=== PATIENT | male | born 1950 | race Caucasian/White ===

== ENCOUNTER → 2017-07-27 17:06 | Outpatient (CLI) | payer MEDICARE, OTHER, SELFPAY ==
--- NOTE | 2017-07-27 17:15 | RAD_ITS ---
STUDY: X-RAY - RIGHT FOOT CLINICAL: Male, 66 years old. Fell off a ladder in April, never had foot looked at, pt has been using that foot at work a lot more and it is now swelling TECHNIQUE: 3 view(s) of the foot. COMPARISON: None. FINDINGS: There is a plantar calcaneal spur. Normal visualized subtalar, talonavicular, calcaneocuboid, tarsal and tarsometatarsal articulations. Healing fractures of the distal second third and fourth metacarpal bone. Healed fracture of the fifth proximal phalanx. There is degenerative arthrosis of the metatarsophalangeal joint of the hallux with a hallux valgus deformity. Normal tibial and fibular sesamoid bones. Normal interphalangeal joint of the great toe. Normal phalanges of the great toe. Normal second through fifth metatarsophalangeal joints. Normal interphalangeal joints and phalanges of the lesser toes. There is soft tissue swelling around the foot. RAD/Foot min 3 Views IMPRESSION: There is soft tissue swelling around the foot. Healing fractures of the distal second third and fourth metacarpal bone. Healed fracture of the fifth proximal phalanx. Electronically Signed: Jorge A Espinoza MD at 18:31 EDT , Service support ,
== END ==
PROVIDERS: Family Provider Family Medicine; PCP Family Medicine; Visit Provider Family Medicine
DX: M79.89 Other specified soft tissue disorders (principal)
CPT/HCPCS: 73630

== ENCOUNTER → 2018-08-08 07:32 | Outpatient (CLI) | payer MEDICARE, OTHER, SELFPAY ==
[2018-08-08 10:02] LABS: Absolute Lymphocyte Count 2.29 X10^3/ul (0.83-4.51); Basophil# 0.03 X10^3/uL; Basophil% 0.6 % (0-1); Eosinophil# 0.21 X10^3/uL; Eosinophils% 4.2 % (0-5); Hematocrit 39.7 % (40-54); Hemoglobin 13.4 g/dl (13.0-16.5); Lymphocyte # 2.29 X10^3/ul (4.0); Lymphocyte % 45.5 % (19-41); Mean Corp Hgb Conc 33.8 g/gl (32-36); Mean Corpuscular Hgb 32.4 pg (27.0-32.0); Mean Corpuscular Volume 95.9 fL (80-94); Mean Platelet Vol. 10.1 fl (6.2-12.0); Monocyte# 0.44 X10^3/uL; Monocyte% 8.7 % (0-10); Neutrophil # 2.04 X10^3/uL (2.7-7.7); Neutrophil % 40.6 % (47-70); Platelet Count 120 K/mm3 (150-450); RBC Distribution Width CV 16.1 % (11.6-14.6); RBC Distribution Width SD 55.4 fl (35.1-43.9); Red Blood Count 4.14 M/mm3 (4.6-6.2)
[2018-08-08 10:08] LABS: POSITIVE COUNT NO; POSITIVE DIFFERENTIAL NO; POSITIVE MORPHOLOGY NO
[2018-08-08 10:15] LABS: Microalbumin,Random Urine 48.8 mg/L (NO RANGE EST.); Microalbumin:Creatinine Ratio 29.2 mg/g CRE (<30 mg/g CRE)
[2018-08-08 10:32] LABS: BUN 11 mg/dL (7-18); Creatinine, Serum 1.13 mg/dL (0.70-1.30); Glucose 112 mg/dL (74-106)
[2018-08-08 10:33] LABS: ALB/GLOB Ratio 1.1 RATIO (0.9-2.4); AST(SGOT) 87 U/L (15-37); Alanine Aminotransfer ALT/SGPT 69 U/L (16-61); Albumin, Serum 3.6 g/dL (3.2-5.0); Alkaline Phosphatase 91 U/L (45-117); Anion Gap 12 (5-15); BUN/Creat Ratio 9.7 RATIO (10-20); Calcium,Total 8.3 mg/dL (8.5-10.1); Chloride 104 mmol/L (98-107); Cholesterol 175 mg/dL (200); EST Glomerular Filtration Rate 68 mL/min (>60); Est Glom Filt Rate - Afr Amer 83 mL/min (>60); Globulin 3.2 g/dL (2.2-4.2); High Density Lipoprotein 41 mg/dL; PSA,Total - Annual Screen 7.91 ng/mL (0.00-4.00); Protein, Total 6.8 g/dL (6.4-8.2); Sodium Level 138 mmol/L (136-145); Triglycerides 770 mg/dL
== END ==
PROVIDERS: Family Provider Family Medicine; PCP Family Medicine; Referring Provider Family Medicine; Visit Provider Family Medicine
DX: E78.5 Hyperlipidemia, unspecified (principal); I10 Essential (primary) hypertension; J44.9 Chronic obstructive pulmonary disease, unspecified; Z12.5 Encounter for screening for malignant neoplasm of prostate
CPT/HCPCS: 36415; 80053; 80061; 82043; 82570; 84153; 85025; G0103

== ENCOUNTER → 2018-11-30 07:27 | Outpatient (CLI) | payer MEDICARE, OTHER, SELFPAY ==
[2018-11-30 08:27] LABS: Absolute Lymphocyte Count 2.25 X10^3/uL (0.83-4.51); Absolute Neutrophil Count 3.1 X10^3/uL (2.0-7.7); Basophil# 0.06 X10^3/uL; Basophil% 0.9 % (0-1); Eosinophil# 0.47 X10^3/uL; Eosinophils% 7.3 % (0-5); Hematocrit 40.9 % (40-54); Hemoglobin 13.5 g/dL (13.0-16.5); Lymphocyte # 2.25 X10^3/ul (4.0); Lymphocyte % 34.9 % (19-41); Mean Corpuscular Hgb 32.1 pg (27.0-32.0); Mean Corpuscular Volume 97.1 fL (80-94); Mean Platelet Vol. 10.1 fl (6.2-12.0); Monocyte# 0.54 X10^3/uL; Monocyte% 8.4 % (0-10); NRBC Flagged by Analyzer 0 % (0-5); Neutrophil # 3.05 X10^3/uL (2.7-7.7); Neutrophil % 47.3 % (47-70); Platelet Count 127 K/mm3 (150-450); RBC Distribution Width CV 15.5 % (11.6-14.6); RBC Distribution Width SD 53.3 fl (35.1-43.9); Red Blood Count 4.21 M/mm3 (4.6-6.2); White Blood Count 6.5 K/mm3 (4.4-11.0)
[2018-11-30 08:51] LABS: Glucose GTT-30 minutes 215 mg/dL (110-170)
[2018-11-30 08:54] LABS: Anion Gap 6 (5-15); BUN 16 mg/dL (7-18); BUN/Creat Ratio 13.6 RATIO (10-20); Calcium,Total 9.1 mg/dL (8.5-10.1); Chloride 106 mmol/L (98-107); Creatinine, Serum 1.18 mg/dL (0.70-1.30); EST Glomerular Filtration Rate 65 mL/min (>60); Est Glom Filt Rate - Afr Amer 78 mL/min (>60); Glucose 111 mg/dL (74-106); Lipase 186 U/L (73-393); Potassium 3.9 mmol/L (3.5-5.1); Sodium Level 138 mmol/L (136-145)
[2018-11-30 08:56] LABS: Glucose GTT- Fasting 112 mg/dL (74-106)
[2018-11-30 09:57] LABS: Glucose GTT- 1 Hour 228 mg/dL (120-170)
[2018-11-30 11:05] LABS: Glucose GTT- 2 Hour 153 mg/dL (70-120)
[2018-11-30 12:18] LABS: Glucose GTT- 4 Hour 88 mg/dL (74-106)
[2018-11-30 12:35] LABS: Glucose GTT- 3 Hour 73 mg/dL (74-106)
== END ==
LOC: LAB.FUTURE 07:30 → LAB 07:44
PROVIDERS: Family Provider Family Medicine; PCP Family Medicine; Referring Provider Family Medicine; Visit Provider Family Medicine
DX: I10 Essential (primary) hypertension (principal)
CPT/HCPCS: 36415; 80048; 82951; 82952; 83690; 85025

== ENCOUNTER → 2019-07-15 08:00 | Outpatient (CLI) | payer MEDICARE, OTHER, SELFPAY ==
[2019-07-15 12:35] LABS: ALB/GLOB Ratio 1.4 RATIO (0.9-2.4); AST(SGOT) 29 U/L (15-37); Alanine Aminotransfer ALT/SGPT 41 U/L (16-61); Albumin, Serum 4.3 g/dL (3.2-5.0); Alkaline Phosphatase 46 U/L (45-117); Anion Gap 9 (5-15); BUN 14 mg/dL (7-18); Calcium,Total 9.7 mg/dL (8.5-10.1); Chloride 104 mmol/L (98-107); Cholesterol 169 mg/dL (200); Creatinine, Serum 0.94 mg/dL (0.70-1.30); EST Glomerular Filtration Rate 85 mL/min (>60); Est Glom Filt Rate - Afr Amer 102 mL/min (>60); Glucose 103 mg/dL (74-106); High Density Lipoprotein 71 mg/dL; Potassium 4.1 mmol/L (3.5-5.1); Protein, Total 7.3 g/dL (6.4-8.2); Sodium Level 139 mmol/L (136-145); Thyroid Stim Hormone (TSH) 2.55 uIU/mL (0.358-3.74); Triglycerides 99 mg/dL; Very Low Density Lipoprotein 20 mg/dL (5-40)
[2019-07-15 12:51] LABS: Microalbumin,Random Urine 47.6 mg/L (NO RANGE EST.); Microalbumin:Creatinine Ratio 64.9 mg/g CRE (<30 mg/g CRE)
== END ==
PROVIDERS: PCP Family Medicine; Referring Provider Family Medicine; Visit Provider Family Medicine
DX: E11.9 Type 2 diabetes mellitus without complications (principal)
CPT/HCPCS: 36415; 80053; 80061; 82043; 82570; 84443

== ENCOUNTER → 2019-10-21 10:01 | Outpatient (CLI) | payer MEDICARE, OTHER, SELFPAY ==
[2019-10-21 12:14] LABS: Absolute Lymphocyte Count 1.87 X10^3/uL (0.83-4.51); Absolute Neutrophil Count 3.5 X10^3/uL (2.0-7.7); Basophil# 0.06 X10^3/uL; Basophil% 0.9 % (0-1); Eosinophil# 0.25 X10^3/uL; Eosinophils% 3.8 % (0-5); Hematocrit 37.9 % (40-54); Hemoglobin 12.9 g/dL (13.0-16.5); Lymphocyte # 1.87 X10^3/ul (4.0); Lymphocyte % 28.7 % (19-41); Mean Corpuscular Hgb 33.5 pg (27.0-32.0); Mean Corpuscular Volume 98.4 fL (80-94); Mean Platelet Vol. 10.7 fl (6.2-12.0); Monocyte# 0.69 X10^3/uL; Monocyte% 10.6 % (0-10); NRBC Flagged by Analyzer 0 % (0-5); Neutrophil # 3.54 X10^3/uL (2.7-7.7); Neutrophil % 54.3 % (47-70); Platelet Count 123 K/mm3 (150-450); RBC Distribution Width CV 15.3 % (11.6-14.6); RBC Distribution Width SD 54.9 fl (35.1-43.9); Red Blood Count 3.85 M/mm3 (4.6-6.2); White Blood Count 6.5 K/mm3 (4.4-11.0)
[2019-10-21 12:49] LABS: ALB/GLOB Ratio 1.2 RATIO (0.9-2.4); AST(SGOT) 31 U/L (15-37); Alanine Aminotransfer ALT/SGPT 61 U/L (16-61); Albumin, Serum 3.9 g/dL (3.2-5.0); Alkaline Phosphatase 54 U/L (45-117); Anion Gap 5 (5-15); BUN 13 mg/dL (7-18); BUN/Creat Ratio 13.1 RATIO (10-20); Calcium,Total 9.3 mg/dL (8.5-10.1); Chloride 104 mmol/L (98-107); EST Glomerular Filtration Rate 79 mL/min (>60); Est Glom Filt Rate - Afr Amer 95 mL/min (>60); Globulin 3.2 g/dL (2.2-4.2); Glucose 111 mg/dL (74-106); Potassium 3.8 mmol/L (3.5-5.1); Protein, Total 7.1 g/dL (6.4-8.2); Sodium Level 137 mmol/L (136-145)
== END ==
PROVIDERS: PCP Family Medicine; Referring Provider Family Medicine; Visit Provider Family Medicine
DX: I10 Essential (primary) hypertension (principal)
CPT/HCPCS: 36415; 80053; 85025

== ENCOUNTER 2020-04-01 14:26 | Outpatient (RCR) | payer MEDICARE, OTHER, SELFPAY | END 2020-04-01 23:59 | LOC: IMMUN 14:26 | PROVIDERS: PCP Family Medicine; Visit Provider Family Medicine | DX: Z23 Encounter for immunization (principal) | CPT/HCPCS: 0011A; 0012A; 91301 ==

== ENCOUNTER → 2020-05-22 11:50 | Outpatient (CLI) | payer MEDICARE, OTHER, SELFPAY ==
[2020-05-22 15:40] LABS: Absolute Lymphocyte Count 1.87 X10^3/uL (0.83-4.51); Basophil# 0.07 X10^3/uL; Basophil% 0.9 % (0-1); Eosinophil# 0.58 X10^3/uL; Eosinophils% 7.9 % (0-5); Hematocrit 38.6 % (40-54); Hemoglobin 12.7 g/dL (13.0-16.5); Lymphocyte # 1.87 X10^3/ul (0.83-4.51); Lymphocyte % 25.4 % (19-41); Mean Corp Hgb Conc 32.9 g/dL (32-36); Mean Corpuscular Hgb 33.2 pg (27.0-32.0); Mean Corpuscular Volume 100.8 fL (80-94); Mean Platelet Vol. 10.5 fl (6.2-12.0); Monocyte# 0.78 X10^3/uL; Monocyte% 10.6 % (0-10); NRBC Flagged by Analyzer 0 % (0-5); Neutrophil # 3.97 X10^3/uL (2.7-7.7); Neutrophil % 53.8 % (47-70); Platelet Count 116 K/mm3 (150-450); RBC Distribution Width CV 14.8 % (11.6-14.6); RBC Distribution Width SD 54.8 fl (35.1-43.9); Red Blood Count 3.83 M/mm3 (4.6-6.2); White Blood Count 7.4 K/mm3 (4.4-11.0)
[2020-05-22 16:01] LABS: Microalbumin:Creatinine Ratio 264.4 mg/g CRE (<30 mg/g CRE)
[2020-05-22 16:08] LABS: Hemoglobin A1c 5.1 % (3.8-5.6)
[2020-05-22 16:33] LABS: ALB/GLOB Ratio 1.4 RATIO (0.9-2.4); AST(SGOT) 35 U/L (15-37); Alanine Aminotransfer ALT/SGPT 73 U/L (16-61); Albumin, Serum 4.3 g/dL (3.2-5.0); Alkaline Phosphatase 58 U/L (45-117); Anion Gap 6 (5-15); BUN 15 mg/dL (7-18); Calcium,Total 9.7 mg/dL (8.5-10.1); Chloride 100 mmol/L (98-107); Creatinine, Serum 1.07 mg/dL (0.70-1.30); EST Glomerular Filtration Rate 72 mL/min (>60); Est Glom Filt Rate - Afr Amer 87 mL/min (>60); Globulin 3.1 g/dL (2.2-4.2); Glucose 105 mg/dL (74-106); Potassium 3.9 mmol/L (3.5-5.1); Protein, Total 7.4 g/dL (6.4-8.2); Sodium Level 132 mmol/L (136-145); Uric Acid 4.5 mg/dL (3.5-7.2)
== END ==
PROVIDERS: PCP Family Medicine; Referring Provider Family Medicine; Visit Provider Family Medicine
DX: I10 Essential (primary) hypertension (principal); J44.9 Chronic obstructive pulmonary disease, unspecified; E11.69 Type 2 diabetes mellitus with other specified complication; M10.9 Gout, unspecified; R97.20 Elevated prostate specific antigen [PSA]
CPT/HCPCS: 36415; 80053; 82043; 82570; 83036; 84153; 84550; 85025

== ENCOUNTER → 2020-06-03 14:35 | Outpatient (CLI) | payer MEDICARE, OTHER, SELFPAY ==
--- NOTE | 2020-06-03 14:40 | CT_ITS ---
STUDY: CT CHEST WITHOUT CONTRAST REASON FOR EXAM: Male, 69 years old. PLEURAL PLAQUE. Hypertension. RADIATION DOSAGE (If Supplied By Facility): CTDIvol = ( 17.03 ) mGy, DLP = ( 651.25 ) mGycm TECHNIQUE: Transaxial imaging was performed without the administration of intravenous contrast material. Multiplanar coronal and sagittal images were reformatted. Individualized dose optimization techniques were used for this CT. COMPARISON: Comparison is made with prior study dated 06/16/2015. FINDINGS: The lungs are normal. Calcified pleural plaques at the lung bases more prominent on the right side. There are calcifications of the coronary arteries. There are multiple small lymph nodes within the mediastinum, which are normal in size and morphology most compatible with reactive lymph hyperplasia. Calcified right hilar lymph nodes. Normal unenhanced pulmonary arteries. There is atherosclerotic calcification of the aortic arch with tortuosity and elongation of the aortic arch and descending thoracic aorta. There are multi-level degenerative changes of the thoracic spine. Calcified splenic granulomas. CT/Chest without Contrast IMPRESSION: Stable calcified pleural plaques at the lung bases worse on the right side. Electronically Signed: Joey Ramirez MD at 15:13 EDT , Service support ,
== END ==
PROVIDERS: PCP Family Medicine; Referring Provider Family Medicine; Visit Provider Family Medicine
DX: J92.9 Pleural plaque without asbestos (principal); J44.9 Chronic obstructive pulmonary disease, unspecified
CPT/HCPCS: 71250; 94060; 94726; 94729

== ENCOUNTER → 2020-09-15 11:14 | Outpatient (CLI) | payer MEDICARE, OTHER, SELFPAY | PROVIDERS: PCP Family Medicine; Referring Provider Nurse Practitioner Adult Health; Visit Provider Nurse Practitioner Adult Health | DX: R97.20 Elevated prostate specific antigen [PSA] (principal) | CPT/HCPCS: 36415; 84153; G0103 ==

== ENCOUNTER → 2020-10-15 11:46 | Outpatient (CLI) | payer MEDICARE, OTHER, SELFPAY ==
[2020-10-15 15:05] LABS: ALB/GLOB Ratio 1.1 RATIO (0.9-2.4); AST(SGOT) 38 U/L (15-37); Alanine Aminotransfer ALT/SGPT 66 U/L (16-61); Albumin, Serum 3.9 g/dL (3.2-5.0); Alkaline Phosphatase 54 U/L (45-117); Anion Gap 6 (5-15); BUN 14 mg/dL (7-18); BUN/Creat Ratio 13.1 RATIO (10-20); Calcium,Total 9.6 mg/dL (8.5-10.1); Chloride 103 mmol/L (98-107); Creatinine, Serum 1.07 mg/dL (0.70-1.30); EST Glomerular Filtration Rate 72 mL/min (>60); Est Glom Filt Rate - Afr Amer 87 mL/min (>60); Globulin 3.4 g/dL (2.2-4.2); Glucose 114 mg/dL (74-106); Magnesium 1.9 mg/dL (1.6-2.6); Potassium 4.3 mmol/L (3.5-5.1); Protein, Total 7.3 g/dL (6.4-8.2); Sodium Level 135 mmol/L (136-145)
[2020-10-15 15:13] LABS: Hemoglobin A1c 5.3 % (3.8-5.6)
== END ==
PROVIDERS: PCP Family Medicine; Referring Provider Family Medicine; Visit Provider Family Medicine
DX: E11.69 Type 2 diabetes mellitus with other specified complication (principal)
CPT/HCPCS: 36415; 80053; 83036; 83735

== ENCOUNTER → 2020-11-16 15:21 | Outpatient (CLI) | payer MEDICARE, OTHER, SELFPAY ==
--- NOTE | 2020-11-17 | IMM_PTH ---
PATIENT: JULIANA SADLER LOC: [facility] U#:[id number] AGE/SX: 74/M ROOM: RE11/16/[address]: Dr. Kendall Adnrade MD : 1950 BED: DIS: SPEC #: [id number] RECD: 11/18/20 11:45 STATUS: MAIN REShira #: [id number] MELISSA: 11/17/20 00:[address]: Kendall Andrade DEPT: IMMUNOHISTOCHEMISTRY RECD BY: Jazmine Butler ENTERED: 11/18/20 11:47 SP TYPE: IMMUNO OTHR DR: Dr. Pérez Marx MD Tissues: D - PROSTATE LEFT E - PROSTATE LEFT Procedures: 34BE12 (add) P40 (add) 34BE12 (initial) PHYSICIAN & INSTITUTION [place] [address] SPECIMEN INFORMATION: Tissue Source: D - Left prostate, apex, core biopsy, E - Left prostate, mid, core biopsy Clinical Info: R97.20 Specimen Number: [id number] D & E CPT code: 04529, 09157 x3 METHODOLOGY: Deparaffinized sections of prefer/formalin-fixed tissue or PAP/DQ stained slides are incubated with monoclonal/polyclonal antibodies/oligonucleotide probes. Localization is made via biotin free immunoperoxidase method. Appropriate controls are performed and reacted as expected. Results on target cell population are indicated in the following table: RESULTS: ANTIBODY / CLONE RESULT Block D P40 (BC28) negative 34BE12 (34BE12) negative Block E P40 (BC28) negative 34BE12 (34BE12) negative These tests were developed and their performance characteristics determined by [facility]. They may not have been cleared or approved by the U.S. Food and Drug Administration. The FDA has determined that such clearance or approval is not necessary. The above immunohistochemical/dualISH markers are ordered and reviewed by the Pathologist. INTERPRETATION: D. Left prostate, apex, core biopsy: Adenocarcinoma. E. Left prostate, mid, core biopsy: Adenocarcinoma. SJ:moon 11/19/2020
--- NOTE | 2020-11-17 | PROSBIL_PTH ---
PATIENT: JULIANA SADLER [facility] U[facility][id number] AGE/SX: 74/M ROOM: RE11/16/[address]: Dr. Kendall Andrade MD : 1950 BED: DIS: SPEC #: [id number] RECD: 11/17/20 13:00 STATUS: MAIN [place] DELIA #: [id number] MELISSA: 11/17/20 00:[address]: Kendall Andrade DEPT: SURGICAL PATHOLOGY RECD BY: Nick Arredondo ENTERED: 11/17/20 13:01 SP TYPE: PROST BX JESSICA DR: Dr. Pérez Marx MD Tissues: A - PROSTATE RIGHT B - PROSTATE RIGHT C - PROSTATE RIGHT D - PROSTATE LEFT E - PROSTATE LEFT F - PROSTATE LEFT Procedures: PROSTATE BX HEADER OPERATION: Prostate biopsy PRE-OP DIAGNOSIS: R97.20 TISSUE SUBMITTED: A - Right apex, B - Right mid, C - Right base, D - Left apex, E - Left mid, F - Left base MICROSCOPIC DIAGNOSIS A. Right prostate, apex, core biopsy: Prostatic adenocarcinoma. Daquan grade: 3+3=6 Number of cores involved: 2/2 Proportion of tissue involved: ~15% Perineural invasion: Not identified. Greatest tumor length: 0.3 cm, discontinuous B. Right prostate, mid, core biopsy: Prostatic adenocarcinoma. Jordan grade: 3+4=7 Number of cores involved: 2/2 Proportion of tissue involved: ~40% Perineural invasion: Not identified. Greatest tumor length: 0.6 cm Focal high-grade prostatic intraepithelial neoplasia (HGPIN). C. Right prostate, base, core biopsy: Prostatic adenocarcinoma. Daquan grade: 4+3=7 Number of cores involved: 2/2 Proportion of tissue involved: >95% Perineural invasion: Not identified. Greatest tumor length: 0.8 cm D. Left prostate, apex, core biopsy: Prostatic adenocarcinoma. Daquan grade: 3+3=6 Number of cores involved: 1/2 Proportion of tissue involved: ~15% Perineural invasion: Not identified. Greatest tumor length: 1.3 cm, discontinuous See comment. E. Left prostate, mid, core biopsy: Prostatic adenocarcinoma. Jordan grade: 3+3=6 Number of cores involved: 1/1 Proportion of tissue involved: ~10% Perineural invasion: Not identified. Greatest tumor length: 0.2 cm Focal high-grade prostatic intraepithelial neoplasia (HGPIN). See comment. F. Left prostate, base, core biopsy: Prostatic adenocarcinoma. Daquan grade: 3+4=7 Number of cores involved: 2/2 Proportion of tissue involved: ~30% Perineural invasion: Not identified. Greatest tumor length: 0.4 cm Focal high-grade prostatic intraepithelial neoplasia (HGPIN). Focal acute and chronic inflammation. SJ:moon 11/18/2020 COMMENT D & E. Immunohistochemistry ([id number]) supports the above diagnosis. MICROSCOPIC DESCRIPTION Slides are reviewed. GROSS DESCRIPTION A - Received is one container designated prostate, right apex. The specimen consists of two elongated fragments of light crabtree-white soft tissue each measuring 0.7 cm in length and 0.1 cm in diameter. The specimen is totally submitted in one cassette. B - Received is one container designated prostate, right mid. The specimen consists of two elongated fragments of light crabtree-white soft tissue each measuring 0.7 cm in length and 0.1 cm in diameter. The specimen is totally submitted in one cassette. C - Received is one container designated prostate, right base. The specimen consists of two elongated fragments of light crabtree-white soft tissue measuring 0.7 and 1.4 cm in length and 0.1 cm in diameter. The specimen is totally submitted in one cassette. D - Received is one container designated prostate, left apex. The specimen consists of two elongated fragments of light crabtree-white soft tissue measuring 1.2 and 1.5 cm in length and 0.1 cm in diameter. The specimen is totally submitted in one cassette. E - Received is one container designated prostate, left mid. The specimen consists of one elongated fragment of light crabtree-white soft tissue measuring 1.3 cm in length and 0.1 cm in diameter. The specimen is totally submitted in one cassette. F - Received is one container designated prostate, left base. The specimen consists of two elongated fragments of light crabtree-white soft tissue measuring 0.6 and 1 cm in length and 0.1 cm in diameter. The specimen is totally submitted in one cassette. / SJ:moon 11/17/20 TC:0 CPT: G0146
== END ==
PROVIDERS: PCP Family Medicine; Referring Provider Urology; Visit Provider Urology
DX: R97.20 Elevated prostate specific antigen [PSA] (principal)
CPT/HCPCS: 88305; 88341; 88342; G0416

== ENCOUNTER → 2020-11-27 13:36 | Outpatient (CLI) | payer MEDICARE, OTHER, SELFPAY ==
--- NOTE | 2020-11-27 13:10 | CT_ITS ---
STUDY: CT ABDOMEN AND PELVIS WITH CONTRAST REASON FOR EXAM: Male, 70 years old. NEOPLASM OF PROSTATE RADIATION DOSAGE (If Supplied By Facility): CTDIvol = ( 15.66 ) mGy, DLP = ( 1805.76 ) mGycm TECHNIQUE: Transaxial images were obtained from the dome of the diaphragm to the symphysis pubis without oral contrast. IV 100ML ISOVUE 300 was administered. Sagittal and coronal images were reconstructed. Individualized dose optimization techniques were used for this CT. COMPARISON: None. 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 The visualized portions of the heart are within normal limits. Multiple small subcentimeter hepatic cysts. Normal gallbladder and extrahepatic biliary system. Normal spleen. Normal pancreas. Normal bilateral adrenal glands. Normal right kidney. Normal left kidney. Normal visualized stomach. Normal small intestine. Normal colon. The appendix is visualized and appears normal. Normal abdominal aorta. Normal inferior vena cava. Normal retroperitoneum. Diffuse bladder wall thickening with mild ureteral dilatation bilaterally consistent with a degree of bladder outlet obstruction. There is enlargement of the prostate gland. There is a small umbilical hernia containing fat. Mild dextroscoliosis of the lumbar spine with degenerative disc disease. CT/Abdomen/Pelvis W IV Cont ONLY IMPRESSION: Enlarged prostate consistent with known prostatic carcinoma with suspected mild amount of bladder outlet obstruction with bladder wall thickening and mild ureteral dilatation bilaterally. No CT evidence of metastatic disease. Electronically Signed: Umair Crowder MD at 8:28 EDT Tel , Service support ,
[2020-11-27 14:00] LABS: CREATININE FINGERSTICK 1.1 mg/dL (0.70-1.30); EGFR FINGERSTICK > 60.0000 mL/min (>60)
== END ==
PROVIDERS: PCP Family Medicine; Referring Provider Urology; Visit Provider Urology
DX: C61 Malignant neoplasm of prostate (principal)
CPT/HCPCS: 74177; Q9967

== ENCOUNTER → 2020-11-30 08:10 | Outpatient (CLI) | payer MEDICARE, OTHER, SELFPAY ==
--- NOTE | 2020-11-30 08:17 | NM_ITS ---
CLINICAL: 70-year-old male with reported history of carcinoma of the prostate. WHOLE BODY 99m Tc MDP RADIONUCLIDE BONE SCINTIGRAPHY COMPARISON: CT of the abdomen-pelvis report 11/27/2020 FINDINGS: Following the intravenous administration of 25.0 mCi of 99m Tc MDP, whole body bone images reveal: 1. Increased radiopharmaceutical concentration is defined in the glenohumeral compartment of the right shoulder-right proximal humeral metaphysis. 2. Facilitated uptake is observed in the acromioclavicular and sternoclavicular compartments of both shoulders, glenohumeral compartment of the left shoulder, bilateral hands, the right wrist, patellofemoral compartments of both knees, first, eighth-ninth and 12th thoracic, first-fifth lumbar vertebra, the left midfoot. 3. The remaining skeletal structures are scintigraphically unremarkable with normal-appearing renal images and urinary bladder activity identified. Mild increased tracer uptake is defined in the medial femoral components of the bilateral and medial tibial compartment of the right presumably asymptomatic knee arthroplasties most consistent with normal postsurgical change. NM/Bone Scan Whole Body IMPRESSION: 1. The increase in tracer uptake observed in the right proximal humerus likely represents severe degenerative arthritis and/or synovial inflammation, and may be further investigated with plain film radiography secondary to the intensity of uptake. 2. Degenerative arthritis appears expressed in the bilateral shoulders and hands, right wrist, thoracic and lumbar spine, left midfoot, the patellofemoral compartments of both knees (in the absence of patellar hardware placement). 3. There is no definitive typical scintigraphic evidence of diffuse axial skeletal metastatic disease on the current examination. Electronically Signed: Umair Belcher DO at 16:08 EDT Tel , Service support ,
== END ==
PROVIDERS: PCP Family Medicine; Referring Provider Urology; Visit Provider Urology
DX: C61 Malignant neoplasm of prostate (principal)
CPT/HCPCS: 78306; A9503

== ENCOUNTER 2021-02-10 05:53 | Day surgery (SDC) | payer MEDICARE, OTHER, SELFPAY ==
--- NOTE | 2021-02-04 14:08 | EKG12_ITS ---
Test Reason : PREOP Blood Pressure : / mmHG Vent. Rate : 095 BPM Atrial Rate : 095 BPM P-R Int : 214 ms QRS Dur : 138 ms QT Int : 378 ms P-R-T Axes : 042 -15 025 degrees QTc Int : 475 ms Sinus rhythm with 1st degree A-V block Right bundle branch block Abnormal ECG Confirmed by MAGGIE FLOOD, NEHAL ([id number]), film editor supervisor ITZ JACOB ([id number]) on 02/10/2021 12:08:08 PM Referred By: Kendall Andrade Confirmed By:NEHAL SERRANO MD
[2021-02-04 15:55] LABS: Hematocrit 36.2 % (40-54); Hemoglobin 12.5 g/dL (13.0-16.5); Mean Corp Hgb Conc 34.5 g/dL (32-36); Mean Corpuscular Hgb 34.4 pg (27.0-32.0); Mean Corpuscular Volume 99.7 fL (80-94); Mean Platelet Vol. 10.1 fl (6.2-12.0); Platelet Count 122 K/mm3 (150-450); RBC Distribution Width CV 14.8 % (11.6-14.6); RBC Distribution Width SD 53.8 fl (35.1-43.9); Red Blood Count 3.63 M/mm3 (4.6-6.2); White Blood Count 7.2 K/mm3 (4.4-11.0)
[2021-02-10] VITALS (11 sets, daily range): BP systolic 142–190; BP diastolic 72–99; PULSE 62–105; RESP 16–18; TEMP 36.1–37.1; O2SAT 93–98; BMI 31.4
--- NOTE | 2021-02-10 | IMM_PTH ---
PATIENT: JULIANA SADLER LOC: [facility] U#:[id number] AGE/SX: 70/M ROOM: RE02/10/[address]: Dr. Kendall Andrade MD : 1950 BED: DIS: 02/11/2021 SPEC #: [id number] RECD: 02/12/21 13:47 STATUS: MAIN REQ #: [id number] MELISSA: 02/10/21 00:[address]: Kendall Andrade DEPT: IMMUNOHISTOCHEMISTRY RECD BY: Jazmine Butler ENTERED: 02/12/21 13:49 SP TYPE: IMMUNO OTHR DR: MD Dr. Pérez Moya MD Tissues: B - Lymph node of pelvis, NOS C - Lymph node of pelvis, NOS Procedures: CK7 (add) Pankeratin (add) CK7 (initial) PHYSICIAN & INSTITUTION [place] [address] SPECIMEN INFORMATION: Tissue Source: B ? Right pelvic lymph nodes, C ? Left pelvic lymph node Clinical Info: Elevated PSA, malignant neoplasm of prostate, nodular prostate Specimen Number: [id number] B1, B2, C1, C2 CPT code: 68916 x2, 27687 x6 METHODOLOGY: Deparaffinized sections of prefer/formalin-fixed tissue or PAP/DQ stained slides are incubated with monoclonal/polyclonal antibodies/oligonucleotide probes. Localization is made via biotin free immunoperoxidase method. Appropriate controls are performed and reacted as expected. Results on target cell population are indicated in the following table: RESULTS: ANTIBODY / CLONE RESULT Block B1 CK7 (OV-TL12/30) negative AE1-3 (AE1/AE3/PCK26) negative Block B2 CK7 (OV-TL12/30) negative AE1-3 (AE1/AE3/PCK26) negative Block C1 CK7 (OV-TL12/30) negative AE1-3 (AE1/AE3/PCK26) negative Block C2 CK7 (OV-TL12/30) negative AE1-3 (AE1/AE3/PCK26) negative These tests were developed and their performance characteristics determined by [facility]. They may not have been cleared or approved by the U.S. Food and Drug Administration. The FDA has determined that such clearance or approval is not necessary. The above immunohistochemical/dualISH markers are ordered and reviewed by the Pathologist. INTERPRETATION: B. Right pelvic lymph nodes, biopsy: Three out of three lymph nodes negative for carcinoma. C. Left pelvic lymph node, biopsy: One out of one lymph node negative for carcinoma. AM:moon 02/15/2021
[2021-02-10] MEDS: Lactated Ringers 1,000 ML 15 ML IV (06:10)
[2021-02-10] MEDS: Lubricating Jelly 60 GM Tube 30 GM (07:30)
--- NOTE | 2021-02-10 07:30 | PROST_PTH ---
PATIENT: JULIANA SADLER LOC: [facility] [place] U#:[id number] AGE/SX: 70/M ROOM: RE02/10/[address]: Dr. Kendall Andrade MD : 1950 BED: DIS: 02/11/2021 SPEC #: [id number] RECD: 02/10/21 14:18 STATUS: MAIN RE #: [id number] MELISSA: 02/10/21 07:[address]: Kendall Andrade DEPT: SURGICAL PATHOLOGY RECD BY: Nick Arredondo ENTERED: 02/11/21 10:38 SP TYPE: PROSTATE OTHR DR: MD Dr. Pérez Moya MD Tissues: A - Adipose tissue B - Lymph node of pelvis, NOS C - Lymph node of pelvis, NOS D - Prostate, NOS Procedures: Surgery Specimen Level IV Surgery Specimen Level V Surgery Specimen Level HEADER OPERATION: Lap robotic radical prostatectomy with nerve sparing and monitor PRE-OP DIAGNOSIS: Elevated PSA, malignant neoplasm of prostate, nodular prostate TISSUE SUBMITTED: A ? Fat over prostate, B ? Right pelvic lymph nodes, C ? Left pelvic lymph node, D - Prostate MICROSCOPIC DIAGNOSIS A. Fat over prostate, biopsy: Mature adipose tissue. No evidence of carcinoma. B. Right pelvic lymph nodes, regional lymphadenectomy: Three out of three lymph nodes negative for carcinoma. See comment. C. Left pelvic lymph node, regional lymphadenectomy: One out of one lymph node negative for carcinoma. See comment. D. Prostate, radical prostatectomy: Adenocarcinoma. See cancer synoptic report below. AM:moon 02/12/2021 COMMENT B & C. Immunohistochemistry ([id number]) supports the above diagnosis. D. PROSTATE CANCER (RADICAL) SUMMARY: Procedure: Radical Prostatectomy Prostate Size: Weight: 98 gm Size: 5.7 x 5 x 4 cm Histologic Type: Adenocarcinoma Histologic Grade: 7 (3+4) Percent of Pattern 4: 30% Percent of Pattern 5: 0 Intraductal Carcinoma: Not identified Tumor Quantitation: 4.5 x 3 x 0.8 cm Extraprostatic Extension: Not identified Urinary Bladder Neck Invasion: Not identified Seminal Vesicle Invasion: Not identified Lymphvascular Invasion: Not identified Perineural Invasion: Present (frequent) Margins: Free of carcinoma Regional Lymph Nodes: Number of lymph nodes involved by carcinoma: 0 Total number of lymph nodes examined: 3 (see specimens B & C) Treatment Effect: Unknown Additional Pathologic Findings: Extensive prostatic intraepithelial neoplasia, benign nodular hyperplasia, glandular and stromal types and minimal chronic inflammation. PATHOLOGIC STAGE: T2 N0 Mx The above summary is in compliance with [employer] (CAP) Cancer Protocols Checklist and [place] Joint Committee on Cancer (AJCC), Staging Manual, 8th Ed. Immunohistochemistry ([id number]) supports the above diagnosis. Case has been reviewed in consultation with Dr. Jimenez who concurs with the above diagnosis. IDC:SJ MICROSCOPIC DESCRIPTION Slides are reviewed. GROSS DESCRIPTION A - Received in fixative is one container labeled with the patient's name and designated fat over prostate. The specimen consists of an irregular fragment of yellow fatty tissue measuring 4 x 3.5 x 1 cm. Serial sections do not reveal mass lesions. Monogram And Letter Paster sections are submitted in one cassette. B - Received in fixative is one container labeled with the patient's name and designated right pelvic lymph nodes. The specimen consists of multiple irregular fragments of yellow-crabtree soft tissue that in aggregate measure 3.5 x 3 x 0.6 cm. Dissection reveals three nodules ranging in size from 1 to 2.2 cm. The nodules are submitted in their entirety in two cassettes as follows: 1 - one nodule, bisected, 2 - two nodules. C - Received in fixative is one container labeled with the patient's name and designated left pelvic lymph node. The specimen consists of multiple irregular fragments of yellow-crabtree soft tissue that in aggregate measure 4 x 3.5 x 0.8 cm. Dissection reveals a single elongated crabtree nodule measuring 3.3 x 1 x 0.8 cm. The nodule is serially sectioned and totally submitted in two cassettes. D - Received in fixative is one container labeled with the patient's name and designated prostate. The specimen consists of a prostate with attached right and left seminal vesicles and vas deferens. The specimen weighs 98 gm. The prostate measures 5.7 cm transversely, 5 cm superior-inferiorly and 4 cm anterior-posteriorly. The specimen is differentially inked as follows: anterior - red, posterior surface - black, right half - blue and left half - green. The prostate is cut from apex to base at 3-4 mm intervals. Serial sections do not reveal distinct mass lesions. Monogram And Letter Paster sections are submitted as follows: 1??bladder shave, 2 - distal urethral margin, 3 - seminal vesicles, 4 - most basal section, 5-8 - apex, 914?- mid portion of prostate, 15-20 - basal portion of prostate. / AM:moon 02/11/21 TC:0 CPT: 19798, 37671 x2, 83275
[2021-02-10] MEDS: Bupivacaine Mpf 0.5% 30 ML VIAL (08:15)
--- NOTE | 2021-02-10 13:08 | PCM.HP.STD ---
HPI - General HPI Narrative JULIANA SADLER, is a 70 M who presents for a radical prostatectomy with bilateral nerve sparing and bilateral pelvic dissection were also going to do nerve monitoring of the pelvic nerves and the suture suspension the urethra. [facility] Medical History (Updated 02/10/21 @ 13:[address] Kendall Andrade MD) Alcohol use Arthritis Asthma Back pain Cancer Diabetes Former smoker High cholesterol History of edema History of stress test Hypertension Loss of hearing Prostate disease Wears glasses Home Medications calcium carbonate [Caltrate 600] 600 mg PO DAILY@0800 01/14/13 [History Last Taken Unknown] coenzyme Q10 [Co Q-10] 60 mg PO DAILY 01/14/13 [History Last Taken Unknown] multivitamin with folic acid [Thera] 1 tab PO DAILY 01/14/13 [History Last Taken Unknown] allopurinol 300 mg PO DAILY 02/03/21 [History Last Taken Unknown] atorvastatin 10 mg PO QHS 02/03/21 [History Last Taken Unknown] clindamycin HCl [Cleocin HCl] 300 mg PO PRN PRN 02/03/21 [History Last Taken Unknown] irbesartan 75 mg PO QHS 02/03/21 [History Last Taken Unknown] metformin 500 mg PO BID 02/03/21 [History Last Taken Unknown] docusate sodium [Colace] 100 mg PO BID #20 cap 02/10/21 [Rx Last Taken Unknown] oxycodone-acetaminophen 1 tab PO Q6H PRN 7 Days #14 tab 02/10/21 [Rx Last Taken Unknown] sulfamethoxazole-trimethoprim [Bactrim DS] 1 tab PO BID #20 tab 02/10/21 [Rx Last Taken Unknown] Allergy/AdvReac Type Severity Reaction Status Date / Time Penicillins Allergy Swelling Verified 02/10/21 06:10 Surgical History (Updated 02/03/21 @ 11:18 by Elena Guan) Hx of appendectomy Hx of lymph node excision Hx of total knee arthroplasty Social History Smoking Status: Former smoker Vital Signs Vital Signs Vital Signs: 02/10/21 06:41 Temperature 97.9 F Temperature Source Temporal Pulse Rate 104 H Respiratory Rate 16 Respiratory Pattern Normal Blood Pressure 174/85 H Blood Pressure Mean 114 Blood Pressure Source Monitor Blood Pressure Position Semi-Fowlers Blood Pressure Location Right Arm Pulse Ox 94 Oxygen Delivery Method Room Air Weight Weight: 102 kg Body Mass Index (BMI) 31.4 Results Lab / Micro Data Result Diagrams: 02/04/21 14:30
--- NOTE | 2021-02-10 13:09 | PCM.DC ---
Discharge Instructions Diet Discharge Diet: Light diet - advance as tolerated and Soft diet Activity Discharge Activity: Return to Normal Activity and May Not Drive (while taking narcotic pain medications.) Dressing / Incision Call your doctor if you observe: Fever of 101 or Higher Catheter: German to leg bag and German to large bag Drain: [place] Follow Up Care Please Follow Up With: Kendall Andrade MD When: Call [phone] for an appointment Test Results: Test results from this visit will be discussed in further detail at your follow-up appointment, if applicable. Discharge Plan Admission Primary Reason for Your Visit: prostate cancer Attending Provider: Kendall Andrade Primary Care Provider: Pérez Marx Consulting Providers: Urbano James Discharge Orders/Prescriptions Prescriptions: New sulfamethoxazole-trimethoprim [Bactrim DS] 800-160 mg tablet 1 tab PO BID Qty: 20 RF: 0 docusate sodium [Colace] 100 mg capsule 100 mg PO BID Qty: 20 RF: 0 oxycodone-acetaminophen 5-325 mg tablet 1 tab PO Q6H PRN (Reason: pain) 7 Days Qty: 14 RF: 0 Continued calcium carbonate [Caltrate 600] 600 MG tablet 600 mg PO DAILY@0800 RF: 0 coenzyme Q10 [Co Q-10] 100 MG capsule 60 mg PO DAILY RF: 0 multivitamin with folic acid [Thera] 1 TABLET tablet 1 tab PO DAILY RF: 0 metformin 500 mg Tablet 500 mg PO BID RF: 0 atorvastatin 10 mg Tablet 10 mg PO QHS RF: 0 irbesartan 75 mg Tablet 75 mg PO QHS RF: 0 allopurinol 300 mg Tablet 300 mg PO DAILY RF: 0 clindamycin HCl [Cleocin HCl] 300 MG capsule 300 mg PO PRN PRN (Reason: DENTAL WORK) RF: 0 Referrals / Follow Up: Pérez Marx MD [Primary Care Provider] - Disposition Disposition (needs filled in before D/C Order can be placed): Home, Self Care
--- NOTE | 2021-02-10 13:10 | PCM.OPRPT ---
Report of Operation Date of Procedure: 02/10/21 Pre-Operative Diagnosis: Prostate cancer, frequency urgency, incontinence mixed, Post-Operative Diagnosis: The same Surgery/Procedure Performed:: Laparoscopic robotic assisted radical prostatectomy, bilateral pelvic lymph node dissection, EMG monitoring of pelvic and sphincter nerves, suture suspension of the urethra Description of Surgical Findings:: Patient presented to the hospital for treatment of his prostate cancer with radical prostatectomy. In the preoperative setting we discussed the options of management for his prostate cancer including active surveillance, radiation treatments, radioactive seeds, and radical robotic prostatectomy. We discussed the side effects of surgery including the potential to lose erections. We discussed the potential to have bladder control problems with stress incontinence which can be temporary or permanent. We discussed the risk of the surgery including the risk of general anesthetic, risk of bleeding, risk of infection, and risk of formation of hernia either incisional hernia or inguinal hernia. After long discussion with the patient the preoperative setting and also reviewed this in the preop area patient signed the consent form and we proceeded with a radical prostatectomy. Patient was taken back to the operating room he was identified, time out procedure was performed and he was placed supine on the table he underwent general anesthesia with intubation. The abdomen was shaved prepped and draped in usual sterile fashion as well as the penis and testicles. A 16 Yemeni catheter was placed into the bladder with clear return of urine. I then made an incision in the umbilicus and dissected down to the fascia advance a Veress needle into the peritoneal cavity and insufflated the peritoneal cavity with CO2 gas. I then placed a 12 mm trocar above the umbilicus. I then visualized the placement of the rest of the trochars, I placed a right arm robotic trocar, and air seal trocar, a suction port 5 mm trocar. And on the left side I placed 2 robotic arms. Once all the trochars were in placed the patient was put in steep Trendelenburg. And the robot was docked the arms were docked and then I placed the 0 degree camera through the robotic arm and also used a 30 degree camera during certain parts of the case. I used scissors in the right arm, prograsp in the third arm, and a bipolar in the second arm. Initial dissection was to free the sigmoid colon off the lateral wall this was done by meticulously dissecting off the peritoneum and the sigmoid colon off the left lateral wall. This then allowed the prograsp to retract the sigmoid colon out of the pelvis. I then went below the bladder and identified the vas deferens incised the peritoneum over the vas deferens and traced the vas deferens below the bladder to the prostate and identified the right and left vasa deferens. Below behind the vas deferens then the seminal vesicles were identified. I then dissected the seminal vesicle free using pinpoint electrocautery and then we identified the other seminal vesicle and then dissected this using pinpoint electrocautery I then elevated the vas deferens and several vesicles off the prostate and was able to sweep the Denonvilliers' fascia off the prostate posteriorly all the way up to the apex of the prostate. Working laterally I made sure I went as lateral as possible to sweep the Denonilliers' fascia off the posterior aspect of the prostate and worked my way back, I then transected the vas deferens and the left and right side the seminal vesicles were then dissected free. And then I pulled out of the pelvis. At this point the bladder was dropped creating the space of Retzius with the bladder on traction with the fourth arm. Using electrocautery I dissected in the anterior peritoneal fascia and then created the space of Retzius dissecting towards the prostate. The pelvic lymph node dissection was then performed both on the left and the right pelvic lymph nodes the nodes that were taken on the right side extended from the right iliac artery lateral pelvic sidewall up to the junction of the artery and the lymph nodes and down to the obturator nerve and then also below the tractor operator laser leveling nerve all the lymph nodes were removed during to remove those lymph nodes we used clips and electrocautery to control small blood vessels and also the control lymphatic. I then went to the left side and again did an extensive lymph node dissection starting of the left iliac artery extending the left iliac vein on the lateral sidewall down to the obturator nerve and the left side beyond the tractor operator laser leveling nerve down further behind it cleaning out all the lymphatic tissue all this tissue was sent off as a specimen we use clips and electrocautery during the dissection. At the end we cleaned out all the lymphatic tissue on the right pelvic wall and no lymphatic tissue in the left pelvic wall. The prostate was then cleaned of the fat over the prostate and the fourth arm was used to retract the bladder and place traction. I then identified the endopelvic fascia that was overlying the prostate on the right side I incised endopelvic fascia and swept the levator muscles off the prostate all the way to the apex on the right side, I then worked my way anterior to the prostate then transected to the puboprostatic ligament and the underlying dorsal vein complex was not injured. I then went to the other side and identified the endopelvic fascia in the left side incised in a fashion the left side and swept the levator muscles off the prostate on the left side all the way up to the apex the puboprostatic ligament on the left side was then dissected and transected I then freed up the fascia overlying the dorsal vein complex. I then used the prograsp to encircled the dorsal vein complex with the prograsp and then switched over to the right and left needle fork truck driver and suture ligated the dorsal vein complex above the prograsp. The prograsp was then placed back in the bladder and put back on traction I then identified the junction between the bladder and the prostate and dissected down between the bladder and the prostate untilI came across the catheter. After the prostate was freed from the bladder we then put in the EMG electrodes through the kit provided coming through the lower abdomen, put the first electrode through the fat to supported against the abdominal wall and then in the pelvic levator muscles on the right side and then pulled the second electrode same thing on the left side and then we stimulated the electrodes we used the action potential did have identified the neurovascular bundle running on the lateral side of the pelvis on the both both the left and right side during the entire case as is like dissecting out the pedicle in the right side and the neurovascular bundle during intermittent fashion I would check the electrodes to make sure that they were still firing and during the entire time both the right side and the left side was still positive with good electrode response and good action potential demonstration that the nerves were spared on both the right and left side. At the completion of the case then the electrodes were then removed.. We then dissected posteriorly to the bladder and prostate to free the prostate and the bladder off each other and the muscles between the bladder and the prostate was then cauterized to free up the bladder. I then went on top of the prostate and identified the endopelvic fascia on top of the prostate this was incised all the way to the apex and then we swept the endopelvic fascia off the prostate laterally and then identified the plane between endopelvic fascia and the prosthetic pseudocapsule and swept the fascia laterally until reaching the course of the neurovascular bundles and then released the neurovascular bundles off the prostate laterally all the way back in a retrograde fashion back to the junction of the pedicles then the prostate was placed on traction with the fourth arm pulling the prostate laterally identified the pedicle to the prostate between the seminal vesicles and the and the neurovascular bundle and this was taken using sequential small hemolocks. After the pedicle was taken the I then dissected underneath the prostate sweeping the neurovascular bundle off the prostate we able to follow the nice smooth plane between the neurovascular bundle and the pseudocapsule all the way to the apex once this was identified we swept this up all the way up to the apex and there was perfect nerve sparing on the right side. Then went to the left side the prostate identified the endopelvic fascia over the left side of the prostate I incised the endopelvic fascia all the way to the apex and then swept this off laterally I then released the neurovascular bundles on the left side of the prostate sweeping him off the prostate laterally I then elevated the prostate up up with the prostate and traction identified the pedicle to the prostate on the left side and then the pedicles taken with sequential Hem-o-augustina clips I then was able to dissected the neurovascular bundle off the left posterior aspect the prostate this was a perfect dissection all the way up on the left side following the pseudocapsule all the way up the left side until we reached the apex of the prostate. After the both the neurovascular bundles has been swept off the posterior to the prostate I then went above and transected the dorsal vein complex there was minimal to no bleeding but then dissected down to the urethra and circumferencial dissected around the urethra I then switched the right and left arm with the needle drivers and I suture-ligated the dorsal vein complex again just to ensure that there was no bleeding from the dorsal vein complex. I then transected through the urethra with scissors and the prostate was then freed and released off the prostate bed and put an Endo Catch bag. At this point the bladder neck was reconstructed and then an anastomosis was performed between the prostate and the bladder with a 3 oh V-Loc stitch in a running fashion starting from the bladder neck at the 6 o'clock position working to the 12 o'clock position with continuous stitches to complete a perfect anastomosis between the bladder and the prostate. I then placed a new catheter into the bladder, an 18 [place]i [place] tip catheter flushed the bladder and there was no leakage from the anastomosis I put 10 cc in the balloon and pulled it up pulled back gently. I then ensured that there was no bleeding from the dorsal vein complex no bleeding from the neurovascular bundles FloSeal was placed as necessary once hemostasis was ensured and adequate then I placed the bladder back in position in the pelvis the prostate was exchanged to the camera port I closed the air seal port with a 10 12 Manny [place] stitch. And the extracted the prostate through the umbilicus. The robot was undocked all the ports were removed under direct visualization then closed the extraction site with 0 Vicryl with a CT1 needle once the extraction site was closed. I then closed all the incision with subcuticular stitches with 4-0 Monocryl and then bandages were placed on the incisions catheter was flushed to make sure it was draining well there was no clots and it was crystal clear patient's anesthetic was reversed he was extubated and taken back to the PACU in stable condition all the needles and sponges and instruments were accounted for. Blood loss was minimal and the drain was a 18 [place]i Carrasquillo catheter. No other surgical drain was left. I was present during the entire case. Surgeon: blas Type of Anesthesia: General Drains: 20 fr [place] Tip carrasquillo Admit VTE Documentation VTE Present on Admission: No VTE Mechan Device Prophylaxis: SCD's VTE Pharm Prophylaxis ordered?: No
--- NOTE | 2021-02-10 14:41 | PCS.PANDOC ---
PANDEMIC DOCUMENTATION INITIATED: Date: 09/21/2020 Time: 190
[2021-02-10] MEDS: Lactated Ringers 1,000 ML 150 ML IV ×2 (14:46→21:09)
[2021-02-10] MEDS: metFORMIN HCl 500 MG Tablet PO (16:46)
[2021-02-10] MEDS: Smz/Tmp Ds Tablet 1 TABLET PO (16:46)
[2021-02-10] MEDS: Losartan Potassium 25 MG Tablet PO (21:09)
[2021-02-10] MEDS: Atorvastatin Calcium 10 MG Tablet PO (21:09)
[2021-02-11 02:24] VITALS: BP 161/75; PULSE 99; RESP 18; TEMP 36.8; O2SAT 96
[2021-02-11] MEDS: Lactated Ringers 1,000 ML 150 ML IV (02:31)
[2021-02-11 07:33] VITALS: BP 130/71; PULSE 105; RESP 16; TEMP 36.9; O2SAT 95
--- NOTE | 2021-02-11 07:40 | PCM.PN.BLA ---
Progress Note Status post radical prostatectomy, up out of bed doing well sitting up in a chair having breakfast Physical Exam Const alert and oriented x3 General Appearance: cooperative HEENT normocephalic and head/scalp atraumatic Eyes PERRL and EOMs intact bilaterally Neck supple, no JVD and no carotid bruits Resp normal respiratory effort, normal air movement and clear to auscultation bilaterally Cardio regular rate and no murmurs GI normal to inspection, nondistended, normoactive bowel sounds and soft to palpation Extremity normal capillary refill General Extremity: no tenderness to palpation of joints or extremities; Negative for edema Skin no rashes or lesions noted and no wounds General Skin Exam: no breakdown Neuro CN's II-XII intact bilaterally Psych affect normal Appearance: appropriate Assessment & Plan Assessment/Plan (1) Malignant neoplasm of prostate: PLAN: Home this morning after breakfast.
[2021-02-11] MEDS: Smz/Tmp Ds Tablet 1 TABLET PO (07:42)
[2021-02-11] MEDS: metFORMIN HCl 500 MG Tablet PO (07:42)
[2021-02-11] MEDS: Multivitamins,Ther W-Minerals Tablet 1 TABLET PO (07:42)
[2021-02-11] MEDS: Calcium (Elemental) 500 MG Tablet PO (07:43)
== END 2021-02-11 10:48 | disposition home or self-care (01) ==
LOC: SDC 05:54 → AC 05:55 → MS2 13:03
PROVIDERS: Anesthesiology; PCP Family Medicine; Referring Provider Urology; Visit Provider Urology
PROC: 0VT04ZZ Resection of Prostate, Percutaneous Endoscopic Approach (ICD-10-PCS; CPT 55866; principal; 2021-02-10 07:10)
DX: C61 Malignant neoplasm of prostate (principal); E11.9 Type 2 diabetes mellitus without complications; N39.46 Mixed incontinence; E78.00 Pure hypercholesterolemia, unspecified; N40.3 Nodular prostate with lower urinary tract symptoms; R35.0 Frequency of micturition; I10 Essential (primary) hypertension; I44.0 Atrioventricular block, first degree; I45.10 Unspecified right bundle-branch block; M19.90 Unspecified osteoarthritis, unspecified site; R97.20 Elevated prostate specific antigen [PSA]; Z23 Encounter for immunization; Z79.84 Long term (current) use of oral hypoglycemic drugs; Z79.899 Other long term (current) drug therapy; Z87.891 Personal history of nicotine dependence
CPT/HCPCS: 55866; 51990; 00865; 36415; 85027; 86850; 86900; 86901; 88304; 88305; 88307; 88309; 88341; 88342; 93005; G0008; J7120; 90686; J2405

== ENCOUNTER 2021-03-26 15:05 | Outpatient (CLI) | payer MEDICARE, OTHER, SELFPAY ==
[2021-03-26 17:41] LABS: Absolute Lymphocyte Count 2.54 X10^3/uL (0.83-4.51); Absolute Neutrophil Count 3.5 X10^3/uL (2.0-7.7); Basophil# 0.03 X10^3/uL; Basophil% 0.4 % (0-1); Eosinophil# 0.36 X10^3/uL; Lymphocyte # 2.54 X10^3/ul (0.83-4.51); Lymphocyte % 35.4 % (19-41); Mean Corp Hgb Conc 33.3 g/dL (32-36); Mean Corpuscular Hgb 33.5 pg (27.0-32.0); Mean Corpuscular Volume 100.6 fL (80-94); Mean Platelet Vol. 10.1 fl (6.2-12.0); Monocyte% 9.8 % (0-10); NRBC Flagged by Analyzer 0 % (0-5); Neutrophil # 3.48 X10^3/uL (2.7-7.7); Neutrophil % 48.6 % (47-70); Platelet Count 123 K/mm3 (150-450); RBC Distribution Width CV 14.9 % (11.6-14.6); RBC Distribution Width SD 55.8 fl (35.1-43.9); Red Blood Count 3.58 M/mm3 (4.6-6.2); White Blood Count 7.2 K/mm3 (4.4-11.0)
[2021-03-26 17:58] LABS: Cholesterol 199 mg/dL (200); High Density Lipoprotein 51 mg/dL; PSA,Total- Diagnostic 0.01 ng/mL (0.0-4.0)
[2021-03-26 18:06] LABS: Microalbumin,Random Urine 93.1 mg/L (NO RANGE EST.); Microalbumin:Creatinine Ratio 115.1 mg/g CRE (<30 mg/g CRE)
== END 2021-03-26 23:59 | disposition home or self-care (01) ==
LOC: MFPLAB 15:10
PROVIDERS: PCP Family Medicine; Referring Provider Family Medicine; Visit Provider Family Medicine
DX: E11.69 Type 2 diabetes mellitus with other specified complication (principal); J44.9 Chronic obstructive pulmonary disease, unspecified; C61 Malignant neoplasm of prostate; I10 Essential (primary) hypertension
CPT/HCPCS: 36415; 82043; 82465; 82570; 83036; 83718; 84153; 85025

== ENCOUNTER → 2021-08-03 | Outpatient (CLI) | payer MEDICARE, OTHER, SELFPAY ==
[2021-08-03 10:22] LABS: PSA,Total- Diagnostic < 0.01 ng/mL (0.0-4.0)
== END | disposition home or self-care (01) ==
LOC: LAB 09:37
PROVIDERS: PCP Family Medicine; Referring Provider Urology; Visit Provider Urology
DX: C61 Malignant neoplasm of prostate (principal)
CPT/HCPCS: 36415; 84153

== ENCOUNTER → 2021-12-06 | Outpatient (CLI) | payer MEDICARE, OTHER, SELFPAY ==
[2021-12-06 11:58] LABS: PSA,Total- Diagnostic < 0.01 ng/mL (0.0-4.0)
== END | disposition home or self-care (01) ==
LOC: LAB 09:37
PROVIDERS: PCP Family Medicine; Referring Provider Urology; Visit Provider Urology
DX: C61 Malignant neoplasm of prostate (principal)
CPT/HCPCS: 36415; 84153

== ENCOUNTER → 2022-06-07 | Outpatient (CLI) | payer MEDICARE, OTHER, SELFPAY ==
[2022-06-07 12:01] LABS: PSA,Total- Diagnostic < 0.01 ng/mL (0.0-4.0)
== END | disposition home or self-care (01) ==
LOC: LAB 10:35
PROVIDERS: PCP Family Medicine; Referring Provider Urology; Visit Provider Urology
DX: C61 Malignant neoplasm of prostate (principal)
CPT/HCPCS: 36415; 84153

== ENCOUNTER 2022-07-07 15:29 | Outpatient (CLI) | payer MEDICARE, OTHER, SELFPAY ==
[2022-07-07 18:24] LABS: Absolute Lymphocyte Count 1.65 X10^3/uL (0.83-4.51); Absolute Neutrophil Count 3.8 X10^3/uL (2.0-7.7); Basophil# 0.07 X10^3/uL; Basophil% 1.1 % (0-1); Eosinophil# 0.28 X10^3/uL; Eosinophils% 4.2 % (0-5); Hematocrit 36.8 % (40-54); Hemoglobin 12.4 g/dL (13.0-16.5); Lymphocyte # 1.65 X10^3/ul (0.83-4.51); Lymphocyte % 24.9 % (19-41); Mean Corp Hgb Conc 33.7 g/dL (32-36); Mean Corpuscular Hgb 34.1 pg (27.0-32.0); Mean Corpuscular Volume 101.1 fL (80-94); Mean Platelet Vol. 10.2 fl (6.2-12.0); Monocyte# 0.74 X10^3/uL; Monocyte% 11.2 % (0-10); NRBC Flagged by Analyzer 0 % (0-5); Neutrophil % 57.2 % (47-70); Platelet Count 135 K/mm3 (150-450); RBC Distribution Width CV 15.3 % (11.6-14.6); RBC Distribution Width SD 56.5 fl (35.1-43.9); Red Blood Count 3.64 M/mm3 (4.6-6.2); White Blood Count 6.6 K/mm3 (4.4-11.0)
[2022-07-07 18:58] LABS: ALB/GLOB Ratio 1.2 RATIO (0.9-2.4); AST(SGOT) 29 U/L (15-37); Alanine Aminotransfer ALT/SGPT 43 U/L (16-61); Alkaline Phosphatase 60 U/L (45-117); Anion Gap 11 (5-15); BUN 18 mg/dL (7-18); BUN/Creat Ratio 17.3 RATIO (10-20); Calcium,Total 9.7 mg/dL (8.5-10.1); Chloride 102 mmol/L (98-107); Creatinine, Serum 1.04 mg/dL (0.70-1.30); EST Glomerular Filtration Rate 74 mL/min (>60); Est Glom Filt Rate - Afr Amer 90 mL/min (>60); Globulin 3.4 g/dL (2.2-4.2); Glucose 125 mg/dL (74-106); Protein, Total 7.4 g/dL (6.4-8.2); Sodium Level 135 mmol/L (136-145); Thyroid Stim Hormone (TSH) 2.42 uIU/mL (0.358-3.74); Uric Acid 4.8 mg/dL (3.5-7.2)
[2022-07-07 20:13] LABS: Microalbumin,Random Urine 71.9 mg/L (NO RANGE EST.); Microalbumin:Creatinine Ratio 186.3 mg/g CRE (<30 mg/g CRE)
[2022-07-08 11:05] LABS: Ferritin 256 ng/mL (26-388); Iron 96 ug/dL (65-175); Iron Binding Capacity,Total 300 ug/dL (250-450)
[2022-07-08 13:17] LABS: Vitamin B12 584 pg/mL (211-911)
== END 2022-07-07 23:59 | disposition home or self-care (01) ==
LOC: MFPLAB 15:30
PROVIDERS: PCP Family Medicine; Visit Provider Family Medicine
DX: M10.9 Gout, unspecified (principal); J44.9 Chronic obstructive pulmonary disease, unspecified; I10 Essential (primary) hypertension; D64.9 Anemia, unspecified
CPT/HCPCS: 36415; 80053; 82043; 82570; 82607; 82728; 83540; 83550; 84443; 84550; 85025

== ENCOUNTER → 2022-08-08 | Outpatient (CLI) | payer MEDICARE, OTHER, SELFPAY ==
--- NOTE | 2022-08-08 15:51 | CT_ITS ---
INDICATION: pleural plaques, COPD EXAMINATION: CT CHEST WITHOUT CONTRAST - CT Chest W/O Contrast Injection TECHNIQUE: Helically acquired images were obtained of the chest. A radiation dose optimization technique was used for this scan. IV Contrast dosage and agent: None. RADIATION DOSAGE (If Supplied By Facility): CTDIvol = ( 17.37 ) mGy, DLP = ( 608.51 ) mGycm COMPARISON: CT chest 06/03/2020 FINDINGS: LUNGS: No consolidation. Mild reticular changes subpleural in the lung bases, unchanged. LARGE AIRWAYS: Unremarkable. PLEURA: No pleural effusion. Calcified pleural plaques fairly diffusely bilaterally, unchanged. No pneumothorax. MEDIASTINUM: Calcified mediastinal and right hilar lymph nodes. HEART: Not enlarged. CORONARY ARTERIES: Coronary artery calcification is seen. AORTA/VESSELS: No aortic aneurysm. ESOPHAGUS: Unremarkable. UPPER ABDOMEN: No acute findings. BONES/SOFT TISSUES: Degenerative changes of the spine. OTHER/LINES: None. CT/Chest without Contrast IMPRESSION: Stable bilateral calcified pleural plaques. Electronically Signed: Hazel Baldwin MD at 21:22 EDT ,
== END | disposition home or self-care (01) ==
PROVIDERS: PCP Family Medicine; Referring Provider Family Medicine; Visit Provider Family Medicine
DX: J44.9 Chronic obstructive pulmonary disease, unspecified (principal)
CPT/HCPCS: 71250

== ENCOUNTER → 2023-01-09 | Outpatient (CLI) | payer MEDICARE, OTHER, SELFPAY ==
[2023-01-09 13:15] LABS: PSA,Total- Diagnostic < 0.01 ng/mL (0.0-4.0)
== END | disposition home or self-care (01) ==
LOC: LAB 11:37
PROVIDERS: PCP Family Medicine; Referring Provider Nurse Practitioner; Visit Provider Nurse Practitioner
DX: C61 Malignant neoplasm of prostate (principal)
CPT/HCPCS: 36415; 84153

== ENCOUNTER → 2023-01-10 | Outpatient (CLI) | payer MEDICARE, OTHER, SELFPAY ==
[2023-01-10 15:33] LABS: Absolute Lymphocyte Count 1.55 X10^3/uL (0.83-4.51); Absolute Neutrophil Count 3.3 X10^3/uL (2.0-7.7); Basophil# 0.05 X10^3/uL; Basophil% 0.8 % (0-1); Eosinophil# 0.52 X10^3/uL; Eosinophils% 8.2 % (0-5); Hematocrit 38.8 % (40-54); Hemoglobin 12.6 g/dL (13.0-16.5); Lymphocyte # 1.55 X10^3/ul (0.83-4.51); Lymphocyte % 24.4 % (19-41); Mean Corp Hgb Conc 32.5 g/dL (32-36); Mean Corpuscular Hgb 33.1 pg (27.0-32.0); Mean Corpuscular Volume 101.8 fL (80-94); Mean Platelet Vol. 10.4 fl (6.2-12.0); Monocyte# 0.85 X10^3/uL; Monocyte% 13.4 % (0-10); NRBC Flagged by Analyzer 0 % (0-5); Neutrophil # 3.29 X10^3/uL (2.7-7.7); Neutrophil % 51.6 % (47-70); Platelet Count 130 K/mm3 (150-450); RBC Distribution Width CV 16.1 % (11.6-14.6); RBC Distribution Width SD 59.7 fl (35.1-43.9); Red Blood Count 3.81 M/mm3 (4.6-6.2); White Blood Count 6.4 K/mm3 (4.4-11.0)
[2023-01-10 15:45] LABS: Vitamin B12 579 pg/mL (211-911)
[2023-01-10 15:54] LABS: ALB/GLOB Ratio 1.2 RATIO (0.9-2.4); AST(SGOT) 22 U/L (15-37); Alanine Aminotransfer ALT/SGPT 38 U/L (16-61); Albumin, Serum 3.8 g/dL (3.2-5.0); Alkaline Phosphatase 57 U/L (45-117); Anion Gap 5 (5-15); BUN 18 mg/dL (7-18); BUN/Creat Ratio 13.6 RATIO (10-20); Calcium,Total 9.9 mg/dL (8.5-10.1); Chloride 102 mmol/L (98-107); Creatinine, Serum 1.32 mg/dL (0.70-1.30); EST Glomerular Filtration Rate 56 mL/min (>60); Est Glom Filt Rate - Afr Amer 68 mL/min (>60); Ferritin 194 ng/mL (26-388); Globulin 3.3 g/dL (2.2-4.2); Glucose 115 mg/dL (74-106); Potassium 4.6 mmol/L (3.5-5.1); Protein, Total 7.1 g/dL (6.4-8.2); Sodium Level 134 mmol/L (136-145)
[2023-01-10 16:00] LABS: Microalbumin:Creatinine Ratio 117.5 mg/g CRE (<30 mg/g CRE)
== END | disposition home or self-care (01) ==
LOC: MFPLAB 12:03
PROVIDERS: PCP Family Medicine; Visit Provider Family Medicine
DX: I10 Essential (primary) hypertension (principal); D64.9 Anemia, unspecified
CPT/HCPCS: 36415; 80053; 82043; 82570; 82607; 82728; 82746; 85025

== ENCOUNTER → 2023-02-16 | Outpatient (CLI) | payer MEDICARE, OTHER, SELFPAY ==
[2023-02-17 17:07] LABS: PROEL- A/G Ratio 1.4 (0.7-1.7); PROEL- Albumin 3.9 g/dL (2.9-4.4); PROEL- Alpha-1 Globulin 0.2 g/dL (0.0-0.4); PROEL- Alpha-2 Globulin 0.7 g/dL (0.4-1.0); PROEL- Beta Globulin 1.1 g/dL (0.7-1.3); PROEL- Gamma Globulin 0.7 g/dL (0.4-1.8); PROEL- Globulin, Total 2.7 g/dL (2.2-3.9); PROEL- TOTAL PROTEIN 6.6 g/dL (6.0-8.5); PROEL-M-Spike Not Observed g/dL (Not Observed)
== END | disposition home or self-care (01) ==
LOC: MFPLAB 11:12
PROVIDERS: PCP Family Medicine; Visit Provider Family Medicine
DX: N28.9 Disorder of kidney and ureter, unspecified (principal)
CPT/HCPCS: 36415; 84165

== ENCOUNTER → 2023-07-10 | Outpatient (CLI) | payer MEDICARE, OTHER, SELFPAY ==
[2023-07-10 13:41] LABS: Vitamin B12 469 pg/mL (211-911)
[2023-07-10 14:40] LABS: Ferritin 239 ng/mL (26-388); Iron 119 ug/dL (65-175); Iron Binding Capacity,Total 325 ug/dL (250-450); PSA,Total- Diagnostic < 0.01 ng/mL (0.0-4.0)
== END | disposition home or self-care (01) ==
LOC: LAB 11:50
PROVIDERS: PCP Family Medicine; Referring Provider Urology; Visit Provider Urology
DX: C61 Malignant neoplasm of prostate (principal)
CPT/HCPCS: 36415; 82607; 82728; 82746; 83540; 83550; 84153

== ENCOUNTER → 2024-01-18 | Outpatient (CLI) | payer MEDICARE, OTHER, SELFPAY ==
[2024-01-18 15:25] LABS: Absolute Lymphocyte Count 2.09 X10^3/uL (0.83-4.51); Absolute Neutrophil Count 4.6 X10^3/uL (2.0-7.7); Basophil# 0.08 X10^3/uL; Basophil% 0.9 % (0-1); Eosinophil# 0.21 X10^3/uL; Eosinophils% 2.5 % (0-5); Hematocrit 39.5 % (40-54); Hemoglobin 12.9 g/dL (13.0-16.5); Lymphocyte # 2.09 X10^3/ul (0.83-4.51); Lymphocyte % 24.8 % (19-41); Mean Corp Hgb Conc 32.7 g/dL (32-36); Mean Corpuscular Hgb 33.2 pg (27.0-32.0); Mean Corpuscular Volume 101.8 fL (80-94); Mean Platelet Vol. 11.7 fl (6.2-12.0); Monocyte# 1.16 X10^3/uL; Monocyte% 13.7 % (0-10); NRBC Flagged by Analyzer 0 % (0-5); Neutrophil # 4.59 X10^3/uL (2.7-7.7); Neutrophil % 54.4 % (47-70); Platelet Count 136 K/mm3 (150-450); RBC Distribution Width CV 16.7 % (11.6-14.6); Red Blood Count 3.88 M/mm3 (4.6-6.2); White Blood Count 8.4 K/mm3 (4.4-11.0)
[2024-01-18 16:08] LABS: ALB/GLOB Ratio 1.1 RATIO (0.9-2.4); AST(SGOT) 42 U/L (15-37); Alanine Aminotransfer ALT/SGPT 77 U/L (16-61); Albumin, Serum 3.6 g/dL (3.2-5.0); Alkaline Phosphatase 72 U/L (45-117); Anion Gap 9 (5-15); BUN 27 mg/dL (7-18); Calcium,Total 9.7 mg/dL (8.5-10.1); Chloride 103 mmol/L (98-107); EST Glomerular Filtration Rate 48 mL/min (>60); Est Glom Filt Rate - Afr Amer 59 mL/min (>60); Globulin 3.2 g/dL (2.2-4.2); Glucose 121 mg/dL (74-106); Magnesium 1.9 mg/dL (1.6-2.6); PSA,Total- Diagnostic < 0.01 ng/mL (0.0-4.0); Potassium 4.6 mmol/L (3.5-5.1); Protein, Total 6.8 g/dL (6.4-8.2); Sodium Level 134 mmol/L (136-145)
== END | disposition home or self-care (01) ==
LOC: MFPLAB 12:09
PROVIDERS: PCP Family Medicine; Referring Provider Family Medicine; Visit Provider Family Medicine
DX: I48.91 Unspecified atrial fibrillation (principal); Z90.79 Acquired absence of other genital organ(s)
CPT/HCPCS: 36415; 80053; 83735; 84153; 84443; 85025

== ENCOUNTER 2024-02-15 13:41 | Inpatient (IN) | payer MEDICARE, OTHER, SELFPAY ==
[2024-02-15] VITALS (15 sets, daily range): BP systolic 99–184; BP diastolic 70–113; PULSE 83–136; RESP 16–24; TEMP 36.4–36.6; O2SAT 93–98; BMI 34.8; BMI 36.8; BMI 36.4
--- NOTE | 2024-02-15 14:00 | EKG12_ITS ---
Test Reason : PALP Blood Pressure : */* mmHG Vent. Rate : 135 BPM Atrial Rate : * BPM P-R Int : * ms QRS Dur : 126 ms QT Int : 302 ms P-R-T Axes : * 18 -10 degrees QTcB Int : 453 ms Atrial fibrillation with rapid ventricular response Right bundle branch block Abnormal ECG Confirmed by Marquis Bautista ([id number]), editorial project manager FRANCIS TAVERAS ([id number]) on 02/16/2024 9:35:56 AM Referred By: Michele Gonsales Confirmed By: Marquis Bautista
--- NOTE | 2024-02-15 14:01 | EX.ED.DYSGE1 ---
HPI History of Present Illness Chief Complaint: Palpitations Narrative Narrative: 73-year-old male presents with his because of atrial fibrillation and palpitations. They state that he was initially diagnosed with atrial fibrillation and started Eliquis on January 17 of last year, almost a month ago. He has had bilateral lower extremity leg swelling and shortness of breath as well. His shortness of breath and dyspnea on exertion actually started in December of last year a month prior to his diagnosis. He was getting an echocardiogram today because he supposed to see Dr. Bautista with cardiology next week, and they state that they were sent down here because of some of the radiologic technologist's findings on the echocardiogram. He is unsure if they completed the entire examination. He denies any recent fevers or chills but he has a cough of white sputum production and leg swelling. No chest pain. [facility] Medical History COPD (chronic obstructive pulmonary disease) Atrial fibrillation Palpitations Gouty arthropathy Erectile dysfunction Essential tremor Lymphedema of leg Hyperlipidemia Loss of hearing Wears glasses Cancer Alcohol use Diabetes Arthritis Prostate disease High cholesterol Back pain Asthma Former smoker History of edema History of stress test Hypertension Home Medications ?Medication ?Instructions ?Recorded ?Last Taken ?Type calcium carbonate (Caltrate 600) 600 mg PO DAILY@0800 01/14/13 Unknown History coenzyme Q10 100 mg capsule (Co 60 mg PO DAILY 01/14/13 Unknown History Q-10) multivitamin with folic acid 400 1 tab PO DAILY 01/14/13 Unknown History mcg tablet (Thera) allopurinol 300 mg tablet 300 mg PO DAILY 02/03/21 Unknown History atorvastatin 10 mg tablet 10 mg PO QHS 02/03/21 Unknown History clindamycin HCl 300 mg capsule 300 mg PO PRN PRN DENTAL WORK 02/03/21 Unknown History (Cleocin HCl) metformin 500 mg tablet 500 mg PO BID 02/03/21 Unknown History docusate sodium 100 mg capsule 100 mg PO BID #20 caps 02/10/21 Unknown Rx (Colace) oxycodone-acetaminophen 5 mg-325 1 tab PO Q6H PRN pain 7 days #14 02/10/21 Unknown Rx mg tablet tabs sulfamethoxazole 800 1 tab PO BID #20 tabs 02/10/21 Unknown Rx mg-trimethoprim 160 mg tablet (Bactrim DS) albuterol sulfate 90 mcg/actuation 2 puff inhalation Q4-6H PRN 02/08/24 Unknown History aerosol inhaler apixaban 5 mg tablet (Eliquis) 5 mg PO BID 02/08/24 Unknown History ipratropium bromide 21 mcg (0.03 intranasal 02/08/24 Unknown History %) nasal spray irbesartan 75 mg tablet 150 mg PO QHS 02/08/24 Unknown History lutein 40 mg-zeaxanthin 1,600 mcg cap PO DAILY 02/08/24 Unknown History capsule metoprolol succinate 25 mg 25 mg PO BID 02/08/24 Unknown History tablet,extended release 24 hr omega 5-yru-loy-fish oil 300 1 cap PO QDAY 02/08/24 Unknown History mg-1,000 mg capsule (Fish Oil) saw palmetto 80 mg capsule 80 mg PO QDAY 02/08/24 Unknown History Allergy/AdvReac Type Severity Reaction Status Date / Time Penicillins Allergy Swelling Verified 02/15/24 13:44 Family History Brother , GI bleed No problems noted. Mother Sudden cardiac Father Hypertension Dementia Carotid artery disease Grandfather Cancer Surgical History History of prostatectomy Hx of appendectomy Hx of lymph node excision Hx of total knee arthroplasty Social History Smoking Status: Former smoker ROS ROS ED ROS Narrative Constitutional: No fever, no chills. HEENT: No sore throat. No neck pain. No loss of vision. No rhinorrhea. Cardiovascular: No chest pain. No palpitations. Positive bilateral pedal edema. Respiratory: Positive cough, positive dyspnea on exertion/shortness of breath. Abdominal: No abdominal pain. No nausea. No vomiting. Genitourinary: No dysuria. No hematuria. Musculoskeletal: No myalgias. No arthralgias. Neurologic: No headaches. No dizziness. No lightheadedness. Skin: No rash. No change in color. EXAM Physical Exam Narrative Exam Narrative: Afebrile. Vital signs noted. Nontoxic-appearing. Cardiovascular examination reveals an irregularly irregular tachycardia. Lungs are clear to auscultation bilaterally. Moving a good amount of air. Abdomen soft and nontender with positive bowel sounds. Neurological examination nonfocal, nonlateralizing. Bilateral trace to +1 pedal edema. Const Vital Signs: 02/15/24 13:42 02/15/24 14:18 Temperature 97.6 F L Temperature Source Oral Pulse Rate 136 H Respiratory Rate 16 Respiratory Effort Short of Breath Blood Pressure 184/111 H Blood Pressure Mean 135 Pulse Ox 98 Oxygen Delivery Method Room Air MDM MDM MDM Narrative Medical decision making narrative: Differential diagnosis includes but not limited to sinus tachycardia versus A-fib with RVR versus CHF versus COPD. EKG was obtained and interpreted by myself independently as A-fib at [address] changes. No STEMI. Patient and his relate history that he started Eliquis on January 17 which was approximately a month ago if not just shy. He did miss 1 dose in the morning on February 04, 2010 days ago. Regarding rate control, his metoprolol had been increased to 25 mg twice a day but he could not tolerate it. Given his A-fib with RVR, for rate control, he will be bolused Cardizem 10 mg intravenously. He had resultant heart rate between 104 and 118 initially. I reviewed his laboratory work and WBC count normal at 9.3 with hemoglobin 13.5, hematocrit 40.1, platelet count is low at 126. When comparing prior laboratories, he has a chronic thrombocytopenia. Review of his electrolyte panel shows hyponatremia of 127. Although he has had chronic hyponatremia with his last few labs this is the lowest it has been, chloride 94. BUN of 32 and creatinine is slowly rising to its high today of 1.67 in comparison to previous labs. While high-sensitivity troponin is 80, I do feel this is more of a troponin leak from his A-fib with RVR. Additionally his BNP is elevated at 434. Chest x-ray in 1 view interpreted by myself does not show CHF or an infiltrate, or pneumothorax. I reviewed the radiology report which confirms my independent interpretation. In discussion with the patient, he was not tolerating his beta-fawad because of other side effects including fatigue. It was not dropping his heart rate significantly. Additionally, he states that he was not on furosemide so I am unsure as to the cause of his hyponatremia. I discussed patient with Dr. Bautista with cardiology. Patient cannot be cardioverted because he has not been anticoagulated for 6 weeks and additionally he missed a dose recently. He suggested further rate control with the diltiazem drip. This was started at 5 mg/h. Additionally, I discussed the patient with Dr. Marquis Bautista with cardiology in person who is seeing the patient in the emergency department. Given the hyponatremia, patient discussed with the hospitalist for admission. Patient discussed with Dr. Leeann Garza. Disposition is admit to PCU. Patient is in stable condition. History & Record Review Discussion w/independent historian: Patient and Family Additional record(s) reviewed:: Prior labs Lab Data Attestation: I reviewed the patient's lab results. Labs: Laboratory Results - last 24 hr 02/15/24 14:00 WBC 9.3 RBC 3.97 L Hgb 13.5 Hct 40.1 MCV 101.0 H MCH 34.0 H MCHC 33.7 RDW Std Deviation 57.5 H RDW Coeff of Zuhair 15.9 H Plt Count 126 L MPV 11.4 Immature Gran % (Auto) 2.100 H Neut % (Auto) 55.9 Lymph % (Auto) 22.3 Gray % (Auto) 13.6 H Eos % (Auto) 4.9 Baso % (Auto) 1.2 H Absolute Neuts (auto) 5.2 Absolute Lymphs (auto) 2.06 Nucleated RBC % 0 Sodium 127 L Potassium 4.6 Chloride 94 L Carbon Dioxide 22.0 Anion Gap 11 BUN 32 H Creatinine 1.67 H Estim Creat Clear Calc 48.94 Est GFR (MDRD) Af Amer 52 L Est GFR (MDRD) Non-Af 43 L BUN/Creatinine Ratio 19.2 Glucose 122 H Calcium 9.3 Troponin I High Sens 80 H B-Natriuretic Peptide 434.2 H Radiography Chest X-Ray - ED: Read by ED Physician and Read by Radiologist Diagnostic Testing: Clinical Impression(s) from Imaging Studies Chest X-Ray 02/15/24 14:35 IMPRESSION: No acute cardiopulmonary pathology considering limited inspiratory effort. Electronically Signed: Michele Dougherty MD at 14:58 EST , Management Discussion w/another healthcare provider: Hospitalist (Dr. Leeann Garza) and Optometry Teacher (Dr. Marquis Bautista, cardiology) Discharge Plan Dx/Rx/DC Orders Clinical Impression: Atrial fibrillation with rapid ventricular response, Acute on chronic kidney failure, Elevated troponin, Elevated brain natriuretic peptide (BNP) level, Hyponatremia Disposition Disposition: Acute Care Hospital [facility]
[2024-02-15] MEDS: dilTIAZem 25 MG/5 ML Vial 10 MG IV BOLUS (14:16)
[2024-02-15 14:22] LABS: Absolute Lymphocyte Count 2.06 X10^3/uL (0.83-4.51); Absolute Neutrophil Count 5.2 X10^3/uL (2.0-7.7); Basophil# 0.11 X10^3/uL; Basophil% 1.2 % (0-1); Eosinophil# 0.45 X10^3/uL; Eosinophils% 4.9 % (0-5); Hematocrit 40.1 % (40-54); Hemoglobin 13.5 g/dL (13.0-16.5); Lymphocyte # 2.06 X10^3/ul (0.83-4.51); Lymphocyte % 22.3 % (19-41); Mean Corp Hgb Conc 33.7 g/dL (32-36); Mean Platelet Vol. 11.4 fl (6.2-12.0); Monocyte# 1.26 X10^3/uL; Monocyte% 13.6 % (0-10); NRBC Flagged by Analyzer 0 % (0-5); Neutrophil # 5.18 X10^3/uL (2.7-7.7); Neutrophil % 55.9 % (47-70); Platelet Count 126 K/mm3 (150-450); RBC Distribution Width CV 15.9 % (11.6-14.6); RBC Distribution Width SD 57.5 fl (35.1-43.9); Red Blood Count 3.97 M/mm3 (4.6-6.2); White Blood Count 9.3 K/mm3 (4.4-11.0)
--- NOTE | 2024-02-15 14:35 | RAD_ITS ---
EXAM: XR CHEST, 1 VIEW CLINICAL INDICATION: Shortness of breath TECHNIQUE: Frontal view of the chest. COMPARISON: CT chest without contrast 04/25/2022. FINDINGS: LUNGS AND PLEURAL SPACES: Pulmonary hypoinflation. No suspicious interstitial infiltrates, consolidation or edema. No pneumothorax. No effusion. HEART: Mild cardiomegaly. MEDIASTINUM: Central airways and mediastinal contour are unremarkable. BONES/JOINTS: Unremarkable. No acute fracture. SOFT TISSUES: Unremarkable. RAD/Chest 1 View (Portable) IMPRESSION: No acute cardiopulmonary pathology considering limited inspiratory effort. Electronically Signed: Michele Dougherty MD at 14:58 EST ,
[2024-02-15 14:38] LABS: Anion Gap 11 (5-15); BUN 32 mg/dL (7-18); BUN/Creat Ratio 19.2 RATIO (10-20); Calcium,Total 9.3 mg/dL (8.5-10.1); Chloride 94 mmol/L (98-107); Creatinine, Serum 1.67 mg/dL (0.70-1.30); EST Glomerular Filtration Rate 43 mL/min (>60); Est Glom Filt Rate - Afr Amer 52 mL/min (>60); Estimated Creatinine Clearance 48.94 ml/min; Glucose 122 mg/dL (74-106); Potassium 4.6 mmol/L (3.5-5.1); Sodium Level 127 mmol/L (136-145); Troponin-I HS 80 pg/mL (3.0-78.0)
[2024-02-15 14:53] LABS: BNP,B-Type NATRIURETIC PEPTIDE 434.2 pg/mL (0-100)
--- NOTE | 2024-02-15 15:31 | HP.PCM.HOS_ITS ---
HPI - General General Date of Admission: 02/15/24 Date of Service: 02/15/24 Chief Complaint: Tachycardia, BL LE edema. HPI Narrative The patient is a 73 y/o M w/ PMHx: Heavier EtOH intake, Obesity, CKD stage III per GFR trending, Chronic Hyponatremia, Chronic Thrombocytopenia, Hx Prostate CA s/p prostatectomy, COPD/Asthma, PAF, HTN, HLD, Essential tremor, Former tobacco use, Diabetes mellitus type II who presents to the [facility] ED on 02/15/2024 with history of recent diagnosis of A-fib and earlier January started on Eliquis and metoprolol at that time with on day of ED presentation planned echocardiogram prior to planned upcoming cardiology visit the following week however he had significantly elevated heart rate and they were concerned prompting the pharmacy technician per diem to refer him to the ED for evaluation. He has had chronic dyspnea, worse with exertion that started in December and chronic lower extremity swelling. He does report persistent leg swelling and occasional cough with white sputum but no fevers or chills nor any chest discomfort. Workup in the ED included T97.6, heart rate 136, BP 184/111, respiratory rate 16, 98% on room air, CBC with WBC 9.3, hemoglobin 13.5, platelet 126 with increased immature granulocyte, BMP with sodium 127, chloride 94, BUN/creatinine 32/1.67, GFR 43, glucose 122, initial troponin 80, BNP 434.2, chest x-ray with no acute cardiopulmonary findings, EKG with atrial fibrillation with RVR. In the ED patient administered 10 mg diltiazem IV bolus x 1 and eventually placed on a diltiazem drip in addition to IV fluids. ED discussed case with cardiology Dr. Bautista. [facility] Medical History COPD (chronic obstructive pulmonary disease) Atrial fibrillation Palpitations Gouty arthropathy Erectile dysfunction Essential tremor Lymphedema of leg Hyperlipidemia Loss of hearing Wears glasses Cancer Alcohol use Diabetes Arthritis Prostate disease High cholesterol Back pain Asthma Former smoker History of edema History of stress test Hypertension Home Medications ?Medication ?Instructions ?Recorded ?Last Taken ?Type calcium carbonate (Caltrate 600) 600 mg PO DAILY@0800 01/14/13 Unknown History coenzyme Q10 100 mg capsule (Co 60 mg PO DAILY 01/14/13 Unknown History Q-10) allopurinol 300 mg tablet 300 mg PO DAILY 02/03/21 Unknown History atorvastatin 10 mg tablet 10 mg PO QHS 02/03/21 Unknown History clindamycin HCl 300 mg capsule 300 mg PO PRN PRN DENTAL WORK 02/03/21 Unknown History (Cleocin HCl) metformin 500 mg tablet 500 mg PO BID 02/03/21 Unknown History docusate sodium 100 mg capsule 100 mg PO BID #20 caps 02/10/21 Unknown Rx (Colace) albuterol sulfate 90 mcg/actuation 2 puff inhalation Q4-6H PRN 02/08/24 Unknown History aerosol inhaler shortness of breath or wheezing apixaban 5 mg tablet (Eliquis) 5 mg PO BID 02/08/24 Unknown History ipratropium bromide 21 mcg (0.03 intranasal PRN allergy symptoms 02/08/24 Unknown History %) nasal spray lutein 40 mg-zeaxanthin 1,600 mcg cap PO DAILY visison 02/08/24 Unknown History capsule metoprolol succinate 25 mg 25 mg PO DAILY 02/08/24 Unknown History tablet,extended release 24 hr omega 6-rih-ssl-fish oil 300 1 cap PO QDAY 02/08/24 Unknown History mg-1,000 mg capsule (Fish Oil) irbesartan 150 mg tablet 150 mg PO DAILY 02/15/24 Unknown History Allergy/AdvReac Type Severity Reaction Status Date / Time Penicillins Allergy Swelling Verified 02/15/24 13:44 Family History Brother , GI bleed No problems noted. Mother Sudden cardiac Father Hypertension Dementia Carotid artery disease Grandfather Cancer Surgical History History of prostatectomy Hx of appendectomy Hx of lymph node excision Hx of total knee arthroplasty Social History (Updated 02/15/24 @ 17:[address] Leeann Garza MD) household members: spouse Smoking Status: Former smoker alcohol intake: current alcohol intake frequency: 3 or more drinks per day Alcohol type: beer and hard liquor details: Notes shot vodka daily as well as 2 beers daily. substance use type: does not use ROS ROS Narrative Admission Review of Systems: CONSTITUTIONAL: No weight loss, fever, chills, + weakness or fatigue. HEENT: Eyes: No visual loss, blurred vision, double vision or yellow sclerae. Ears, Nose, Throat: No hearing loss, sneezing, congestion, runny nose or sore throat. SKIN: No rash or itching, lesions, wounds except + bilateral lower extremity venous stasis skin changes, occasional abrasion, occasional ecchymoses CARDIOVASCULAR: + Increasing weight gain, edema, palpitations/racing heart. No chest pain, chest pressure or chest discomfort, palpitations, orthopnea, syncopal events. RESPIRATORY: + Dyspnea, worse with exertion, occasional cough with white sputum. No wheezing, hemoptysis. GASTROINTESTINAL: No anorexia, nausea, vomiting or diarrhea, abdominal pain, melena, BRBPR. GENITOURINARY: No dysuria, frequency, urgency or retention. NEUROLOGICAL: No headache, dizziness, syncope, paralysis, ataxia, numbness or tingling in the extremities, focal weakness, change in bowel or bladder control, seizure. MUSCULOSKELETAL: + muscle, back pain, joint pain or stiffness. HEMATOLOGIC: No anemia. + easy bleeding/bruising. LYMPHATICS: No enlarged nodes. No history of splenectomy. PSYCHIATRIC: No history of depression or anxiety. ENDOCRINOLOGIC: No reports of sweating, cold or heat intolerance. No polyuria or polydipsia. ALLERGIES:+ History of asthma, rhinitis. Vital Signs Vital Signs Vital Signs: 02/15/24 13:42 02/15/24 14:18 Temperature 97.6 F L Temperature Source Oral Pulse Rate 136 H Respiratory Rate 16 Respiratory Effort Short of Breath Blood Pressure 184/111 H Blood Pressure Mean 135 Pulse Ox 98 Oxygen Delivery Method Room Air Weight Weight: 250 lb Body Mass Index (BMI) 34.8 Physical Exam Narrative Physical Examination: General: Awake, alert, oriented x 3 and cooperative, seated upright in the ED bed, fatigued otherwise no acute distress, Cardizem drip going however rate is still variable. Skin: Normal color, normal turgor, no icterus, no cyanosis except occasional stage ecchymoses, abrasion, bilateral lower extremity venous stasis skin changes. HEENT: AT/NC, EOMI, PERRLA, MMM, no carotid bruits, difficult to discern JVD given thickened neck and dobbs. Lungs: Diminished, greater bases, mildly increased respiratory rate but no distress, no marked rales, ronchi or wheezing. Heart: Irregular irregular; no gallop, rub audible. Abdomen: Soft, obese, NTTP, ND, distant normal BS, no appreciated HSM. Extremities: No cyanosis, no clubbing, pedal to proximal cao edema, see skin. Neurological: Patient awake, alert, oriented as noted, cognitive function intact; pupils equally reactive to light and accommodation, cranial nerves gross normal, moving all 4 extremities, no focal deficits, strength moderately globally decreased Psychiatric: Affect appears fatigued, no acute evidence of depressive or anxiety feelings. Results Lab / Micro Data 02/15/24 14:00 02/15/24 14:00 Labs: Laboratory Results - last 24 hr 02/15/24 14:00: WBC 9.3, RBC 3.97 L, Hgb 13.5, Hct 40.1, MCV 101.0 H, MCH 34.0 H , MCHC 33.7, RDW Std Deviation 57.5 H, RDW Coeff of Zuhair 15.9 H, Plt Count 126 L, MPV 11.4, Immature Gran % (Auto) 2.100 H, Neut % (Auto) 55.9, Lymph % (Auto) 22.3, [place] % (Auto) 13.6 H, Eos % (Auto) 4.9, Baso % (Auto) 1.2 H, Absolute Neuts (auto) 5.2, Absolute Lymphs (auto) 2.06, Nucleated RBC % 0, Sodium 127 L, Potassium 4.6, Chloride 94 L, Carbon Dioxide 22.0, Anion Gap 11, BUN 32 H, C reatinine 1.67 H, Estim Creat Clear Calc 48.94, Est GFR (MDRD) Af Amer 52 L, Est GFR (MDRD) Non-Af 43 L, BUN/Creatinine Ratio 19.2, Glucose 122 H, Calcium 9.3, T roponin I High Sens 80 H, B-Natriuretic Peptide 434.2 H Imaging Radiology Impression Chest X-Ray 02/15/24 14:35 IMPRESSION: No acute cardiopulmonary pathology considering limited inspiratory effort. Electronically Signed: Michele Dougherty MD at 14:58 EST , Assessment & Plan Assessment/Plan (1) Atrial fibrillation with rapid ventricular response: PLAN: Plan The patient is a 73 y/o M w/ PMHx: Heavier EtOH intake, Obesity, CKD stage III per GFR trending, Chronic Hyponatremia, Chronic Thrombocytopenia, Hx Prostate CA s/p prostatectomy, COPD/Asthma, PAF, HTN, HLD, Essential tremor, Former tobacco use, Diabetes mellitus type II who presents to the [facility] ED on 02/15/2024 with history of recent diagnosis of A-fib and earlier January started on Eliquis and metoprolol at that time with on day of ED presentation planned echocardiogram prior to planned upcoming cardiology visit the following week however he had significantly elevated heart rate and they were concerned prompting the pharmacy technician per diem to refer him to the ED for evaluation. He has had chronic dyspnea, worse with exertion that started in December and chronic lower extremity swelling. #1. Paroxsymal atrial fibrillation w/ RVR with concern for possible associated overload/HF unclear type acutely/#2 secondary to persistent RVR: EKG in ED w/ atrial fibrillation w/ RVR. Patient administered Cardizem bolus and transition to drip in ED. Will admit to PCU, will post dose with Lasix 40 mg IV x 1 although may require further diuresis, will maintain on telemetry, obtain cardiac enzyme serial set, clarify if echocardiogram was obtained or not and if not we will obtain now or potentially may need to repeat given his rate with initial attempts, obtain TSH level and magnesium level, continue home Eliquis regimen, continue cardiology consultation, maintain on Cardizem drip, continue metoprolol although given patient's significant fatigue with this medication may need to be altered but will defer to cardiology discretion. #2. Acute on chronic hyponatremia, hypochloremia, higher suspicion for potentially hypovolemic component given recent increase peripheral swelling in the setting of RVR: Admission sodium 127, chloride 94, baseline sodium usually from prior lab review 132-135, given concern for overload in the setting of RVR will actually pulse dose with Lasix 40 mg IV x 1 and continue to closely monitor with repeat CMP in AM. #3. Acute Renal Insufficiency/Elevated Cr on CKD stage II versus progressing disease to Chronic Kidney Disease Stage III, unclear subtype based on previous GFR trending although data only available from 01/2023 onward with a gap in between with GFR earlier more consistent with stage II: Admission BUN/Cr 32/1.67, GFR 43, baseline renal function more recently primarily 1.3-1.5, last noted 01/18/2024 creatinine 1.50, repeat BMP in AM. #4. Chronic COPD/asthma: Will maintain on ATC budesonide therapy, PRN albuterol, HOB, IS parameters. #5. Diabetes mellitus type II: Hold oral home regimen, ADA diet, accu checks w/ ISS. #6. History of prostate cancer: Status post prostatectomy, considered in remission. #7. Former tobacco usage: Encourage continued tobacco cessation. #8. Chronic thrombocytopenia: Unclear etiology, admission platelets 126, baseline similar, continue to trend. #9. Hypertension: Will continue metoprolol, temporally hold irbesartan as utilizing Cardizem drip, add if blood pressure will tolerate, as needed IV hydralazine. #10. Hyperlipidemia: We will continue patient on statin therapy. #11. Obesity: Weight loss and lifestyle changes encouraged. #12. Gout: Will continue patient home allopurinol regimen. #13. Heavier alcohol consumption: Patient notes routine consumption of 1 shot of vodka and 2 beers per day. Discussed appropriate alcohol intake level for his sex. Encouraged decreasing this amount and limiting the number of times weekly. He denies any previous withdrawal symptoms but he has been drinking in this manner for many years although previously heavier he notes. Will maintain on CIWA protocol, MVI, thiamine and folic acid. Magnesium and phosphorus levels requested. #14. DVT prophylaxis: Continue patient home Eliquis regimen. #15. CODE status: Patient ZOË is his who is present and living will is currently in place. Discussed CODE status at length including difference between FULL code, DNR-CCA and DNR-CC status. Following discussions about the differences in these status, requested Full Code status. Advanced Care Planning Face to Face Time: 16 minutes. Charges/Coding Visit Charges Inpatient E&M: 66983 Init Hosp L3 Procedures Hospitalists Procedures: 40466 Advncd Care Plan 30 Min
[2024-02-15] MEDS: Diltiazem 125 MG in Dextrose 5%-Water (100mL Bag) 100 ML IV (15:44)
--- NOTE | 2024-02-15 15:59 | CON.PCM.CA_ITS ---
Assessment & Plan Assessment/Plan (1) Atrial fibrillation with rapid ventricular response: PLAN: The patient by history appears to have gone in atrial fibrillation probably in early December around December 16, 2023 when he first had his profound sudden onset of dyspnea on exertion. He was originally documented January 17, 2024 on EKG with a heart rate of 140. The patient has been on Eliquis since January 18, 2024 he missed 1 dose since that point in time. Since that point in time the patient has deteriorated with retaining fluid with lower extremity edema and then increasing abdominal girth. He has progressively lost his exercise tolerance to the point he can minimally get around in the house to do any activities. The patient has been started on diltiazem drip. A 2D echocardiogram was done earlier today and results are pending. 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 There is no previous history of viral illness are other sickness that pre-dated the December 15 event. He does have a history of COPD which could predispose him to atrial fibrillation. The patient denies any anginal type symptoms although his troponins were elevated he does have a history of hypertension and his heart rate has been in the 140s for some time. He also has renal insufficiency. His EKG does not show any acute ischemic changes and is unchanged from the EKG January 17, 2024. The plan is to admit the patient for aggressive rate control and treatment of his heart failure. He will be treated with IV diltiazem if his rate is not coming under control with IV Cardizem we will add IV amiodarone to attempt chemical cardioversion as well as rate control. The patient has been anticoagulated for 4 weeks. If we are unsuccessful at conversion with amiodarone consideration will be given for direct-current cardioversion later in the hospitalization. Would recommend repeating a limited echocardiogram to reevaluate the LV function in 24 hours once his rate is better controlled. (2) Acute on chronic kidney failure: QUALIFIERS: Acute renal failure type: unspecified Chronic kidney disease stage: stage 3 (moderate) Chronic kidney disease stage 3 subtype: stage 3b (GFR 30-44) Qualified Code(s): N17.9 - Acute kidney failure, unspecified; N18.32 - Chronic kidney disease, stage 3b PLAN: Patient's creatinine has increased from 1.5-1.67 since January 18, 2024. Prior to that he had creatinines in the 1.3-1.5 range. The patient's sodium is also dropped from 134 down to 127. All of this points to low output syndrome probably related to a new onset heart failure. The patient be treated with Lasix 40 mg as a one-time dose. We also need to monitor him to make sure there is no obstruction given his history of prostatectomy and recent history of problems with urine output which may be related to his hypoperfusion as well. The patient is on ARB therapy in his home environment. (3) Elevated troponin: PLAN: The patient's troponin of 80 is consistent with what 1 would expect with the patient with heart failure, renal insufficiency, and atrial fibrillation with a tachycardic rate in the 140 range. The patient has no known history of ischemia he has no previous history of atherosclerotic disease and his EKG does not show any ischemic changes and is unchanged from January 18, 2024. (4) Hyponatremia: PLAN: Patient sodium of 127 down from 134 is consistent with heart failure and this given picture. He has not been on any diuretic therapy in the past 2 months. (5) Elevated brain natriuretic peptide (BNP) level: PLAN: His BNP is elevated at 49 this may be artificially elevated but it is consistent with his physical exam. He does have atrial fibrillation which can elevate the BNP. (6) Hypertension: QUALIFIERS: Hypertension type: primary hypertension Qualified Code(s): I10 - Essential (primary) hypertension PLAN: Patient's blood pressure is currently adequately controlled on his current medical therapy. PLAN: Plan 1. Patient be treated with IV diltiazem and will add amiodarone IV for rate control as needed. 2. We will continue with beta-fawad therapy metoprolol 25 mg daily for the time being. Would recommend switching this to Coreg depending on the cardiac LV function. 3. Continue with ARB therapy. 4. Will monitor response to Lasix and his creatinine and sodium. 5. Once electrolytes and creatinine are maximally treated and heart rate controlled if remains in atrial fibrillation would consider direct-current cardioversion attempt. 6. I will follow along with you in the hospital and we will consider starting amiodarone later today pending the results of his response to the diltiazem. HPI Consult Data Date of Consult: 02/15/24 HPI Narrative Reason for Consultation: A.Fib with RVR and presumed CHF HPI Narrative: JULIANA VIKTORIYA, is a 73 M who presents with a history of a sudden onset of profound dyspnea on exertion that started December 16, 2023 when he was going to visit an art [employer]. He was evaluated and treated for COPD exacerbation initially. He went to [place] to visit family over and had a tough time getting in and out of the airport in [place]. This was due to dyspnea on exertion. The patient returned to the [employer] and followed up with his primary care physician where an EKG on January 17, 2024 revealed him to be in atrial fibrillation with a rapid ventricular sponsor in the 140 bpm range. He had a right bundle branch block and could not rule out an old septal infarct. The patient was started on Eliquis on January 18, 2024. He was placed on metoprolol 25 mg twice daily but several days later started to have swelling in his lower extremities. He felt this was probably related to the metoprolol and it was cut back to 25 mg once a day. The patient was scheduled to see me in the office next . He actually came in for a 2D echocardiogram that had been planned today and upon evaluation was found to be in atrial fibs with a heart rate in the 140 bpm range. He was having shortness of breath and progressive abdominal girth increase as well as bilateral lower extremity edema. He was sent to the emergency room where he was evaluated. The patient was initially given 10 mg bolus of diltiazem which transiently slowed his heart rate from 140 down in the 1 teens. It subsequently drifted back up. The patient had blood work done January 17 which showed a hemoglobin of 12.9 hematocrit 39.5 and platelet count of 136,000 his sodium was 134 potassium 4.6 chloride 103 bicarb 22 BUN 27 and creatinine 1.5 glucose was 121. Estimated GFR was 48. Patient's LFTs were AST was minimally elevated at 42 otherwise they were on unremarkable patient's lipids showed a total cholesterol of 199 HDL was 51 but did not see a print out of the LDL or TSH. Patient does have a history of prostate cancer and his PSA was measured at 0.01. Patient is EKG currently shows atrial fibrillation with a heart rate of 135 bpm with a right bundle branch block is really unchanged from his EKG done 01/18/2024. It appears that the patient initial event occurred December 15 this is probably when he went into atrial fibrillation. He is topically deteriorated with a rapid ventricular response after he was in [place] and then following addition of metoprolol continued to deteriorate with volume retention. This is suggestive of a tachycardia mediated cardiomyopathy. The patient's formal 2D echocardiogram is pending at this time. It was done with a heart rate of 140 which may need to be repeated once we get his heart rate better controlled. The patient's past medical history significant for COPD, palpitations, hyperlipidemia, Lyme's disease, this was manifested by visual changes and neurology neuropathy. He also has a history of prostate disease status post prostatectomy he has a history of hypertension. The patient has no prior history of atherosclerotic disease to his knowledge. He has no family history of early coronary artery disease he has 2 brothers and a sister that have no cardiac events. The patient is not diabetic. He does not smoke. Up until December he had been very active hiking with his routinely. [facility] Medical History COPD (chronic obstructive pulmonary disease) Atrial fibrillation Palpitations Gouty arthropathy Erectile dysfunction Essential tremor Lymphedema of leg Hyperlipidemia Loss of hearing Wears glasses Cancer Alcohol use Diabetes Arthritis Prostate disease High cholesterol Back pain Asthma Former smoker History of edema History of stress test Hypertension Home Medications ?Medication ?Instructions ?Recorded ?Last Taken ?Type calcium carbonate (Caltrate 600) 600 mg PO DAILY@0800 01/14/13 Unknown History coenzyme Q10 100 mg capsule (Co 60 mg PO DAILY 01/14/13 Unknown History Q-10) allopurinol 300 mg tablet 300 mg PO DAILY 02/03/21 Unknown History atorvastatin 10 mg tablet 10 mg PO QHS 02/03/21 Unknown History clindamycin HCl 300 mg capsule 300 mg PO PRN PRN DENTAL WORK 02/03/21 Unknown History (Cleocin HCl) metformin 500 mg tablet 500 mg PO BID 02/03/21 Unknown History docusate sodium 100 mg capsule 100 mg PO BID #20 caps 02/10/21 Unknown Rx (Colace) albuterol sulfate 90 mcg/actuation 2 puff inhalation Q4-6H PRN 02/08/24 Unknown History aerosol inhaler shortness of breath or wheezing apixaban 5 mg tablet (Eliquis) 5 mg PO BID 02/08/24 Unknown History ipratropium bromide 21 mcg (0.03 intranasal PRN allergy symptoms 02/08/24 Unknown History %) nasal spray lutein 40 mg-zeaxanthin 1,600 mcg cap PO DAILY visison 02/08/24 Unknown History capsule metoprolol succinate 25 mg 25 mg PO DAILY 02/08/24 Unknown History tablet,extended release 24 hr omega 1-hjg-cov-fish oil 300 1 cap PO QDAY 02/08/24 Unknown History mg-1,000 mg capsule (Fish Oil) irbesartan 150 mg tablet 150 mg PO DAILY 02/15/24 Unknown History Allergy/AdvReac Type Severity Reaction Status Date / Time Penicillins Allergy Swelling Verified 02/15/24 13:44 Family History Brother , GI bleed No problems noted. Mother Sudden cardiac Father Hypertension Dementia Carotid artery disease Grandfather Cancer Surgical History History of prostatectomy Hx of appendectomy Hx of lymph node excision Hx of total knee arthroplasty Social History Smoking Status: Former smoker ROS Constitutional Constitutional: Reports as per HPI Eyes Eyes: Reports as per HPI ENT HEENT: Reports systems reviewed and no addt'l complaints, except as documented Cardiovascular Cardiovascular: Reports as per HPI Respiratory/Chest Respiratory/Chest: Reports as per HPI Gastrointestinal Gastrointestinal: Reports systems reviewed and no addt'l complaints, except as documented Genitourinary Genitourinary: Reports as per HPI, change in urinary stream and difficulty urinating Musculoskeletal Musculoskeletal: Reports as per HPI Integumentary Integumentary: Reports systems reviewed and no addt'l complaints, except as documented Neurologic Neurologic: Reports as per HPI Psychiatric Psychiatric: Reports systems reviewed and no addt'l complaints, except as documented Endocrine Endocrinology: Reports as per HPI Hematologic/Lymphatic Hematologic/Lymphatic: Reports systems reviewed and no addt'l complaints, except as documented Allergic/Immunologic Allergic/Immunologic: Reports systems reviewed and no addt'l complaints, except as documented Physical Exam Const alert and oriented x3 HEENT normocephalic HEENT Narrative: Naeem skin complexion Eyes EOMs intact bilaterally Neck no JVD Chest inspection of chest normal Resp normal respiratory effort Auscultation: crackles bilateral (Mostly is clear with scant crackles in the bases.) Cardio Cardio Narrative: Distant heart tones due to body habitus and COPD. Rate: tachycardic Rhythm: abnormal rhythm irregularly irregular Heart Sounds: S1 normal and S2 normal; Negative for click, gallop or murmur GI non-tender and no bruits Extremity General Extremity: edema bilateral lower extremity Details: moderate Neuro Neuro Narrative: Alert and oriented x 3 Psych mental status grossly normal Risk Stratification Risk Stratification Applicable: Yes Age >/= 65: Yes >/= 3 CAD Risk Factors (HTN, HLD, DM, family hx of CAD, or current smoker): No Aspirin Use in the Past 7 Days: No Severe Angina (>/= episodes in 24 hours): No EKG ST Changes >/= 0.5mm: No Positive Cardiac Marker: Yes HARJIT Risk Stratification Score: 2 HARJIT % Risk: 8% Risk Charges/Coding Visit Charges Inpatient E&M: 54281 Init Hosp L3 Objective Data Vital Signs: Vital Signs Temp Pulse Resp BP Pulse Ox O2 Del Method 97.6 F L 133 H 17 133/105 H 93 Room Air 02/15/24 13:42 02/15/24 15:45 02/15/24 15:45 02/15/24 15:45 02/15/24 15:45 02/15/24 13:42 Oxygen Delivery Method Room Air Weight: 250 lb Body Mass Index (BMI) 34.8 Lab / Micro Data Attestation: I reviewed the patient's lab results. 02/15/24 14:00 02/15/24 14:00 Labs: Laboratory Results - last 24 hr 02/15/24 14:00: WBC 9.3, RBC 3.97 L, Hgb 13.5, Hct 40.1, MCV 101.0 H, MCH 34.0 H , MCHC 33.7, RDW Std Deviation 57.5 H, RDW Coeff of Zuhair 15.9 H, Plt Count 126 L, MPV 11.4, Immature Gran % (Auto) 2.100 H, Neut % (Auto) 55.9, Lymph % (Auto) 22.3, [place] % (Auto) 13.6 H, Eos % (Auto) 4.9, Baso % (Auto) 1.2 H, Absolute Neuts (auto) 5.2, Absolute Lymphs (auto) 2.06, Nucleated RBC % 0, Sodium 127 L, Potassium 4.6, Chloride 94 L, Carbon Dioxide 22.0, Anion Gap 11, BUN 32 H, C reatinine 1.67 H, Estim Creat Clear Calc 48.94, Est GFR (MDRD) Af Amer 52 L, Est GFR (MDRD) Non-Af 43 L, BUN/Creatinine Ratio 19.2, Glucose 122 H, Calcium 9.3, T roponin I High Sens 80 H, B-Natriuretic Peptide 434.2 H Rhythm Strip Rhythm Strip: A-fib Rate: 135 Cardiology Labs/Tests 02/15/24 14:00: WBC 9.3, RBC 3.97 L, Hgb 13.5, Hct 40.1, MCV 101.0 H, MCH 34.0 H , MCHC 33.7, Plt Count 126 L, MPV 11.4, Immature Gran % (Auto) 2.100 H, Neut % (Auto) 55.9, Lymph % (Auto) 22.3, [place] % (Auto) 13.6 H, Eos % (Auto) 4.9, Baso % (Auto) 1.2 H, Absolute Neuts (auto) 5.2, Nucleated RBC % 0, Sodium 127 L, Potassium 4.6, Chloride 94 L, Carbon Dioxide 22.0, Anion Gap 11, BUN 32 H, C reatinine 1.67 H, Est GFR (MDRD) Af Amer 52 L, Est GFR (MDRD) Non-Af 43 L, BUN/Creatinine Ratio 19.2, Glucose 122 H, Calcium 9.3, B-Natriuretic Peptide 434.2 H Rhythm: EKG: ECHO: Stress Test: Cardiac Cath: PCI: CT Surgery: Holter monitor: EPS: PPM: CXR: Chest CT Scan: Radiography Diagnostic Testing: Radiology Impression Chest X-Ray 02/15/24 14:35 IMPRESSION: No acute cardiopulmonary pathology considering limited inspiratory effort. Electronically Signed: Michele Dougherty MD at 14:58 EST ,
[2024-02-15 16:58] LABS: Magnesium 2.1 mg/dL (1.6-2.6)
--- NOTE | 2024-02-15 17:34 | ECHOL_ITS ---
Reason For Study: A. fib, Re-assess LV function Procedure This was a limited 2D transthoracic echocardiogram. Exam performed portable in patient room. Left Ventricle Normal LV size. The estimated ejection fraction is 45 %. Global hypokinesis. There is also significant [id number] variation in contractility and ejection fraction due to variation in R-R interval due to A-fib. Right Ventricle Normal RV size. Normal systolic function. Atria There is mild biatrial dilatation. MMode/2D Measurements & Calculations LVIDd: 5.2 cm IVSd: 1.3 cm LAV(MOD-bp): 95.1 ml LVIDs: 4.2 cm LVPWd: 1.4 cm LAV(MOD-bp) Indexed: 41.0 ml/m2 FS: 18.6 % LAV(MOD-sp2): 88.0 ml LAV(MOD-sp4): 102.4 ml SV(MOD-sp4): 39.4 ml LVAd ap4: 34.4 cm2 LVAd ap2: 35.0 cm2 LVLd ap4: 9.1 cm LVLd ap2: 9.7 cm SI(MOD-sp4): 17.0 ml/m2 EDV(MOD-sp4): 108.7 ml EDV(MOD-sp2): 105.2 ml EDV(sp4-el): 111.1 ml EDV(sp2-el): 107.8 ml LVAs ap4: 26.1 cm2 LVAs ap2: 26.6 cm2 LVLs ap4: 8.2 cm LVLs ap2: 9.0 cm ESV(MOD-sp4): 69.3 ml ESV(MOD-sp2): 65.9 ml ESV(sp4-el): 70.8 ml ESV(sp2-el): 67.0 ml EF(MOD-sp4): 36.2 % EF(MOD-sp2): 37.3 % EF(sp4-el): 36.3 % SV(MOD-sp2): 39.3 ml SV(sp4-el): 40.3 ml LA A4 area: 28.6 cm2 SI(MOD-sp2): 16.9 ml/m2 LA dimension(2D): 5.0 cm RA A4 area: 27.6 cm2 ECHO/Echo, Limited Study Interpretation Summary The estimated ejection fraction is 45 %. Ordering Physician: Leeann Garza Referring Physician: Michele Gonsales Performed By: Shala Damon RDCS
[2024-02-15 17:36] LABS: Phosphorus 3.9 mg/dL (2.5-4.9)
[2024-02-15 18:34] LABS: Troponin-I HS 66 pg/mL (3.0-78.0)
[2024-02-15] MEDS: Furosemide 40 MG/4 ML Vial IV (18:45)
[2024-02-15] MEDS: 0.9% Saline Lock 10 ML Syringe IV (18:45)
[2024-02-15 18:48] LABS: Bedside Glucose 116 mg/dL (74-106)
[2024-02-15] MEDS: Budesonide Respules 0.5 MG/2 ML AMPUL.NEB. INHALATION (19:05)
[2024-02-15 20:00] LABS: Troponin-I HS 72 pg/mL (3.0-78.0)
[2024-02-15] MEDS: Metoprolol(XL)Succ 25 MG Tablet PO (21:22)
[2024-02-15] MEDS: Docusate Sodium 100 MG Capsule PO (21:22)
[2024-02-15] MEDS: APIXABAN 5 MG TABLET PO (21:22)
[2024-02-15] MEDS: Atorvastatin Calcium 10 MG Tablet PO (21:23)
[2024-02-15 21:47] LABS: Bedside Glucose 124 mg/dL (74-106)
--- NOTE | 2024-02-15 22:51 | NURSING ---
Bladderscanned for 524 ml. pt states he could void. assisted to bathroom voided 600ml in hat. re bladderscanned after voiding for 295 ml
[2024-02-16] VITALS (17 sets, daily range): BP systolic 99–134; BP diastolic 63–117; PULSE 80–107; RESP 14–20; TEMP 35.7–36.8; O2SAT 93–98; BMI 36.1
[2024-02-16] MEDS: Diltiazem 125 MG in Dextrose 5%-Water (100mL Bag) 100 ML 10 MG CONT INF (00:41)
[2024-02-16 00:46] LABS: Troponin-I HS 78 pg/mL (3.0-78.0)
[2024-02-16 06:38] LABS: Bedside Glucose 102 mg/dL (74-106)
[2024-02-16] MEDS: Budesonide Respules 0.5 MG/2 ML AMPUL.NEB. INHALATION (07:56)
--- NOTE | 2024-02-16 08:13 | PCM.PN.CARD ---
Subjective Subjective Patient resting comfortably at 30 degrees in the bed. He is on room air. The patient had 1200 cc diuresis with the 40 mg of Lasix last p.m. His heart rate is come under much better control is now in the 80-110 bpm range on IV diltiazem and metoprolol 25 mg twice daily. Patient is already on ARB therapy his home environment with irbesartan. The patient's weight is down 3 pounds by his bed scale overnight. Objective Data Vital Signs: Vital Signs Temp Pulse Resp BP Pulse Ox O2 Del Method 98 F 80 14 132/117 H 98 Room Air 02/16/24 06:35 02/16/24 06:35 02/16/24 06:35 02/16/24 06:35 02/16/24 06:35 02/16/24 06:35 Oxygen Delivery Method Room Air Weight: 251 lb 15.814 oz Body Mass Index (BMI) 36.1 Intake & Output: Intake and Output for Last 24 Hours 02/14/24 02/15/24 02/16/24 23:59 23:59 23:59 Intake Total 204.67 / 204.67 221.42 / 221.42 Output Total 1200 / 1200 Balance 204.67 / -995.33 -978.58 / -978.58 Lab / Micro Data Attestation: I reviewed the patient's lab results. 02/15/24 14:00 02/15/24 14:00 Labs: Laboratory Results - last 24 hr 02/15/24 14:00: WBC 9.3, RBC 3.97 L, Hgb 13.5, Hct 40.1, MCV 101.0 H, MCH 34.0 H, MCHC 33.7, RDW Std Deviation 57.5 H, RDW Coeff of Zuhair 15.9 H, Plt Count 126 L, MPV 11.4, Immature Gran % (Auto) 2.100 H, Neut % (Auto) 55.9, Lymph % (Auto) 22.3, [place] % (Auto) 13.6 H, Eos % (Auto) 4.9, Baso % (Auto) 1.2 H, Absolute Neuts (auto) 5.2, Absolute Lymphs (auto) 2.06, Nucleated RBC % 0, Sodium 127 L, Potassium 4.6, Chloride 94 L, Carbon Dioxide 22.0, Anion Gap 11, BUN 32 H, Creatinine 1.67 H, Estim Creat Clear Calc 48.94, Est GFR (MDRD) Af Amer 52 L, Est GFR (MDRD) Non-Af 43 L, BUN/Creatinine Ratio 19.2, Glucose 122 H, Calcium 9.3, Phosphorus 3.9, Magnesium 2.1, Troponin I High Sens 80 H, B-Natriuretic Peptide 434.2 H 02/15/24 18:04: Troponin I High Sens 66 02/15/24 18:10: POC Glucose 116 H 02/15/24 19:35: Troponin I High Sens 72 02/15/24 21:19: POC Glucose 124 H 02/16/24 00:10: Troponin I High Sens 78 02/16/24 06:19: POC Glucose 102 Rhythm Strip Rhythm Strip: A-fib Rate: 93 Cardiology Labs/Tests 02/15/24 14:00: WBC 9.3, RBC 3.97 L, Hgb 13.5, Hct 40.1, MCV 101.0 H, MCH 34.0 H, MCHC 33.7, Plt Count 126 L, MPV 11.4, Immature Gran % (Auto) 2.100 H, Neut % (Auto) 55.9, Lymph % (Auto) 22.3, [place] % (Auto) 13.6 H, Eos % (Auto) 4.9, Baso % (Auto) 1.2 H, Absolute Neuts (auto) 5.2, Nucleated RBC % 0, Sodium 127 L, Potassium 4.6, Chloride 94 L, Carbon Dioxide 22.0, Anion Gap 11, BUN 32 H, Creatinine 1.67 H, Est GFR (MDRD) Af Amer 52 L, Est GFR (MDRD) Non-Af 43 L, BUN/Creatinine Ratio 19.2, Glucose 122 H, Calcium 9.3, Phosphorus 3.9, Magnesium 2.1, B-Natriuretic Peptide 434.2 H Rhythm: EKG: ECHO: Stress Test: Cardiac Cath: PCI: CT Surgery: Holter monitor: EPS: PPM: CXR: Chest CT Scan: Radiography Diagnostic Testing: Radiology Impression Chest X-Ray 02/15/24 14:35 IMPRESSION: No acute cardiopulmonary pathology considering limited inspiratory effort. Electronically Signed: Michele Dougherty MD at 14:58 EST , Physical Exam Const alert and oriented x3 HEENT normocephalic Neck no JVD Chest inspection of chest normal Resp normal respiratory effort Auscultation: diminished lung sounds right lower Cardio Rate: regular rate Rhythm: abnormal rhythm irregularly irregular Heart Sounds: S1 normal, S2 normal and murmur systolic I/ soft left sternal border; Negative for click or gallop GI non-tender and no bruits GI Narrative: Distended Extremity General Extremity: edema bilateral lower extremity Details: moderate Skin no rashes or lesions noted Neuro Neuro Narrative: Alert and oriented x 3 Psych mental status grossly normal Assessment & Plan Assessment/Plan (1) Heart failure with reduced ejection fraction: PLAN: Patient's echocardiogram done yesterday as an outpatient was with a heart rate of 140 bpm with rapid atrial fibrillation. His EF at that time was estimated 15%. The patient's symptoms progressive since December 15 are suggestive of atrial fibrillation with rapid ventricular response deteriorating his LV function to where he has become edematous but is not overtly congested. His lung levine remain clear his O2 sats 98% on room air. We will continue to titrate the medications we will reinstitute his ARB therapy and start him on Lasix 40 mg daily p.o. We will add metoprolol to tartrate 50 mg twice daily and discontinue the diltiazem. But also like to reevaluate a limited echo to look at his LV now that his heart rate is down in the 80-1 10 range. Will need to continue to titrate guideline directed medical therapy with beta-fawad ARB as blood pressure and heart rate will tolerate. Will continue with the Lasix to monitor his edema and weight. The patient appears to be retaining fluid in his abdominal cavity has had increased abdominal girth over the last several weeks. He also continues to have 2+ bilateral lower extremity edema. His weight has decreased 3 pounds since admission. Will reevaluate his renal function and consider addition of Aldactone depending on recovery of his renal function. (2) Elevated troponin: PLAN: Patient's initial troponin was 88 since that time and is dropped down below 80 it is now 72 and then 78. I do not feel that this is an acute ischemic event. (3) Acute on chronic kidney failure: QUALIFIERS: Acute renal failure type: unspecified Chronic kidney disease stage: stage 3 (moderate) Chronic kidney disease stage 3 subtype: stage 3b (GFR 30-44) Qualified Code(s): N17.9 - Acute kidney failure, unspecified; N18.32 - Chronic kidney disease, stage 3b PLAN: Patient's creatinine routinely runs 1.3-1.5 by historic data. It is up to 1.67 on admission. I am awaiting today's blood work. Will reinstitute ARB therapy which was his home medication in addition to titrating his metoprolol for heart rate and blood pressure control. (4) Atrial fibrillation with rapid ventricular response: PLAN: Heart rate is come under control with IV diltiazem. Will now transition this to beta-fawad therapy given his LV dysfunction and reinstitute his ARB therapy. Will continue with gentle diuresis. Will also continue with Eliquis and would defer attempted direct-current cardioversion at this point in time until we get his blood pressure in other medications appropriately titrated. (5) Hypertension: QUALIFIERS: Hypertension type: primary hypertension Qualified Code(s): I10 - Essential (primary) hypertension PLAN: Patient has a longstanding history of hypertension. This probably a precipitating event from for his atrial fibrillation. Will continue with his ARB therapy and add metoprolol. Will also add Aldactone as renal function will tolerate. PLAN: Plan 1. Increase beta-fawad therapy to metoprolol tartrate 50 mg twice daily. Wean and DC diltiazem IV. 2. If heart rate not adequately controlled off of diltiazem would increase metoprolol tartrate to 50 mg 3 times daily. 3. Reinstitute the patient's home dose of his ARB therapy irbesartan 150mg daily. Will monitor renal function. Will need to substitute losartan 50 mg daily as his med is not on formulary. 4. Repeat limited echocardiogram now that his heart rate is controlled for better evaluation of his LV function. 5. Will institute gentle diuresis with Lasix 40 mg p.o. daily. 6. Recommend getting the patient up and increasing activity as tolerated. Charges/Coding Visit Charges Inpatient E&M: 44702 [facility] Hosp L3
[2024-02-16] MEDS: Allopurinol 300 MG Tablet PO (08:16)
[2024-02-16] MEDS: APIXABAN 5 MG TABLET PO ×2 (08:16→21:01)
[2024-02-16] MEDS: Folic Acid 1 MG Tablet PO (08:16)
[2024-02-16] MEDS: Thiamine Hydrochloride 100 MG Tablet PO (08:16)
[2024-02-16] MEDS: 0.9% Saline Lock 10 ML Syringe IV (08:17)
[2024-02-16] MEDS: Docusate Sodium 100 MG Capsule PO ×2 (08:17→21:01)
[2024-02-16] MEDS: Multivitamins,Ther W-Minerals Tablet 1 TABLET PO (08:17)
[2024-02-16] MEDS: Metoprolol Tartrate 50 MG Tablet PO ×2 (08:17→14:11)
[2024-02-16 08:37] LABS: Absolute Lymphocyte Count 1.53 X10^3/uL (0.83-4.51); Absolute Neutrophil Count 4.4 X10^3/uL (2.0-7.7); Basophil# 0.08 X10^3/uL; Eosinophil# 0.39 X10^3/uL; Hematocrit 35.1 % (40-54); Hemoglobin 11.9 g/dL (13.0-16.5); Lymphocyte # 1.53 X10^3/ul (0.83-4.51); Lymphocyte % 19.7 % (19-41); Mean Corp Hgb Conc 33.9 g/dL (32-36); Mean Corpuscular Hgb 33.8 pg (27.0-32.0); Mean Corpuscular Volume 99.7 fL (80-94); Mean Platelet Vol. 12.4 fl (6.2-12.0); Monocyte# 1.27 X10^3/uL; Monocyte% 16.3 % (0-10); NRBC Flagged by Analyzer 0 % (0-5); Neutrophil # 4.35 X10^3/uL (2.7-7.7); Neutrophil % 56.1 % (47-70); Platelet Count 113 K/mm3 (150-450); RBC Distribution Width CV 16.2 % (11.6-14.6); RBC Distribution Width SD 58.5 fl (35.1-43.9); Red Blood Count 3.52 M/mm3 (4.6-6.2); White Blood Count 7.8 K/mm3 (4.4-11.0)
[2024-02-16] MEDS: Losartan Potassium 50 MG Tablet PO (08:59)
[2024-02-16] MEDS: Furosemide 40 MG Tablet PO (08:59)
[2024-02-16 09:14] LABS: AST(SGOT) 29 U/L (15-37); Alanine Aminotransfer ALT/SGPT 32 U/L (16-61); Albumin, Serum 2.9 g/dL (3.2-5.0); Alkaline Phosphatase 100 U/L (45-117); Anion Gap 12 (5-15); BUN 29 mg/dL (7-18); BUN/Creat Ratio 19.5 RATIO (10-20); Calcium,Total 8.7 mg/dL (8.5-10.1); Chloride 97 mmol/L (98-107); Cholesterol 82 mg/dL (200); Creatinine, Serum 1.49 mg/dL (0.70-1.30); EST Glomerular Filtration Rate 49 mL/min (>60); Est Glom Filt Rate - Afr Amer 59 mL/min (>60); Estimated Creatinine Clearance 54.24 ml/min; Glucose 98 mg/dL (74-106); High Density Lipoprotein 46 mg/dL; Potassium 4.2 mmol/L (3.5-5.1); Protein, Total 5.9 g/dL (6.4-8.2); Sodium Level 128 mmol/L (136-145); Triglycerides 79 mg/dL; Very Low Density Lipoprotein 16 mg/dL (5-40)
[2024-02-16 11:44] LABS: Bedside Glucose 131 mg/dL (74-106)
--- NOTE | 2024-02-16 12:05 | CASEMGMT ---
RN CHRIS Assessment Face to Face with patient for initial transition planning/care coordination assessment. RN CM introduced self and role at [facility], pt voices understanding. Pt is A&Ox4 and is resting comfortably in bed and is calm. Pt at bedside. Care providers, pharmacy, and demographics verified. Admitting dx: AF RVR LACE Strata: 2 PCP: Pérez Marx Specialists: Denies current. [facility] is consulted (Michele) Preferred Pharmacy: [facility]: [facility] A/B, MMO Prescription Benefit: Yes, [employer] LNOK: Hayley Ortiz (W) Living Arrangements: Pt lives with his in a 2 story home with 2 steps to enter ADLs/IADLs: Ind Transportation: Self, DME: Denies HHC/SNF: reports HH History x 10 years ago after a knee replacement but does not recall the name of the agency Pt?s goal: Return home Plan: Home no needs e/f Eliquis costs. Pt states that he recently got a month supply for 600$. Pt states that he has never used the savings card before. This RN CM provided the pt with the card and educated the pt that this can only be used once per life. Pt states understanding. This RN CM also educated the pt that he can f/u with [facility] as they may be able to provide assistance with the blood thinning medication. Pt thanks this RN CHRIS. Pt 6-click score is 22 and pt denies further needs at this time. Report given to TIP STRETCHER CM. Mallika Navas RN, CM
[2024-02-16] MEDS: Oxymetazoline 0.05% 1 SPRAY SPRAY.BTL 2 SPRAY NASAL ×2 (16:07→20:59)
[2024-02-16 17:15] LABS: Bedside Glucose 128 mg/dL (74-106)
--- NOTE | 2024-02-16 18:44 | PCM.PN.HOSP ---
Reason for Visit Reason for Visit: Diagnoses Hypo-osmolality and hyponatremia (02/15/24) Essential (primary) hypertension (02/15/24) Unspecified atrial fibrillation (02/15/24) Unspecified systolic (congestive) heart failure (02/15/24) Acute kidney failure, unspecified (02/15/24) Chronic kidney disease, stage 3b (02/15/24) Other specified abnormal findings of blood chemistry (02/15/24) Subjective Subjective Patient was seen and examined today, I talked with cardiology about his care, patient's heart rate has improved but is still tachycardic. Patient's ejection fraction on the echo today was 35%. Objective Data Objective Data Vital Signs: Vital Signs Temp Pulse Resp BP Pulse Ox O2 Del Method 97.9 F 107 H 17 105/63 97 Room Air 02/16/24 14:04 02/16/24 14:11 02/16/24 14:04 02/16/24 14:04 02/16/24 14:04 02/16/24 18:00 Oxygen Delivery Method Room Air Weight: 114.3 kg Body Mass Index (BMI) 36.1 Intake & Output: Intake and Output for Last 24 Hours 02/14/24 02/15/24 02/16/24 23:59 23:59 23:59 Intake Total 204.67 / 204.67 1083.50 / 1083.50 Output Total 1999 Balance 204.67 / -995.33 -916.50 / -916.50 Lab / Micro Data 02/16/24 07:26 02/16/24 07:26 Labs: Laboratory Results - last 24 hr 02/15/24 18:10: POC Glucose 116 H 02/15/24 19:35: Troponin I High Sens 72 02/15/24 21:19: POC Glucose 124 H 02/16/24 00:10: Troponin I High Sens 78 02/16/24 06:19: POC Glucose 102 02/16/24 07:26: WBC 7.8, RBC 3.52 L, Hgb 11.9 L, Hct 35.1 L, MCV 99.7 H, MCH 33.8 H, MCHC 33.9, RDW Std Deviation 58.5 H, RDW Coeff of Z[place] 16.2 H, Plt Count 113 L, MPV 12.4 H, Immature Gran % (Auto) 1.900 H, Neut % (Auto) 56.1, Lymph % (Auto) 19.7, [place] % (Auto) 16.3 H, Eos % (Auto) 5.0, Baso % (Auto) 1.0, Absolute Neuts (auto) 4.4, Absolute Lymphs (auto) 1.53, Nucleated RBC % 0, Sodium 128 L, Potassium 4.2, Chloride 97 L, Carbon Dioxide 19.0 L, Anion Gap 12, BUN 29 H, Creatinine 1.49 H, Estim Creat Clear Calc 54.24, Est GFR (MDRD) Af Amer 59 L, Est GFR (MDRD) Non-Af 49 L, BUN/Creatinine Ratio 19.5, Glucose 98, Calcium 8.7, Total Bilirubin 1.10 H, AST 29, ALT 32, Alkaline Phosphatase 100, Total Protein 5.9 L, Albumin 2.9 L, Globulin 3.0, Albumin/Globulin Ratio 1.0, Triglycerides 79, Cholesterol 82, LDL Cholesterol 20, VLDL Cholesterol 16, HDL Cholesterol 46, TSH 4.060 H 02/16/24 11:23: POC Glucose 131 H 02/16/24 16:57: POC Glucose 128 H Rhythm Strip Rhythm Strip: A-fib Rate: 93 Physical Exam Const alert, oriented x3, no apparent distress and healthy appearing General Appearance: cooperative, well kempt and well developed Orientation / Consciousness: awake, oriented to person, oriented to place and oriented to time HEENT normocephalic, head/scalp atraumatic and moist oral mucous membranes Eyes PERRL, EOMs intact bilaterally and conjunctivae normal Neck supple, no JVD, thyroid normal and no carotid bruits General: trachea midline Resp normal respiratory effort, no retractions, no use of accessory muscles and clear to auscultation bilaterally Auscultation: Negative for rales, rhonchi or wheezes Cardio S1 normal heart sound, S2 normal heart sound, no murmurs, no rub and no gallops Cardio Narrative: Heart rate and rhythm is irregular GI normal to inspection, nondistended, normoactive bowel sounds, soft to palpation, non-tender and non-distended Extremity no clubbing, cyanosis or edema Skin no rashes or lesions noted General Skin Exam: no breakdown Neuro oriented x3, CN's II-XII intact bilaterally, moves all extremities, no focal motor deficits and no sensory deficits noted Sensorium / Orientation: awake and alert Speech: speech normal Psych affect normal Assessment & Plan Assessment/Plan (1) Heart failure with reduced ejection fraction: PLAN: Plan 1. Acute systolic congestive heart failure-patient will remain on his current medications as adjusted by cardiology, patient is currently on no supplemental oxygen. #2 atrial fibrillation with rapid ventricular rate-patient's medications will be adjusted by cardiology, he was placed on an increased dose of beta-fawad today #3 hyponatremia-etiology unclear, labs will be monitored #4 rate related cardiomyopathy-cardiology will continue to adjust rate limiting medications. #5 essential hypertension-patient is on metoprolol currently and losartan as well as Lasix Total clinical time spent by myself addressing patient's medical issues, reviewing all of his data, and collaborating with patient's care team: 35 minutes Charges/Coding Visit Charges Inpatient E&M: 99987 Subs Hosp L2
[2024-02-16] MEDS: Atorvastatin Calcium 10 MG Tablet PO (21:00)
[2024-02-16] MEDS: Metoprolol Tartrate 100 MG Tablet PO (21:00)
[2024-02-16 22:49] LABS: Bedside Glucose 112 mg/dL (74-106)
[2024-02-17] VITALS (8 sets, daily range): BP systolic 112–142; BP diastolic 78–96; PULSE 55–120; RESP 16–20; TEMP 35.9–36.7; O2SAT 93–100; BMI 35.6
[2024-02-17 07:19] LABS: Bedside Glucose 107 mg/dL (74-106)
[2024-02-17] MEDS: Metoprolol Tartrate 100 MG Tablet PO ×2 (09:28→17:02)
[2024-02-17] MEDS: Allopurinol 300 MG Tablet PO (09:29)
[2024-02-17] MEDS: Losartan Potassium 50 MG Tablet PO (09:30)
[2024-02-17] MEDS: Thiamine Hydrochloride 100 MG Tablet PO (09:30)
[2024-02-17] MEDS: Folic Acid 1 MG Tablet PO (09:30)
[2024-02-17] MEDS: Furosemide 40 MG Tablet PO (09:30)
[2024-02-17] MEDS: Multivitamins,Ther W-Minerals Tablet 1 TABLET PO (09:30)
[2024-02-17] MEDS: Docusate Sodium 100 MG Capsule PO (09:30)
[2024-02-17] MEDS: APIXABAN 5 MG TABLET PO ×2 (09:30→21:27)
--- NOTE | 2024-02-17 11:16 | PCM.PN.CARD ---
Subjective Subjective Patient is resting company in the seated position in his chair in the room. It was noted this morning that when he got up to the side of the bed to go the bathroom his blood pressure went from the 90 beeper minute range up to 120-140 bpm. The patient was asymptomatic he denies any lightheadedness dizziness or near syncope. Patient reports that he is feeling better but he does have persistent lower extremity edema right slightly greater than the left. He has a history of a lymph node removal from his right groin remotely and has always had some slight edema in the right lower extremity. Patient reports that he has had good urine output. He then went back to bed his heart rate was in the 120 bpm range. He did receive his metoprolol tartrate 100 mg at 10 AM and by 1030 his heart rate was down in the 90 bpm range. Objective Data Vital Signs: Vital Signs Temp Pulse Resp BP Pulse Ox O2 Del Method 97.6 F L 87 18 119/91 H 100 Room Air 02/17/24 10:30 02/17/24 10:30 02/17/24 10:30 02/17/24 10:30 02/17/24 10:30 02/17/24 10:30 Oxygen Delivery Method Room Air Weight: 248 lb 10.903 oz Body Mass Index (BMI) 35.6 Intake & Output: Intake and Output for Last 24 Hours 02/15/24 02/16/24 02/17/24 23:59 23:59 23:59 Intake Total 204.67 / 204.67 1083.50 / 1083.50 240 / 240 Output Total 1999 / 2450 950 / 950 Balance 204.67 / -995.33 -916.50 / -1366.50 -710 / -710 Lab / Micro Data Attestation: I reviewed the patient's lab results. 02/16/24 07:26 02/16/24 07:26 Labs: Laboratory Results - last 24 hr 02/16/24 11:23: POC Glucose 131 H 02/16/24 16:57: POC Glucose 128 H 02/16/24 20:59: POC Glucose 112 H 02/17/24 07:01: POC Glucose 107 H Rhythm Strip Rhythm Strip: A-fib Rate: 95 Cardiology Labs/Tests Rhythm: EKG: ECHO: Stress Test: Cardiac Cath: PCI: CT Surgery: Holter monitor: EPS: PPM: CXR: Chest CT Scan: Physical Exam Narrative In no apparent distress seated comfortably in the recliner in the room. Const alert and oriented x3 HEENT normocephalic Eyes EOMs intact bilaterally Neck no JVD Chest inspection of chest normal Resp normal respiratory effort Auscultation: crackles right base Cardio Rate: regular rate Rhythm: abnormal rhythm irregularly irregular Heart Sounds: S1 normal and S2 normal; Negative for click, gallop or murmur GI GI Narrative: Protuberant nontender but tense. Positive bowel sounds Extremity General Extremity: edema right lower extremity moderate and left lower extremity mild Skin Skin Narrative: Mild discoloration noted on both lower extremities. No new changes. Neuro Neuro Narrative: Alert and oriented x 3 Psych mental status grossly normal Assessment & Plan Assessment/Plan (1) Heart failure with reduced ejection fraction: PLAN: Patient's limited repeat echocardiogram showed an EF in the 35% range with his heart rate much better controlled. His initial echocardiogram was estimated with a heart rate of 140 to have an EF in the 15 to 20% range. This may have been rate related. The patient continues to diurese he is over 2 L negative today since admission. We will reevaluate his basic metabolic panel in 24 hours. The patient denies any symptoms he is not aware when his heart rate is in the 140 bpm range when he is up in the room. He is asymptomatic. It does appear by trying to put his history in chronological order that he probably went into atrial fibrillation December 25 when he had sudden onset of dyspnea on exertion and subsequently deteriorated over the last several weeks related to a presumed cardiomyopathy related to tachycardia. At this point time we continue to titrate his medical regiment for better full-time rate control. Heart rate at 100 mg twice daily of metoprolol tartrate has still been in the 120-140 bpm range with minimal activity in his room. We will add amiodarone 400 mg twice daily today. And plan on sending him home on 200 mg twice daily. (2) Acute on chronic kidney failure: QUALIFIERS: Acute renal failure type: unspecified Chronic kidney disease stage: stage 3 (moderate) Chronic kidney disease stage 3 subtype: stage 3b (GFR 30-44) Qualified Code(s): N17.9 - Acute kidney failure, unspecified; N18.32 - Chronic kidney disease, stage 3b PLAN: Patient's renal function will be reevaluated tomorrow. Will also see him in the office next , February 22, 2024. At that time we will reevaluate a basic metabolic panel EKG and obtain his blood pressure and heart rate response. Will then titrate his medical regiment accordingly. Would consider adding Aldactone if his renal status stabilizes. (3) Atrial fibrillation with rapid ventricular response: PLAN: Patient remains in atrial fibrillation with less than optimal rate control. As noted above we will continue metoprolol tartrate 100 mg at breakfast and supper and add amiodarone at noon and bedtime 200 mg twice daily at home but will start with 400 mg twice daily today. Will reevaluate the patient on February 22, 2024 in the office. Will plan tentatively for direct-current cardioversion 3 to 4 weeks later. We need to get the patient optimally treated for his LV dysfunction prior to attempted cardioversion as this will allow for a better chance to maintain sinus rhythm and could potentially cardiovert the patient chemically within the interim timeframe. The patient has been on Eliquis since January 18, 2024 and he only missed 1 dose around February 04. (4) Hypertension: QUALIFIERS: Hypertension type: primary hypertension Qualified Code(s): I10 - Essential (primary) hypertension PLAN: Blood pressure is adequate controlled at this point in time. The plan would be to switch him back to his Ibersartan 150 mg daily when he is discharged to his home environment. PLAN: Plan 1. Will add amiodarone 400 mg twice daily today for rate control and potential help with maintaining sinus rhythm after cardioversion. 2. We will plan on discharging tomorrow morning on amiodarone 200 mg twice daily and metoprolol tartrate 100 mg twice daily alternating throughout the day which will be outlined with the patient and his . 3. Continue with diuresis. 4. Will check basic metabolic panel in the morning to determine final dosing for the Lasix and any need for potassium replacement. 5. The patient already has an appointment to see Dr. Bautista February 22, 2024 in the [facility] office. He will keep that appointment. 6. Will obtain EKG blood pressure and heart rate and titrate medications at his office visit February 21. 7. I went over in detail the plan in the hospital as well as early after discharge with the patient's the patient and his son today. Charges/Coding Visit Charges Inpatient E&M: 81583 Subs Hosp L3
[2024-02-17] MEDS: Amiodarone 200 MG Tablet 400 MG PO ×2 (12:32→21:27)
[2024-02-17 12:53] LABS: Bedside Glucose 105 mg/dL (74-106)
[2024-02-17 17:14] LABS: Bedside Glucose 121 mg/dL (74-106)
--- NOTE | 2024-02-17 18:48 | PCM.PN.HOSP ---
Reason for Visit Reason for Visit: Diagnoses Hypo-osmolality and hyponatremia (02/15/24) Essential (primary) hypertension (02/15/24) Unspecified atrial fibrillation (02/15/24) Unspecified systolic (congestive) heart failure (02/15/24) Acute kidney failure, unspecified (02/15/24) Chronic kidney disease, stage 3b (02/15/24) Other specified abnormal findings of blood chemistry (02/15/24) Subjective Subjective Patient was seen and examined today, I talk with cardiology about the patient's care-he states he is added amiodarone to the patient's medications and increased patient's beta-fawad. Patient's heart rate is still not under good control especially when he is active. Patient still remains on room air, he does not complain of any shortness of breath. Objective Data Objective Data Vital Signs: Vital Signs Temp Pulse Resp BP Pulse Ox O2 Del Method 98.0 F 101 H 18 112/78 100 Room Air 02/17/24 16:30 02/17/24 17:02 02/17/24 16:30 02/17/24 17:02 02/17/24 16:30 02/17/24 16:30 Oxygen Delivery Method Room Air Weight: 112.8 kg Body Mass Index (BMI) 35.6 Intake & Output: Intake and Output for Last 24 Hours 02/15/24 02/16/24 02/17/24 23:59 23:59 23:59 Intake Total 204.67 / 204.67 1083.50 / 1083.50 900 / 900 Output Total 1999 / 2450 1850 / 1850 Balance 204.67 / -995.33 -916.50 / -1366.50 -950 / -950 Lab / Micro Data 02/16/24 07:26 02/16/24 07:26 Labs: Laboratory Results - last 24 hr 02/16/24 20:59: POC Glucose 112 H 02/17/24 07:01: POC Glucose 107 H 02/17/24 12:26: POC Glucose 105 02/17/24 16:51: POC Glucose 121 H Rhythm Strip Rhythm Strip: A-fib Rate: 95 Physical Exam Narrative alert, oriented x3, no apparent distress and healthy appearing General Appearance: cooperative, well kempt and well developed Orientation / Consciousness: awake, oriented to person, oriented to place and oriented to time HEENT normocephalic, head/scalp atraumatic and moist oral mucous membranes Eyes PERRL, EOMs intact bilaterally and conjunctivae normal Neck supple, no JVD, thyroid normal and no carotid bruits General: trachea midline Resp normal respiratory effort, no retractions, no use of accessory muscles and clear to auscultation bilaterally Auscultation: Negative for rales, rhonchi or wheezes Cardio S1 normal heart sound, S2 normal heart sound, no murmurs, no rub and no gallops Cardio Narrative: Heart rate and rhythm is irregular GI normal to inspection, nondistended, normoactive bowel sounds, soft to palpation, non-tender and non-distended Extremity no clubbing, cyanosis or edema Skin no rashes or lesions noted General Skin Exam: no breakdown Neuro oriented x3, CN's II-XII intact bilaterally, moves all extremities, no focal motor deficits and no sensory deficits noted Sensorium / Orientation: awake and alert Speech: speech normal Psych affect normal Assessment & Plan Assessment/Plan (1) Heart failure with reduced ejection fraction: PLAN: Plan 1. Acute systolic congestive heart failure-patient will remain on his current medications as adjusted by cardiology, patient is currently on no supplemental oxygen. #2 atrial fibrillation with rapid ventricular rate-patient's medications will be adjusted by cardiology, patient's beta-fawad was increased today and he was placed on amiodarone. #3 hyponatremia-etiology unclear, labs will be monitored #4 rate related cardiomyopathy-cardiology will continue to adjust rate limiting medications. #5 essential hypertension-patient is on metoprolol currently and losartan as well as Lasix #6 chronic kidney disease stage IIIa-BMP will be rechecked tomorrow Total clinical time spent by myself addressing patient's medical issues, reviewing all of his data, and collaborating with patient's care team: 35 minutes Charges/Coding Visit Charges Inpatient E&M: 58391 Subs Hosp L2
[2024-02-17] MEDS: Budesonide Respules 0.5 MG/2 ML AMPUL.NEB. INHALATION (19:30)
[2024-02-17] MEDS: Atorvastatin Calcium 10 MG Tablet PO (21:28)
[2024-02-17 21:52] LABS: Bedside Glucose 121 mg/dL (74-106)
[2024-02-18 04:36] VITALS: BMI 35.7
[2024-02-18 05:59] LABS: Anion Gap 9 (5-15); BUN 37 mg/dL (7-18); BUN/Creat Ratio 21.5 RATIO (10-20); Chloride 100 mmol/L (98-107); Creatinine, Serum 1.72 mg/dL (0.70-1.30); EST Glomerular Filtration Rate 41 mL/min (>60); Est Glom Filt Rate - Afr Amer 50 mL/min (>60); Estimated Creatinine Clearance 46.73 ml/min; Glucose 112 mg/dL (74-106); Sodium Level 131 mmol/L (136-145)
[2024-02-18 06:17] VITALS: BP 115/98; PULSE 104; RESP 18; TEMP 36.1; O2SAT 95
[2024-02-18 06:20] VITALS: BP 115/98; PULSE 104
[2024-02-18] MEDS: Metoprolol Tartrate 100 MG Tablet PO (06:20)
[2024-02-18 06:45] LABS: Bedside Glucose 101 mg/dL (74-106)
[2024-02-18] MEDS: Budesonide Respules 0.5 MG/2 ML AMPUL.NEB. INHALATION (07:31)
[2024-02-18 07:32] VITALS: PULSE 62; RESP 18; O2SAT 97
[2024-02-18 09:00] VITALS: BP 98/68; PULSE 103; RESP 18; TEMP 36.4; O2SAT 97
[2024-02-18] MEDS: Multivitamins,Ther W-Minerals Tablet 1 TABLET PO (09:47)
[2024-02-18] MEDS: APIXABAN 5 MG TABLET PO (09:48)
[2024-02-18] MEDS: Losartan Potassium 50 MG Tablet PO (09:48)
[2024-02-18] MEDS: Docusate Sodium 100 MG Capsule PO (09:48)
[2024-02-18] MEDS: Allopurinol 300 MG Tablet PO (09:48)
[2024-02-18] MEDS: Folic Acid 1 MG Tablet PO (09:48)
--- NOTE | 2024-02-18 09:50 | PCM.PN.CARD ---
Subjective Subjective Patient reports that he is feeling pretty much back to baseline, denies any shortness of breath. His urine output has improved significantly over what it was in his home environment prior to admission. It is still not back to the flow that he had back in late summer early fall prior to December. 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 The patient continues to have some edema in his lower extremities but it is improving. He has his compression socks on today. Patient's heart rate went down as low as 60 but has also been up in the 105 to 120 range over the last 24 hours. His sodium has continued to slowly improve is 131 this morning with his creatinine up at 1.72. Objective Data Vital Signs: Vital Signs Temp Pulse Resp BP Pulse Ox O2 Del Method 97.0 F L 62 18 115/98 H 97 Room Air 02/18/24 06:17 02/18/24 07:32 02/18/24 07:32 02/18/24 06:20 02/18/24 07:32 02/18/24 09:42 Oxygen Delivery Method Room Air Weight: 249 lb 5.485 oz Body Mass Index (BMI) 35.7 Intake & Output: Intake and Output for Last 24 Hours 02/16/24 02/17/24 02/18/24 23:59 23:59 23:59 Intake Total 1083.50 / 1083.50 900 / 1000 220 / 220 Output Total 2000 / 2450 2150 / 2150 Balance -916.50 / -1366.50 -1250 / -1150 220 / 220 Lab / Micro Data Attestation: I reviewed the patient's lab results. 02/16/24 07:26 02/18/24 05:15 Labs: Laboratory Results - last 24 hr 02/17/24 12:26: POC Glucose 105 02/17/24 16:51: POC Glucose 121 H 02/17/24 21:26: POC Glucose 121 H 02/18/24 05:15: Sodium 131 L, Potassium 4.0, Chloride 100, Carbon Dioxide 22.0, Anion Gap 9, BUN 37 H, Creatinine 1.72 H, Estim Creat Clear Calc 46.73, Est GFR (MDRD) Af Amer 50 L, Est GFR (MDRD) Non-Af 41 L, BUN/Creatinine Ratio 21.5 H, Glucose 112 H, Calcium 9.0 02/18/24 06:16: POC Glucose 101 Rhythm Strip Rhythm Strip: A-fib Rate: 85 Ectopy: PVC(s) Cardiology Labs/Tests 02/18/24 05:15: Sodium 131 L, Potassium 4.0, Chloride 100, Carbon Dioxide 22.0, Anion Gap 9, BUN 37 H, Creatinine 1.72 H, Est GFR (MDRD) Af Amer 50 L, Est GFR (MDRD) Non-Af 41 L, BUN/Creatinine Ratio 21.5 H, Glucose 112 H, Calcium 9.0 Rhythm: EKG: ECHO: Stress Test: Cardiac Cath: PCI: CT Surgery: Holter monitor: EPS: PPM: CXR: Chest CT Scan: Physical Exam Const alert and oriented x3 HEENT normocephalic Eyes EOMs intact bilaterally Neck no JVD Neck Narrative: At 90 degrees seated in the chair. Chest inspection of chest normal Resp normal respiratory effort Auscultation: crackles left (Scant) base Cardio Rate: regular rate Rhythm: abnormal rhythm irregularly irregular Heart Sounds: S1 normal and S2 normal; Negative for click, gallop or murmur GI GI Narrative: Distended but nontender normal bowel sounds Extremity Extremity Narrative: Patient has compression socks bilaterally. General Extremity: edema right lower extremity moderate and left lower extremity mild Neuro Neuro Narrative: Alert and oriented x 3 Psych mental status grossly normal Assessment & Plan Assessment/Plan (1) Heart failure with reduced ejection fraction: PLAN: Patient's symptoms are resolving. He still has some abdominal distention and bilateral lower extremity edema right greater than the left. He is status post resection of lymph nodes in his right groin. Patient's heart rate is come under better control with a combination of metoprolol and amiodarone. He still has some episodes of heart rates up in the 120 range but he also has episodes when his heart rate is down in the 60s. His creatinine increased today up to 1.72. His I's and O's have been negative the last 3 days. He is down another liter from yesterday. I am concerned that he may be becoming intravascularly depleted. We will decrease his Lasix to 20 mg daily. The patient will have a basic metabolic panel done 02/22/2024 just prior to his office visit that day. See the plan before for detailed medical therapy plans. I reviewed these plans in detail with the patient and his today and went over this with his son yesterday. (2) Hyponatremia: PLAN: Patient's sodium is up to 131. In the baseline records his sodium is documented from 132 up to 135. I believe this is secondary to his heart failure. We will continue to monitor him in the ambulatory setting he is to have a BMP February 22, 2024. (3) Acute on chronic kidney failure: QUALIFIERS: Acute renal failure type: unspecified Chronic kidney disease stage: stage 3 (moderate) Chronic kidney disease stage 3 subtype: stage 3b (GFR 30-44) Qualified Code(s): N17.9 - Acute kidney failure, unspecified; N18.32 - Chronic kidney disease, stage 3b PLAN: As noted above his creatinine originally was 1.5 it went down slightly and is now back up slightly to 1.7. This probably represents intravascular hypovolemia as he still has peripheral edema. Will reduce his Lasix to 20 mg daily, we will reinstitute his home ARB therapy on discharge and will follow-up with us with a BMP and BNP February 21. (4) Atrial fibrillation with rapid ventricular response: PLAN: Patient remains in atrial fibrillation he was just instituted on amiodarone yesterday with a 400 mg twice daily initial loading dose. We will decrease that to 200 mg twice daily at discharge and will follow him up on February 21 and then again 3 to 4 weeks later. The patient has already ordered an iWatch which will be available in the next week or so. When he is in the office we will go over again utilization of the wearable to monitor his atrial fibrillation and heart rate. (5) Hypertension: QUALIFIERS: Hypertension type: primary hypertension Qualified Code(s): I10 - Essential (primary) hypertension PLAN: His blood pressure is well-controlled on his current medical therapy. This will be reevaluated once he is back on his Irbesartan in his home environment. PLAN: Plan 1. Will plan on discharge to home today. 2. Will continue metoprolol 100 mg twice daily at breakfast and suppertime. 3. Will continue amiodarone 200 mg twice daily at noon and bedtime. 4. Will decrease Lasix to 20 mg every morning. 5. Will DC the losartan and replace this with his home irbesartan 150 mg every morning to be given with his morning metoprolol dose, starting 02/19/2024. 6. Will defer adding spironolactone at this point in time due to his fluctuating creatinine. 7. Patient will weigh himself upon arrival at home and his usual morning attire. He will then weigh himself on a daily basis. 8. If the patient were to go up 3 pounds in 1 day he was instructed to take 40 mg of Lasix. 9. Patient is scheduled to see Dr. Bautista February 22, 2024. He is instructed to keep that visit and obtain blood work prior to the visit that same day. 10. Patient will obtain a basic metabolic panel and BNP on February 21 prior to the office visit. 11. An EKG will be done at the next office visit to reevaluate his rhythm. 12. We will follow his blood pressure and titrate his medical regiment accordingly. 13. The patient instructed not to drive until we have his rhythm more controlled due to the possibility of him spontaneously converting and having a prolonged pause. 14. Will evaluate the patient for possible direct-current cardioversion pending his response to medical therapy over the next 3 to 4 weeks. 15. Patient will continue Eliquis at 5 mg twice daily. He will also continue atorvastatin 10 mg daily. Charges/Coding Visit Charges Inpatient E&M: 30713 [facility] Hosp L3
[2024-02-18] MEDS: Furosemide 40 MG Tablet PO (09:57)
--- NOTE | 2024-02-18 10:19 | DCINST_ITS ---
Discharge Instructions Diet Discharge Diet: 1800 Calorie Control Diet DC O2, CPAP, BIPAP needs Home O2 Discharge instructions: No Dressing / Incision Discharge Activity: Return to Normal Activity Weight Bearing Status: Full weight bearing Follow Up Care Test Results: Test results from this visit will be discussed in further detail at your follow- up appointment, if applicable. Discharge Plan Admission Admit Date/Time: 02/15/24 15:41 Primary Reason for Your Visit: Congestive heart failure, atrial fib with RVR Attending Provider: Maxime Smiley Primary Care Provider: Pérez Marx Consulting Providers: Marquis Bautista; Leeann Garza Instructions Additional Instructions / Restrictions: I recommend you stop your usage of fish oil, it is not absorbed and will not benefit you Discharge Orders/Prescriptions Prescriptions: New metoprolol tartrate 100 mg Tablet 100 mg PO BID@0600,1800 Qty: 60 0RF amiodarone 200 mg Tablet 200 mg PO BID@1200,2200 Qty: 60 0RF docusate sodium 100 mg Capsule 100 mg PO BID Qty: 0 0RF furosemide 20 mg Tablet 20 mg PO DAILY Qty: 30 0RF Continued ipratropium bromide 21 mcg (0.03 %) spray,non-aerosol 2 spray intranasal .q6hr PRN (Reason: allergy symptoms) albuterol sulfate 90 mcg/actuation HFA aerosol inhaler 2 puff inhalation Q4-6H PRN (Reason: shortness of breath or wheezing) lutein-zeaxanthin 40-1,600 mg-mcg capsule 1 cap PO DAILY Eliquis 5 mg tablet 5 mg PO BID calcium carbonate [Caltrate 600] 600 MG tablet 600 mg PO DAILY@0800 coenzyme Q10 [Co Q-10] 100 MG capsule 60 mg PO DAILY metformin 500 mg Tablet 500 mg PO BID atorvastatin 10 mg Tablet 10 mg PO QHS allopurinol 300 mg Tablet 300 mg PO DAILY clindamycin HCl [Cleocin HCl] 300 MG capsule 300 mg PO PRN PRN (Reason: DENTAL WORK) irbesartan 150 mg tablet 150 mg PO DAILY Discontinued omega 6-ebz-xif-fish oil [Fish Oil] 300-1,000 mg capsule 1 cap PO QDAY metoprolol succinate 25 mg tablet extended release 24 hr 25 mg PO DAILY Referrals / Follow Up: Pérez Marx MD [Primary Care Provider] - Within 1 Month Marquis Bautista MD [Med Staff - Active Staff] - See Referral Note (This week) Disposition Disposition (needs filled in before D/C Order can be placed): Home, Self Care
--- NOTE | 2024-02-18 10:27 | DS.PCM_ITS ---
Providers Date of Admission: 02/15/24 Date of Discharge: 02/18/24 Primary Care Physician: Dr. Pérez Marx MD Consultations 02/15/24 15:29 Consult: Cardiology Routine Consulting Provider: Marquis Bautista Reason for Consult: atrial fibrillation with rapid ventricular response EMERGENT Consult: Yes Notified: Yes Date Notified: 02/15/24 Time Notified: 15:29 Method of Notification: ED Physician Initiated 02/15/24 17:34 Consult: Cardiology Routine Consulting Provider: Marquis Bautista Reason for Consult: PAF with RVR, suspect associated overload EMERGENT Consult: No Notified: Yes Date Notified: 02/15/24 Time Notified: 15:43 Method of Notification: ED Physician Initiated Reason For Visit: PAF RVR Diagnosis Discharge Diagnosis (1) Heart failure with reduced ejection fraction: Status: Acute Code(s): I50.20 - Unspecified systolic (congestive) heart failure (2) Hyponatremia: Status: Acute Code(s): E87.1 - Hypo-osmolality and hyponatremia (3) Acute on chronic kidney failure: Status: Chronic Code(s): N17.9 - Acute kidney failure, unspecified; N18.9 - Chronic kidney disease, unspecified Qualifiers: Acute renal failure type: unspecified Chronic kidney disease stage: s tage 3 (moderate) Chronic kidney disease stage 3 subtype: stage 3b (GFR 30-44) Qualified Code(s): N17.9 - Acute kidney failure, unspecified; N18.32 - Chronic kidney disease, stage 3b (4) Atrial fibrillation with rapid ventricular response: Status: Acute Code(s): I48.91 - Unspecified atrial fibrillation (5) Hypertension: Status: Chronic Code(s): I10 - Essential (primary) hypertension Qualifiers: Hypertension type: primary hypertension Qualified Code(s): I10 - Essential (primary) hypertension Plan 1. Acute systolic congestive heart failure-patient will remain on his current medications as adjusted by cardiology, patient is currently on no supplemental oxygen. #2 atrial fibrillation with rapid ventricular rate-patient's medications will be adjusted by cardiology, patient's beta-fawad was increased today and he was placed on amiodarone. #3 hyponatremia-etiology unclear, labs will be monitored #4 rate related cardiomyopathy-cardiology will continue to adjust rate limiting medications. #5 essential hypertension-patient is on metoprolol currently and losartan as well as Lasix #6 chronic kidney disease stage IIIa-BMP will be rechecked tomorrow Total clinical time spent by myself addressing patient's medical issues, reviewing all of his data, and collaborating with patient's care team: 35 minutes Medications at Discharge Home Medications calcium carbonate (Caltrate 600) 600 mg PO DAILY@0800 supplement 01/14/13 coenzyme Q10 100 mg capsule (Co Q-10) 60 mg PO DAILY supplement 01/14/13 allopurinol 300 mg tablet 300 mg PO DAILY gout 02/03/21 atorvastatin 10 mg tablet 10 mg PO QHS cholesterol 02/03/21 clindamycin HCl 300 mg capsule (Cleocin HCl) 300 mg PO PRN PRN DENTAL WORK 02/03/21 metformin 500 mg tablet 500 mg PO BID elevated triglycerides 02/03/21 albuterol sulfate 90 mcg/actuation aerosol inhaler 2 puff inhalation Q4-6H PRN shortness of breath or wheezing 02/08/24 apixaban 5 mg tablet (Eliquis) 5 mg PO BID blood thinner 02/08/24 ipratropium bromide 21 mcg (0.03 %) nasal spray 2 spray intranasal .q6hr PRN allergy symptoms 02/08/24 lutein 40 mg-zeaxanthin 1,600 mcg capsule 1 cap PO DAILY visison 02/08/24 irbesartan 150 mg tablet 150 mg PO DAILY blood pressure 02/15/24 amiodarone 200 mg tablet 200 mg PO BID@1200,2200 #60 tabs 02/18/24 docusate sodium 100 mg capsule 100 mg PO BID #0 caps 02/18/24 metoprolol tartrate 100 mg tablet 100 mg PO BID@0600,1800 #60 tabs 02/18/24 furosemide 20 mg tablet 20 mg PO ONCE #30 tabs 02/22/24 Hospital Course Operations None Procedures 2-D Echocardiogram Summary of Care Provided Minutes Spent on Discharge: 32 Hospital Course: This 73-year-old white male was seen in the emergency room at [facility] with a chief complaint of palpitations, patient had initially been diagnosed with atrial fibrillation and started on Eliquis in January 2024, he complained of bilateral lower extremity swelling and shortness of breath. Patient had an echocardiogram and was told to go to the ER for evaluation after the hydrographical technical officer completed his study. Workup in the emergency room included an EKG which showed atrial fibrillation at a rate of [address] changes, cardiac enzymes were unremarkable, he was given 10 mg of Cardizem intravenously which slowed his heart rate. Chemistry panel was remarkable for a sodium of 127-this appears to be chronic in nature, BUN was 32 and creatinine was 1.67. BNP was elevated at 434 chest x-ray did not show an infiltrate or obvious CHF. Patient was admitted to PCU and seen by cardiology, echocardiogram showed a reduced ejection fraction of 35%-cardiology felt this was a rate related cardiomyopathy. Patient was given additional medications to slow his rate and he was also felt to be in CHF and was diuresed. On 02/18/2024, patient was seen and examined: On examination he appeared in good health and spirits. Vital signs as documented. Skin warm and dry and without overt rashes. Neck without JVD, neck was supple, trachea midline, thyroid was normal. Lungs clear bilaterally, normal air movement was noted. Heart exam notable for irregular rhythm, normal sounds and absence of murmurs, rubs or gallops. Abdomen unremarkable and without evidence of organomegaly, masses, or abdominal aortic enlargement. Bowel sounds are present, abdomen is not distended. Extremities nonedematous, no cyanosis was noted, no clubbing was noted. Neuro: Cranial nerves II through XII are grossly intact, no focal motor deficits were noted, sensation to light touch and pinprick intact, motor exam 5/5 throughout. Psych: Patient is alert and oriented x3, he does not appear anxious or depressed, he does not appear agitated. Patient was discharged home in stable condition on 02/18/2024 Weight / BMI Weight Weight: 113.1 kg Body Mass Index (BMI) 35.7 ABG / Lab / Microbiology Data 02/16/24 07:26 02/18/24 05:15 Laboratory: Laboratory Results - last 24 hr 02/17/24 12:26: POC Glucose 105 02/17/24 16:51: POC Glucose 121 H 02/17/24 21:26: POC Glucose 121 H 02/18/24 05:15: Sodium 131 L, Potassium 4.0, Chloride 100, Carbon Dioxide 22.0, Anion Gap 9, BUN 37 H, Creatinine 1.72 H, Estim Creat Clear Calc 46.73, Est GFR (MDRD) Af Amer 50 L, Est GFR (MDRD) Non-Af 41 L, BUN/Creatinine Ratio 21.5 H, G lucose 112 H, Calcium 9.0 02/18/24 06:16: POC Glucose 101 D/C Instructions Discharge Diet: 1800 Calorie Control Diet Weight Bearing Status: Full weight bearing DC O2, CPAP, BIPAP Needs Home O2 Discharge instructions: No Meaningful Use Info Meaningful Use Meaningful Use Diagnoses (Choose all that apply): CHF CHF ABRAHAM/ARB ordered at discharge?: Yes Documented LVEF (%): 35 Ischemic Stroke Statin Dosing Therapy Reference: STATIN DOSE THERAPY REFERENCE: * Patients > 75 years receive moderate or high dose statin therapy. * Patients 75 years or YOUNGER should receive HIGH intensity statin dose unless contraindicated. You will be required to document reason for non-treatment if statin daily dose does not meet guidelines. HIGH DOSE STATIN THERAPY DAILY Atorvastatin > than or = to 40 mg Rosuvastatin > than or = to 20 mg Amlodipine + Atorvastatin > than or = to 2.5/40 mg Ezetimibe + Simvastatin 10/80 mg Simvastatin 80mg Discharge Plan Admission Admit Date/Time: 02/15/24 15:41 Primary Reason for Your Visit: Congestive heart failure, atrial fib with RVR Attending Provider: Maxime Smiley Primary Care Provider: Pérez Marx Consulting Providers: Marquis Bautista; Leeann Garza Instructions Additional Instructions / Restrictions: I recommend you stop your usage of fish oil, it is not absorbed and will not benefit you Discharge Orders/Prescriptions Prescriptions: New metoprolol tartrate 100 mg Tablet 100 mg PO BID@0600,1800 Qty: 60 0RF amiodarone 200 mg Tablet 200 mg PO BID@1200,2200 Qty: 60 0RF docusate sodium 100 mg Capsule 100 mg PO BID Qty: 0 0RF Continued ipratropium bromide 21 mcg (0.03 %) spray,non-aerosol 2 spray intranasal .q6hr PRN (Reason: allergy symptoms) albuterol sulfate 90 mcg/actuation HFA aerosol inhaler 2 puff inhalation Q4-6H PRN (Reason: shortness of breath or wheezing) lutein-zeaxanthin 40-1,600 mg-mcg capsule 1 cap PO DAILY Eliquis 5 mg tablet 5 mg PO BID calcium carbonate [Caltrate 600] 600 MG tablet 600 mg PO DAILY@0800 coenzyme Q10 [Co Q-10] 100 MG capsule 60 mg PO DAILY metformin 500 mg Tablet 500 mg PO BID atorvastatin 10 mg Tablet 10 mg PO QHS allopurinol 300 mg Tablet 300 mg PO DAILY clindamycin HCl [Cleocin HCl] 300 MG capsule 300 mg PO PRN PRN (Reason: DENTAL WORK) irbesartan 150 mg tablet 150 mg PO DAILY Discontinued omega 0-ybk-hyi-fish oil [Fish Oil] 300-1,000 mg capsule 1 cap PO QDAY metoprolol succinate 25 mg tablet extended release 24 hr 25 mg PO DAILY No Action furosemide 20 mg tablet 20 mg PO ONCE Qty: 30 11RF Rx Instructions: Once daily as needed weight gain Referrals / Follow Up: Pérez Marx MD [Primary Care Provider] - Within 1 Month Marquis Bautista MD [Med Staff - Active Staff] - See Referral Note (This week) Disposition Disposition (needs filled in before D/C Order can be placed): Home, Self Care Charges/Coding Visit Charges Inpatient E&M: 56991 Disch Hosp >30min
[2024-02-18 11:09] VITALS: BP 106/70; PULSE 102
== END 2024-02-18 11:28 | disposition home or self-care (01) | DRG 308 ==
LOC: ED 15:49 → PCU 17:08
PROVIDERS: Internal Medicine Cardiovascular Disease; Admitting Provider Family Medicine; Emergency Provider Emergency Medicine; PCP Family Medicine; Referring Provider Emergency Medicine; Visit Provider Internal Medicine
DX: I48.0 Paroxysmal atrial fibrillation (principal); I50.21 Acute systolic (congestive) heart failure; E87.1 Hypo-osmolality and hyponatremia; N17.9 Acute kidney failure, unspecified; I13.0 Hypertensive heart and chronic kidney disease with heart failure and stage 1 through stage 4 chronic kidney disease, or unspecified chronic kidney disease; D69.6 Thrombocytopenia, unspecified; J44.9 Chronic obstructive pulmonary disease, unspecified; E11.22 Type 2 diabetes mellitus with diabetic chronic kidney disease; N18.32 Chronic kidney disease, stage 3b; E66.9 Obesity, unspecified; I42.9 Cardiomyopathy, unspecified; M10.9 Gout, unspecified; E87.8 Other disorders of electrolyte and fluid balance, not elsewhere classified; E78.5 Hyperlipidemia, unspecified; Z87.891 Personal history of nicotine dependence; Z79.84 Long term (current) use of oral hypoglycemic drugs; R79.89 Other specified abnormal findings of blood chemistry; Z85.46 Personal history of malignant neoplasm of prostate
CPT/HCPCS: 36415; 71045; 80048; 80053; 80061; 82962; 83735; 83880; 84100; 84443; 84484; 85025; 93005; 93306; 93308; 94640; 94668; 97802; 99285; A4216; J1940

== ENCOUNTER → 2024-02-15 | Outpatient (CLI) | payer MEDICARE, OTHER, SELFPAY ==
--- NOTE | 2024-02-15 12:42 | ECHOD_ITS ---
Reason For Study: Afib Procedure This was a 2D Doppler, Color Flow transthoracic echocardiogram. Technically difficult study due to rhythm and rate. Exam performed in department. Left Ventricle Normal LV size. The estimated ejection fraction is 35 %. There is evidence of diastolic dysfunction. There is moderate global hypokinesis of the left ventricle. Right Ventricle Normal RV size. Normal systolic function. Atria There is mild biatrial dilatation. No doppler evidence for ASD. Mitral Valve There is no mitral valve stenosis. Mild-Moderate (1-2+) mitral valve insufficiency. Tricuspid Valve There is no tricuspid stenosis. Mild tricuspid valve insufficiency. Pulmonary artery systolic pressure is 30-35 mmHg. Aortic Valve Trisinus/trileaflet aortic valve. There is no aortic stenosis. No aortic valve insufficiency. Pulmonic Valve There is no pulmonic valvular stenosis. Trivial pulmonic valve insufficiency. Great Vessels Normal aortic root. Pericardium/Pleural No pericardial effusion. MMode/2D Measurements & Calculations LVIDd: 4.5 cm IVSd: 1.3 cm Ao root diam: 3.8 cm LVIDs: 4.0 cm LVPWd: 1.1 cm RVDd: 4.3 cm FS: 11.4 % LAV(MOD-bp): 100.7 ml LA A4 area: 31.5 cm2 RA A4 area: 32.1 cm2 LAV(MOD-bp) Indexed: 44.2 ml/m2 LAV(MOD-sp2): 89.0 ml LAV(MOD-sp4): 110.3 ml Doppler Measurements & Calculations MV E max constantin: 68.5 cm/sec MV V2 max: 69.4 cm/sec Ao V2 max: 73.8 cm/sec MV max P.9 mmHg Ao max P.2 mmHg MV V2 mean: 35.8 cm/sec MV mean P.67 mmHg MV V2 VTI: 11.2 cm LV V1 max: 46.9 cm/sec MR max constantin: 443.7 cm/sec TR max constantin: 262.2 cm/sec LV V1 max P.88 mmHg MR max P.7 mmHg TR max P.5 mmHg ECHO/Echo Complete Interpretation Summary The estimated ejection fraction is 35 %. There is moderate global hypokinesis of the left ventricle. There is evidence of diastolic dysfunction. Mild-Moderate (1-2+) mitral valve insufficiency. There is mild biatrial dilatation. Ordering Physician: Jodie Obrien Referring Physician: Pérez Marx MD Performed By: Jose Roberto Landa RCS
== END | disposition home or self-care (01) ==
LOC: CVS 12:40
PROVIDERS: PCP Family Medicine; Referring Provider Family Medicine; Visit Provider Family Medicine
DX: I48.91 Unspecified atrial fibrillation (principal); R60.0 Localized edema
CPT/HCPCS: 93306

== ENCOUNTER → 2024-02-22 | Outpatient (CLI) | payer MEDICARE, OTHER, SELFPAY ==
[2024-02-22 13:26] LABS: BNP,B-Type NATRIURETIC PEPTIDE 824.4 pg/mL (0-100)
[2024-02-22 13:38] LABS: Anion Gap 8 (5-15); BUN 64 mg/dL (7-18); BUN/Creat Ratio 25.2 RATIO (10-20); Calcium,Total 9.1 mg/dL (8.5-10.1); Chloride 102 mmol/L (98-107); Creatinine, Serum 2.54 mg/dL (0.70-1.30); EST Glomerular Filtration Rate 26 mL/min (>60); Est Glom Filt Rate - Afr Amer 32 mL/min (>60); Glucose 107 mg/dL (74-106); Potassium 4.4 mmol/L (3.5-5.1); Sodium Level 133 mmol/L (136-145)
== END | disposition home or self-care (01) ==
PROVIDERS: PCP Family Medicine; Referring Provider Internal Medicine Cardiovascular Disease; Visit Provider Internal Medicine Cardiovascular Disease
DX: I50.20 Unspecified systolic (congestive) heart failure (principal); I48.91 Unspecified atrial fibrillation
CPT/HCPCS: 36415; 80048; 83880

== ENCOUNTER → 2024-02-29 | Outpatient (CLI) | payer MEDICARE, OTHER, SELFPAY ==
[2024-02-29 13:31] LABS: Anion Gap 7 (5-15); BUN 44 mg/dL (7-18); BUN/Creat Ratio 21.2 RATIO (10-20); Calcium,Total 9.6 mg/dL (8.5-10.1); Chloride 105 mmol/L (98-107); Creatinine, Serum 2.08 mg/dL (0.70-1.30); EST Glomerular Filtration Rate 33 mL/min (>60); Est Glom Filt Rate - Afr Amer 40 mL/min (>60); Glucose 89 mg/dL (74-106); Potassium 4.6 mmol/L (3.5-5.1); Sodium Level 134 mmol/L (136-145)
== END | disposition home or self-care (01) ==
PROVIDERS: PCP Family Medicine; Referring Provider Internal Medicine Cardiovascular Disease; Visit Provider Internal Medicine Cardiovascular Disease
DX: I50.20 Unspecified systolic (congestive) heart failure (principal)
CPT/HCPCS: 36415; 80048

== ENCOUNTER → 2024-03-20 | Outpatient (CLI) | payer MEDICARE, OTHER, SELFPAY ==
[2024-03-20 15:38] LABS: Anion Gap 8 (5-15); BUN 33 mg/dL (7-18); BUN/Creat Ratio 14.6 RATIO (10-20); Calcium,Total 9.2 mg/dL (8.5-10.1); Chloride 102 mmol/L (98-107); Creatinine, Serum 2.26 mg/dL (0.70-1.30); EST Glomerular Filtration Rate 30 mL/min (>60); Est Glom Filt Rate - Afr Amer 37 mL/min (>60); Glucose 99 mg/dL (74-106); Sodium Level 135 mmol/L (136-145)
== END | disposition home or self-care (01) ==
LOC: LAB 13:29
PROVIDERS: PCP Family Medicine; Referring Provider Nurse Practitioner Family; Visit Provider Nurse Practitioner Family
DX: I50.20 Unspecified systolic (congestive) heart failure (principal); Z51.81 Encounter for therapeutic drug level monitoring; Z79.899 Other long term (current) drug therapy
CPT/HCPCS: 36415; 80048

== ENCOUNTER 2024-03-27 11:02 | Day surgery (SDC) | payer MEDICARE, OTHER, SELFPAY ==
[2024-03-13 09:37] LABS: Absolute Lymphocyte Count 1.71 X10^3/uL (0.83-4.51); Absolute Neutrophil Count 2.9 X10^3/uL (2.0-7.7); Basophil# 0.05 X10^3/uL; Basophil% 0.9 % (0-1); Eosinophil# 0.42 X10^3/uL; Eosinophils% 7.1 % (0-5); Hematocrit 38.9 % (40-54); Hemoglobin 12.6 g/dL (13.0-16.5); Lymphocyte # 1.71 X10^3/ul (0.83-4.51); Lymphocyte % 29.1 % (19-41); Mean Corp Hgb Conc 32.4 g/dL (32-36); Mean Corpuscular Hgb 33.1 pg (27.0-32.0); Mean Corpuscular Volume 102.1 fL (80-94); Mean Platelet Vol. 11.8 fl (6.2-12.0); Monocyte# 0.73 X10^3/uL; Monocyte% 12.4 % (0-10); NRBC Flagged by Analyzer 0 % (0-5); Neutrophil # 2.92 X10^3/uL (2.7-7.7); Neutrophil % 49.6 % (47-70); Platelet Count 109 K/mm3 (150-450); RBC Distribution Width CV 16.2 % (11.6-14.6); RBC Distribution Width SD 60.5 fl (35.1-43.9); Red Blood Count 3.81 M/mm3 (4.6-6.2); White Blood Count 5.9 K/mm3 (4.4-11.0)
[2024-03-13 10:20] LABS: BNP,B-Type NATRIURETIC PEPTIDE 1066.6 pg/mL (0-100)
[2024-03-13 10:25] LABS: AST(SGOT) 30 U/L (15-37); Alanine Aminotransfer ALT/SGPT 41 U/L (16-61); Alkaline Phosphatase 120 U/L (45-117); Anion Gap 8 (5-15); BUN 38 mg/dL (7-18); BUN/Creat Ratio 17.9 RATIO (10-20); Calcium,Total 9.5 mg/dL (8.5-10.1); Chloride 107 mmol/L (98-107); Cholesterol 97 mg/dL (200); Creatinine, Serum 2.12 mg/dL (0.70-1.30); EST Glomerular Filtration Rate 33 mL/min (>60); Est Glom Filt Rate - Afr Amer 39 mL/min (>60); Globulin 3.1 g/dL (2.2-4.2); Glucose 87 mg/dL (74-106); High Density Lipoprotein 39 mg/dL; Potassium 4.7 mmol/L (3.5-5.1); Protein, Total 6.1 g/dL (6.4-8.2); Sodium Level 135 mmol/L (136-145); Triglycerides 89 mg/dL; Very Low Density Lipoprotein 18 mg/dL (5-40)
[2024-03-26 09:41] VITALS: BMI 34.4
--- NOTE | 2024-03-26 15:49 | PCM.HP.BLA ---
History and Physical Date of Admission: 03/27/24 Patient is a 73-year-old white male that comes in today with his for cardioversion. The patient was discharged from the hospital on February 17, 2023 after being admitted with atrial fibrillation with a rapid ventricular response and heart failure. The patient originally developed symptoms of profound dyspnea on exertion on December 16, 2023. He does have a history of COPD and it was felt that that was probably his etiology at the time. However he was in [place] in [place] during Thanksgiving visiting with family and really could not do much of anything due to his shortness of breath. When he returned home he was evaluated in the primary care office and was diagnosed with atrial fibrillation with rapid ventricular response and early to mid January 2024. He was placed on metoprolol and Eliquis at the time and was scheduled to see us in the office. The patient over the holidays had progressive lower extremity edema and increasing abdominal girth he had to let his belt out to notches. He also was coughing constantly and having PND. The patient was admitted to the hospital where it was very difficult to control his rate he was in the 130-140 range most of the time. The combination of metoprolol 100 mg twice daily and amiodarone 200 mg twice daily was successful in controlling his rate into the 90 bpm range. The patient has been on Eliquis since January 17. He missed 1 dose on . The patient had a good diuresis when he was hospitalized on Lasix orally. His creatinine was 1.75 on the day of discharge. His creatinine had fluctuated from the 1.5-1.4 range up to 1.75. His Lasix was dropped back from 40 twice daily to 20 twice daily on discharge. And a basic metabolic panel done today 5 days later showed his creatinine of 2.5. His BUN is 65. He does have a history of chronic hyponatremia with sodiums running in the 131-134 range. He is 133 on today's exam with a potassium of 4.4, The patient and his both report that his lower extremity edema is markedly improved he is wearing compression hose at home. His cough is completely resolved but he still has some increasing abdominal girth. The patient has not noted an anxiety type reaction when he takes the amiodarone in the evening. It is making it difficult for him to sleep. He denies any shortness of breath with recumbency but noticed that he has an air hunger feeling when he takes the amiodarone in the evening but he does not seem to have this in the morning dose. The patient reports that he does have significant dyspnea on exertion he can go 10 or 15 steps with a normal activity level and then has to slow down and stop and rest. The plan is to titrate the patient's medical regiment and after 3 to 5 weeks to bring the patient in for an attempted direct-current cardioversion. If we can restore sinus rhythm we would then monitor his LV function for 6 to 12 weeks and reevaluate a limited echo. The patient's echocardiogram done 02/15/2024 showed global LV systolic dysfunction with an EF of 35% the RV was normal there was mild biatrial enlargement 1-2+ mitral regurgitation no stenosis no tricuspid stenosis and mild tricuspid insufficiency pulmonary artery systolic pressure estimated 30-35 mmHg there was no significant aortic pathology. Intake Vital Signs: See EMR Intake Visit Reasons: DCCV Is patient in pain?: No Allergies Penicillins Allergy (Verified 02/22/24 13:36) Swelling Medications: See EMR Ejection fraction %: 35 Have you fallen in the past year?: Yes PFSH Medical History COPD (chronic obstructive pulmonary disease) Atrial fibrillation Palpitations Gouty arthropathy Erectile dysfunction Essential tremor Lymphedema of leg Hyperlipidemia Loss of hearing Wears glasses Cancer Alcohol use Diabetes Arthritis Prostate disease High cholesterol Back pain Asthma Former smoker History of edema History of stress test Hypertension Surgical History History of prostatectomy Hx of appendectomy Hx of lymph node excision Hx of total knee arthroplasty Family History Brother , GI bleed No problems noted. Mother Sudden cardiac deathFather Hypertension Dementia Carotid artery diseaseGrandfather Cancer Social History household members: spouse Smoking Status: Former smoker alcohol intake: current alcohol intake frequency: 3 or more drinks per day Alcohol type: beer and hard liquor details: Notes shot vodka daily as well as 2 beers daily. substance use type: does not use ROS Const Const: Positive for fatigue and weakness ENT ENT: Negative for dizziness or balance problems Cardio Chest Pain: No Palpitations: No Edema: None Muscle aches with walking: None Resp Respiratory: Positive for SOB with activity; Negative for SOB at rest or SOB orthopnea\SOB lying down GI GI: Negative nausea, vomiting or heartburn Musc Musc: Negative for muscle weakness or balance problems Neuro Neuro: Positive for lightheadedness and weakness; Negative for dizziness, near syncope or syncope Endo Endo: Positive for fatigue Cardiology Exam Const Appearance: cooperative, comfortable and no acute distress Nutritional Appearance: obese Patient was examined in a wheelchair as he does have problems walking distances. Head Head: normal to inspection Eyes General: appearance normal, both eyes and all related structures Neck Neck: normal visual inspection JVD: +5 Chest Chest inspection: normal inspection of the chest Auscultation: Bilateral: Diminished Lung Sounds Cardio Rate: regular rate Rhythm: irregularly irregular Heart sounds: S1 normal and S2 normal; Negative rub, gallop or murmur Very distant heart tones GI GI: obese Neuro General: patient alert and patient oriented x3 Extremities Lower Extremity Edema: +2: Bilateral Psych Psychological: normal affect Supplemental Info Assessment and Plan Assessment and Plan (1) Heart failure with reduced ejection fraction: Status: Acute Plan: Patient is EF known to be in the 35% range with global LV systolic dysfunction and mild biatrial enlargement. As best I can put the chronological events in order it appears he may have been gone into atrial fibrillation around December night when he had this sudden onset of dyspnea on exertion and subsequently has developed a cardiomyopathy from the rapid tachycardia. His heart rate was in the 1 30-1 40 range when he was hospitalized. We have been able to get the heart rate under control but now his renal function has deteriorated to a creatinine of 2.5 today. His weight is down to 240 pounds from 250. It does appear from his BUN/creatinine ratio that he may be intravascularly depleted. His lower extremity edema has markedly improved by the my exam and the patient and 's observations. He will continue to use his compression hose. I would recommend that we back off the Lasix and actually stop it today if his weight goes up to 242?243 he should take his Lasix. Will continue the Irbesartn and the metoprolol to 100 mg twice daily. I would recommend that we decrease the amiodarone given his side effects that he is having with the evening dose. We will drop that down to amiodarone 200 mg daily. Will reevaluate a basic metabolic panel in 1 week. Will also plan on direct-current cardioversion on March 27. We will check labs just prior to that as well. The cardioversion procedure risk/benefit and alternatives were explained to the patient and his in detail they voiced understanding and agreed to proceed. (2) Atrial fibrillation with rapid ventricular response: Status: Acute Plan: Patient remains in atrial fibrillation on EKG today. QT interval is normal heart rate average 85 he does have a right bundle branch block which is chronic. The rate is well-controlled I would recommend we back off the amiodarone as noted above to 200 mg daily. Will plan on direct-current cardioversion on March 27, 2024. (3) Hyponatremia: Status: Acute Plan: Patient's sodium is 133 that is about his baseline normally runs in the 131-134 range. Will continue to monitor this closely he will have a basic metabolic panel done in 1 week. We had decreased his Lasix and will make it as needed for a weight gain. If his weight gets to 242-243 pounds he should repeat start his Lasix. (4) Acute on chronic kidney failure: Status: Chronic Qualifiers: Acute renal failure type: unspecified Chronic kidney disease stage: stage 3 (moderate) Chronic kidney disease stage 3 subtype: stage 3b (GFR 30-44) Qualified Code(s): N17.9 - Acute kidney failure, unspecified; N18.32 - Chronic kidney disease, stage 3b Plan: Patient's renal function was variable when he was hospitalized when he first came in it was in the 1.7 range and went down to 1.4 and then back up in the 1.7 range. He is now 2.5 having been on Lasix and his weight is down 10 pounds. His edema has also markedly improved but it is still present. The patient does have a history of diabetes he is on metformin and irbesartan. He is not on spironolactone due to the inconsistent creatinine fluctuations. (5) Hypertension: Status: Chronic Qualifiers: Hypertension type: primary hypertension Qualified Code(s): I10 - Essential (primary) hypertension Comment: MOSTLY CONTROLLED WITH MEDS PER PATIENT Plan: Patient's blood pressure is well-controlled. He will continue his current medical therapy as noted above. Plan 1. Will plan for direct-current cardioversion March 27, 2024. 2. Once we have restored sinus rhythm would recommend 6 to 12 weeks of guideline directed medical therapy for LV recovery and then repeat a limited echo. 3. Patient be follow-up in the office 1 week after direct-current cardioversion. 4. If patient not successfully cardioverted would consider referral to heart failure specialist and/or EP for possible radiofrequency ablation and/or ICD evaluation. Plan Details Additional Comments: Thank you for allowing me to participate in the care of your patient. Please don't hesitate to call if any issues arise. This note was generated using a voice recognition system and there may be incorrect words, spelling, or punctuation that were not noted when reviewing the office note prior to saving. Portions of this documentation were copied and pasted from previous office visit notes to provide a cohesive continuity of the history. The note has been reviewed, edited, and updated, as necessary.
--- NOTE | 2024-03-27 12:57 | CARDIOVERS_ITS ---
Cardioversion Cardioversion: Patient 73-year-old white male with a history of paroxysmal atrial fibrillation. Patient originally presented in February early February 2024. He had been complaining of some dyspnea on exertion since around . That had become progressively more prominent with increasing fatigability. He was barbie gnosed with atrial fibrillation and a dilated nonischemic appearing cardiomyopathy with an EF of 35%. The patient had been on Eliquis since January 2024. He has not missed any doses. He was evaluated in the hospital February 14, 2024 and at that time was placed on amiodarone due to low blood pressures. He was loaded with amiodarone but did not convert to sinus rhythm. The patient is now brought back after being fully loaded with amiodarone and on Eliquis since january. After informed consent which was given when the patient was evaluated in the office the patient was brought into the cath prep and recovery area. Anesthesia was administered by Dr. Charly Bullard with etomidate and after appropriate anesthesia a single synchronized 200 J shock was delivered. The patient converted to normal sinus rhythm with a first-degree AV block and a chronic right bundle branch block on his EKG. His heart rate was 65 bpm after the cardioversion. The patient awoke with no obvious focal neurologic deficits. We went over follow-up arrangements with he and his together. Patient tolerated the procedure without incident. Procedures Coronary Therapeutic CF Procedures [id number]: [id number] Cardioversion electric ext
--- NOTE | 2024-03-27 13:09 | PCM.OP.PRO2 ---
Procedures Pulmonary Pulmonary Procedures /Diagnostic Testin Con Sedation Non-invasive Procedural Procedure Information Description of procedure: CONSCIOUS SEDATION REPORT DATE OF SERVICE: March 27, 2024 BRIEF HISTORY OF PRESENT ILLNESS: The patient is a 73-year-old male who presented to [facility] to undergo an elective outpatient cardioversion due to atrial fibrillation. The patient has never previously undergone a cardioversion. He is systemically anticoagulated on Eliquis, without any recent missed doses. His last surface echocardiogram demonstrated an ejection fraction of 35 to 40%. The patient does have a self-reported history of mild COPD and prior tobacco dependency. He denied any prior anesthetic complications. PHYSICAL EXAMINATION: VITAL SIGNS: Reviewed and were acceptable. GENERAL: The patient is a male, in no apparent distress, speaking in full sentences. HEENT: Normocephalic, atraumatic. Mucous membranes are moist and pink. Good mouth opening noted. Trachea is midline. Good neck mobility. CHEST: S1, S2 irregularly irregular. No murmurs, rubs or gallops were noted. LUNGS: Clear to auscultation bilaterally without appreciable wheezes, rales or rhonchi. ABDOMEN: Soft, nontender, nondistended. Positive bowel sounds. EXTREMITIES: There is no clubbing, cyanosis or edema. ASA Class: II DESCRIPTION OF PROCEDURE: After confirmation of informed consent, the patient's anesthesia plan was reviewed in detail. Etomidate was chosen. Risks and benefits were reviewed and the patient agreed to proceed. At 1234, the patient was given his first bolus of etomidate. In total, the patient required 8 mg of etomidate throughout the entire procedure to facilitate a 200 joule synchronized cardioversion by Dr. Bautista at the bedside. This was successful in achieving normal sinus rhythm. The patient was monitored until 1247, at which time he reached his baseline mental status and function. The patient tolerated the procedure well. COMPLICATIONS: None ESTIMATED BLOOD LOSS: None RECOMMENDATIONS: Okay to recover in usual fashion.
== END 2024-03-27 13:38 | disposition home or self-care (01) ==
PROVIDERS: Nurse Practitioner Family; PCP Family Medicine; Referring Provider Internal Medicine Cardiovascular Disease; Visit Provider Internal Medicine Cardiovascular Disease
DX: I48.91 Unspecified atrial fibrillation (principal); I11.0 Hypertensive heart disease with heart failure; I50.21 Acute systolic (congestive) heart failure; J44.9 Chronic obstructive pulmonary disease, unspecified; E11.22 Type 2 diabetes mellitus with diabetic chronic kidney disease; N18.32 Chronic kidney disease, stage 3b; E87.1 Hypo-osmolality and hyponatremia; Z79.01 Long term (current) use of anticoagulants; E78.00 Pure hypercholesterolemia, unspecified; Z87.891 Personal history of nicotine dependence; E66.9 Obesity, unspecified; Z79.899 Other long term (current) drug therapy
CPT/HCPCS: 36415; 80053; 80061; 83880; 85025; 92960; 93005

== ENCOUNTER → 2024-04-05 | Outpatient (CLI) | payer MEDICARE, OTHER, SELFPAY ==
[2024-04-05 15:42] LABS: Absolute Lymphocyte Count 2.33 X10^3/uL (0.83-4.51); Absolute Neutrophil Count 2.7 X10^3/uL (2.0-7.7); Basophil# 0.06 X10^3/uL; Basophil% 0.9 % (0-1); Eosinophil# 0.78 X10^3/uL; Eosinophils% 11.3 % (0-5); Hematocrit 38.7 % (40-54); Hemoglobin 12.9 g/dL (13.0-16.5); Lymphocyte # 2.33 X10^3/ul (0.83-4.51); Lymphocyte % 33.8 % (19-41); Mean Corp Hgb Conc 33.3 g/dL (32-36); Mean Corpuscular Hgb 33.1 pg (27.0-32.0); Mean Corpuscular Volume 99.2 fL (80-94); Mean Platelet Vol. 10.7 fl (6.2-12.0); Monocyte# 0.92 X10^3/uL; Monocyte% 13.4 % (0-10); NRBC Flagged by Analyzer 0 % (0-5); Neutrophil # 2.72 X10^3/uL (2.7-7.7); Neutrophil % 39.4 % (47-70); Platelet Count 111 K/mm3 (150-450); RBC Distribution Width CV 16.7 % (11.6-14.6); RBC Distribution Width SD 59.7 fl (35.1-43.9); White Blood Count 6.9 K/mm3 (4.4-11.0)
[2024-04-05 19:16] LABS: ALB/GLOB Ratio 1.4 RATIO (0.9-2.4); AST(SGOT) 24 U/L (<=37); Alanine Aminotransfer ALT/SGPT 17 U/L (<=46); Albumin, Serum 3.7 g/dL (3.4-4.8); Alkaline Phosphatase 125 U/L (40-129); Anion Gap 15 (5-15); BUN 21 mg/dL (4-19); Calcium 9.6 mg/dL (7.6-11.0); Carbon Dioxide 20.3 mmol/L (22.0-29.0); Chloride 100 mmol/L (96-108); Creatinine, Serum 1.65 mg/dL (0.70-1.20); EST Glomerular Filtration Rate 43 (>60); Globulin 2.6 g/dL (2.2-4.2); Glucose 103 mg/dL (70-99); Magnesium 1.8 mg/dL (1.5-2.2); Potassium 4.4 mmol/L (3.3-5.1); Protein, Total 6.3 g/dL (5.9-8.4); Sodium Level 135 mmol/L (133-145); Total Bilirubin 0.91 mg/dL (0.00-1.30); Vitamin D,25 Hydroxy 18.6 ng/mL (30-100)
== END | disposition home or self-care (01) ==
LOC: MFPLAB 11:52
PROVIDERS: PCP Family Medicine; Referring Provider Family Medicine; Visit Provider Family Medicine
DX: I50.9 Heart failure, unspecified (principal); I48.91 Unspecified atrial fibrillation; N18.32 Chronic kidney disease, stage 3b
CPT/HCPCS: 36415; 80053; 82306; 83735; 84443; 85025

== ENCOUNTER → 2024-06-05 | Outpatient (CLI) | payer MEDICARE, OTHER, SELFPAY ==
[2024-06-05 16:10] LABS: Anion Gap 12 (5-15); BUN 39 mg/dL (4-19); BUN/Creat Ratio 22.5 RATIO (10-20); Calcium,Total 10.4 mg/dL (7.6-11.0); Carbon Dioxide 24.4 mmol/L (21.0-32.0); Chloride 101 mmol/L (98-108); Creatinine, Serum 1.71 mg/dL (0.70-1.20); EST Glomerular Filtration Rate 41 (>60); Glucose 101 mg/dL (70-99); Potassium 4.8 mmol/L (3.3-5.1); Sodium Level 137 mmol/L (133-145)
== END | disposition home or self-care (01) ==
LOC: LAB 12:37
PROVIDERS: PCP Family Medicine; Referring Provider Family Medicine; Visit Provider Family Medicine
DX: E03.9 Hypothyroidism, unspecified (principal)
CPT/HCPCS: 36415; 80048; 84439; 84443

== ENCOUNTER → 2024-07-15 | Outpatient (CLI) | payer MEDICARE, OTHER, SELFPAY ==
--- NOTE | 2024-07-15 10:58 | ECHOL_ITS ---
Reason For Study Reason For Study: DCMP Procedure This was a limited 2D transthoracic echocardiogram. Exam performed in department. Left Ventricle Normal LV size. Mild concentric left ventricular hypertrophy. The LV systolic function is normal. EF is 55 %. Right Ventricle Normal right ventricle. Atria The left atrium is severely enlarged. The right atrium is mildly enlarged. Mitral Valve Normal mitral valve. Tricuspid Valve Normal tricuspid valve. Aortic Valve Trisinus/trileaflet aortic valve. Pulmonic Valve The pulmonic valve is not well visualized. Great Vessels Normal sized aortic root. Pericardium/Pleural No pericardial effusion. MMode/2D Measurements & Calculations LVIDd: 5.5 cm IVSd: 1.3 cm LVOT diam: 2.0 cm LVIDs: 3.4 cm LVPWd: 1.3 cm LVOT area: 3.2 cm2 RVDd: 2.7 cm FS: 37.4 % Ao root diam: 3.4 cm LAV(MOD-bp): 71.6 ml LVAd ap4: 36.1 cm2 LA dimension: 5.3 cm LAV(MOD-bp) Indexed: 33.7 ml/m2 LVLd ap4: 9.8 cm LAV(MOD-sp2): 63.5 ml EDV(MOD-sp4): 110.6 ml LAV(MOD-sp4): 78.1 ml EDV(sp4-el): 112.4 ml LVAs ap4: 24.1 cm2 LVLs ap4: 8.2 cm ESV(MOD-sp4): 59.8 ml ESV(sp4-el): 60.3 ml EF(MOD-sp4): 45.9 % EF(sp4-el): 46.3 % SV(MOD-sp4): 50.8 ml SV(sp4-el): 52.1 ml LA A4 area: 24.1 cm2 SI(MOD-sp4): 23.9 ml/m2 LA dimension(2D): 4.6 cm RA A4 area: 19.4 cm2 ECHO/Echo, Limited Study Interpretation Summary Mild concentric left ventricular hypertrophy. The LV systolic function is normal. EF is 55 %. The left atrium is severely enlarged. The right atrium is mildly enlarged. Ordering Physician: Marquis Bautista Referring Physician: Marquis Bautista Performed By: Elizabeth Bowen RCS
== END | disposition home or self-care (01) ==
LOC: CVS 10:55
PROVIDERS: PCP Family Medicine; Referring Provider Internal Medicine Cardiovascular Disease; Visit Provider Internal Medicine Cardiovascular Disease
DX: Q20.8 Other congenital malformations of cardiac chambers and connections (principal)
CPT/HCPCS: 93308

== ENCOUNTER → 2024-08-07 | Outpatient (CLI) | payer MEDICARE, OTHER, SELFPAY ==
[2024-08-07 17:44] LABS: Hematocrit 33.9 % (40-54); Hemoglobin 11.3 g/dL (13.0-16.5); Immature Granulocytes Count 0.250 X10^3/uL (0.0-0.0); Mean Corp Hgb Conc 33.3 g/dL (32-36); Mean Corpuscular Volume 100.3 fL (80-94); Mean Platelet Vol. 10.7 fl (6.2-12.0); NRBC Flagged by Analyzer 0 % (0-5); Platelet Count 131 K/mm3 (150-450); RBC Distribution Width CV 16.2 % (11.6-14.6); RBC Distribution Width SD 59.8 fl (35.1-43.9); Red Blood Count 3.38 M/mm3 (4.6-6.2); White Blood Count 9.9 K/mm3 (4.4-11.0)
[2024-08-07 18:57] LABS: AST(SGOT) 13 U/L (<=37); Alanine Aminotransfer ALT/SGPT 8 U/L (<=46); Albumin, Serum 4.1 g/dL (3.4-4.8); Alkaline Phosphatase 88 U/L (40-129); Anion Gap 14 (5-15); BUN 31 mg/dL (4-19); BUN/Creat Ratio 20.5 RATIO (10-20); Calcium,Total 9.8 mg/dL (7.6-11.0); Carbon Dioxide 19.4 mmol/L (21.0-32.0); Chloride 102 mmol/L (98-108); Globulin 2.4 g/dL (2.2-4.2); Glucose 96 mg/dL (70-99); Magnesium 2.0 mg/dL (1.5-2.2); Potassium 4.5 mmol/L (3.3-5.1)
[2024-08-07 18:59] LABS: PSA,Total- Diagnostic < 0.02 ng/mL (0.00-4.00)
[2024-08-08 09:24] LABS: Mucous, Urine 0 SEEN /hpf (<or=2+)
[2024-08-08 09:56] LABS: Color, Urine Amber (Yellow); Glucose, Dipstick Normal (Normal); Ketone-Dipstick Negative (Negative); Leukocyte Esterase-Dipstick 25 /ul (Negative); Nitrite-Dipstick Negative (Negative); Occult Blood-Urine 250 /ul (Negative); Protein-Dipstick 100 mg/dl (Negative); Specific Gravity, Urine 1.015 (1.002-1.030); Urine Bilirubin Dipstick Negative (Negative)
[2024-08-08 10:07] LABS: Red Blood Cells-Urine > 100 SEEN /hpf (0-5)
[2024-08-08 10:08] LABS: Squamous Epithelial Cells - UA 0-5 SEEN /hpf (0-5)
== END | disposition home or self-care (01) ==
PROVIDERS: PCP Family Medicine; Referring Provider Family Medicine; Visit Provider Family Medicine
DX: I48.91 Unspecified atrial fibrillation (principal); J44.9 Chronic obstructive pulmonary disease, unspecified; C61 Malignant neoplasm of prostate; R31.9 Hematuria, unspecified
CPT/HCPCS: 36415; 80053; 81001; 83735; 84153; 85025; 87086; 87088

== ENCOUNTER → 2024-08-08 | Outpatient (CLI) | payer MEDICARE, OTHER, SELFPAY | END | disposition home or self-care (01) | LOC: US 16:10 | PROVIDERS: PCP Family Medicine; Referring Provider Nurse Practitioner Family; Visit Provider Nurse Practitioner Family | DX: R31.9 Hematuria, unspecified (principal) | CPT/HCPCS: 76770 ==

== ENCOUNTER → 2024-09-24 | Outpatient (CLI) | payer MEDICARE, OTHER, SELFPAY ==
[2024-09-24 08:26] LABS: Mucous, Urine 0 SEEN /hpf (<or=2+); Red Blood Cells-Urine 0 SEEN /hpf (0-5); Squamous Epithelial Cells - UA 0 SEEN /hpf (0-5)
[2024-09-24 08:41] LABS: Hematocrit 35.7 % (40-54); Hemoglobin 12.1 g/dL (13.0-16.5); Mean Corp Hgb Conc 33.9 g/dL (32-36); Mean Corpuscular Volume 99.2 fL (80-94); Mean Platelet Vol. 10.1 fl (6.2-12.0); Platelet Count 132 K/mm3 (150-450); RBC Distribution Width CV 15.4 % (11.6-14.6); RBC Distribution Width SD 56.0 fl (35.1-43.9); Red Blood Count 3.60 M/mm3 (4.6-6.2); White Blood Count 8.7 K/mm3 (4.4-11.0)
[2024-09-24 08:42] LABS: Color, Urine Yellow (Yellow); Glucose, Dipstick Normal (Normal); Ketone-Dipstick Negative (Negative); Leukocyte Esterase-Dipstick 25 /ul (Negative); Nitrite-Dipstick Negative (Negative); Occult Blood-Urine Negative /ul (Negative); Protein-Dipstick 15 mg/dl (Negative); Specific Gravity, Urine 1.015 (1.002-1.030); Urine Bilirubin Dipstick Negative (Negative)
== END | disposition home or self-care (01) ==
LOC: LAB 08:19
PROVIDERS: Nurse Practitioner Family; PCP Family Medicine; Referring Provider Internal Medicine Cardiovascular Disease; Visit Provider Internal Medicine Cardiovascular Disease
DX: I48.91 Unspecified atrial fibrillation (principal); R31.9 Hematuria, unspecified
CPT/HCPCS: 36415; 81001; 85027; 87086; 87088